=== PATIENT | female | born 1950 | race Caucasian/White ===

== ENCOUNTER 2019-04-03 11:00 | Inpatient (IN) ==
[2019-04-03] MEDS ORDERED: LEVSIN/MAALOX/LIDOC VISC PO PRN (11:30)
[2019-04-03] MEDS ORDERED: NORCO 5/325 MG TAB PO PRN (11:30)
[2019-04-03] MEDS ORDERED: MAGNESIUM SULFATE 1 GRAM/100 mL PREMIX 1 GM/100 ML BAG IV PRN (11:30)
[2019-04-03] MEDS ORDERED: COLACE CAP 100 MG PO PRN (11:30)
[2019-04-03] MEDS ORDERED: MAALOX or MYLANTA PO PRN (11:30)
[2019-04-03] MEDS ORDERED: K-RIDER 10 MEQ/NS 100 ML 10 MEQ/100 ML BAG IV PRN (11:30)
[2019-04-03] MEDS ORDERED: MILK OF MAGNESIA PO PRN (11:30)
[2019-04-03] MEDS: DUONEB 0.5 MG/3 MG (3 mL) NEB SCH ×3 (12:01→21:02)
[2019-04-03 12:11] VITALS: BMI 28.4
[2019-04-03] MEDS ORDERED: DUONEB 0.5 MG/3 MG (3 mL) NEB SCH (13:00)
[2019-04-03] MEDS: FORTAZ or TAZICEF VIAL INJ 1 G in NS 100 ML IV + SPIKE MINIBAG* 100 ML IV SCH ×2 (14:36→21:19)
[2019-04-03] MEDS: CARDIZEM TAB 30 MG PLAIN PO SCH ×2 (14:36→21:19)
--- NOTE | 2019-04-03 14:45 | PT/OTEVAL ---
PT/OT OBJECTIVES - HISTORY Prescription: PT consult Diagnosis: Swingbed-Pneumonia Renal failure Precautions: falls, SOB, O2 @ 2L PMH: Pneumonia. Hyponatremia, Renal failure, weakness, Bradycardia Prior Level of Function: Independent Other, comment: Pt lives by herself and is indep c gross functional mobility prior hosp - COGNITION Mental Status: Alert, Oriented, Name, Date, Place, Purpose, Anxious, Decreased Safety Awarenes Communication Status: Verbal, Hard of Hearing Ability to Follow Directions: 2 Step - BED MOBILITY Rolling: Moderate, x1 Scooting: Moderate, x1 Bridging: Moderate, x1 - TRANSFERS Supine to Sit: Moderate, x1 Sit to Stand: Moderate, x1 Sit or Stand Pivot: Moderate, x1 - BALANCE Static Sitting: Good Standing: Fair Dynamic Sitting: Fair Standing: Poor - NEUROMOTOR/SENSATION Naveen. Lower Ext Sensation: WFL Coordination: WFL Naveen. Upper Ext Sensation: WFL Coordination: WFL - ROM Bilateral LE ROM: WFL - STRENGTH Bilateral LE Strength Number: 3 Other comment: 3- Bilateral UE Strength Number: 3 - GAIT Pt. ambulates how many feet?: 30 Amount of assistance required: Moderate Amount of Assistance Required: Moderate Type of Assistive Device: Rolling Walker Comments: O2 @ 2L PT/OT ASSESSMENT - PT Problem List: Decreased Bed Mobility, Decreased Transfers, Decreased Gait, Decreased Balance, Decreased Safety, Decreased LE Strength - PT GOALS Short Term Goals Days: 10 Mobility: Pt to be indep c bed mobility to allow return to PLOF Transfers: Pt to be indep c transfers to allow return to PLOF Gait: Pt to ambulate 120 ft @ min supervision to increase tolerance Halfway Goals Days: 20 Gait: Pt to ambulate 250 ft @ minimal supervision to increase tolerance Balance: Pt to improve standing balance to G+ to reduce risk from falls. ROM/Strength: Pt to increase B LE mm strength 2-3 mm increments from baseline. - PATIENT GOALS Goals Discussed with Patient/Family: Yes Rehabilitation Potential: Good If yes, explain: SOB - PLAN Suggested Treatment Plan: Bed Mobility Training, Therapeutic Activity, Gait Training, Neuro Re-education, Therapeutic Ex with HEP, Patient Education - FREQUENCY AND DURATION PT: 6x Expected Continuation of Care at Discharge: Determined on Progress
--- NOTE | 2019-04-03 14:51 | PT/OTEVAL ---
PT/OT OBJECTIVES - HISTORY Prescription: OT consult Diagnosis: Pneumonia, Renal Failure Precautions: SOB, fall PMH: PMHx is significant but not limited to hyponatremia, renal failure & weakness. Prior Level of Function: Independent Other: Prior to hospitalization, Pt. is independent with ADLs,IADLs & functional mobility w/o any AD. Pt. still drives & no problems with balance prior to hospital admission. - COGNITION Mental Status: Alert, Oriented, Name, Date, Place, Decreased Safety Awarenes Communication Status: Verbal Ability to Follow Directions: 3 Step - TRANSFERS Supine to Sit: Moderate Sit to Stand: Moderate - ADL'S Feeding: Independent Grooming: Setup Upper Body ADL: Minimum Lower Body ADL: Minimum Toileting: Minimum - BALANCE Static Sitting: Good Standing: Fair Dynamic Sitting: Fair Standing: Poor - NEUROMOTOR/SENSATION Naveen. Lower Ext Sensation: WFL Coordination: WFL Naveen. Upper Ext Sensation: WFL Coordination: WFL Proprioception: WFL - HAND DOMINANCE Extremity Function: Hand Dominance: Right - ROM Bilateral UE ROM: WFL Muscle Tone: WFL - STRENGTH Bilateral LE Strength Number: 3 Other comment: 3- Bilateral UE Strength Number: 3 PT/OT ASSESSMENT - OT Problem List: Decreased Mobility ADL's, Decreased Safety Aware, Decreased Dressing, Decreased Bathing, Decreased Grooming, Decreased UE Strength, Other Other, comment: decreased functional activity tolerance - PT GOALS Short Term Goals Days: 10 Mobility: Pt to be indep c bed mobility to allow return to PLOF Transfers: Pt to be indep c transfers to allow return to PLOF Gait: Pt to ambulate 120 ft @ min supervision to increase tolerance Mcc Goals Days: 20 Gait: Pt to ambulate 250 ft @ minimal supervision to increase tolerance Balance: Pt to improve standing balance to G+ to reduce risk from falls. ROM/Strength: Pt to increase B LE mm strength 2-3 mm increments from baseline. - OT GOALS Mcc Goals Days: 20 Mobility for ADL's: Pt will improve toilet t/f independently with AE as needed Safety Awareness: Pt will demonstrate G safety awareness to decrease fall risk Dressing: Pt will perform UB/LB dressing independently with AE as needed. Bathing: Pt will improve bathing skills to independent level Grooming: Pt will improve grooming skills to independent level Upper Ext. Strength/Use: Pt will increase BUE strength to 5/5 to increase ADL,t/f and mobility Other: Pt will imporve F.A.T. to G to increase efficiency with ADL Short Term Goals Days: 10 Mobility for ADL's: Pt will improve toilet t/f w/supv A with AE as needed Safety Awareness: Pt will demonstrate F safety awareness to decrease fall risk Dressing: Pt will perform UB/LB dressing w/supv A with AE as needed. Bathing: Pt will improve bathing skills to w/supv A Grooming: Pt will improve grooming skills to w/supv A Upper Ext. Strength/Use: Pt will increase BUE strength to 4/5 to increase ADL,t/f and mobility Other: Pt will imporve F.A.T. to F+ to increase efficiency with ADL - PATIENT GOALS Patient/Family Goals: return to PLOF Goals Discussed with Patient/Family: Yes Rehabilitation Potential: good Justification for Potential: g family support, able to follow instruction - PLAN Suggested Treatment Plan: Therapeutic Activity, Gait Training, Self Care Training, Neuro Re-education, Therapeutic Ex with HEP, Home Management, Patient Education, Family Education - FREQUENCY AND DURATION OT: 5x a week x hospital stay Expected Continuation of Care at Discharge: Determined on Progress
--- NOTE | 2019-04-03 18:53 | DR.UPDATE ---
H&P Update History and Physical Update: History and Physical reviewed and patient examined. Changes noted: Yes with the following: HAS BEEN RECEIVING TREATMENT FOR PNEUMONIA. SHE WAS CHANGED TO SWINGBED STATUS TODAY FOR AN EXTENDED COURSE OF IV ANTIBIOTICS AND FOR PHYSICAL THERAPY AND REHAB DUE TO GENERALIZED WEAKNESS AND A DECLINE IN GAIT. DURING HER SWINGBED VISIT, WE WILL CONTINUE FORTAZ 1G IV TID, DIFLUCAN 200MG IV DAILY, ALBUMIN 25% IV DAILY, AND PROCAL AT 40 ML/HR. PHYSICAL THERAPY WILL WORK WITH PATIENT MULTIPLE TIMES A DAY. OTHERWISE, WE PLAN TO MONITOR LABS AND WILL MAKE FURTHER ORDERS BASED ON HER IMPROVEMENT AND CONDITION. Prescription drug monitoring program results: PDMP reviewed and no concerns identified H&P Reviewed: Yes Patient was examined?: Yes
[2019-04-03] MEDS ORDERED: PULMICORT NEB TX 0.5 MG NEB SCH (21:00)
[2019-04-03] MEDS: PULMICORT NEB TX 0.5 MG NEB SCH (21:01)
[2019-04-03] MEDS: MAGIC MOUTHWASH MT SCH (21:19)
[2019-04-03] MEDS: MUCINEX DM PO SCH (21:19)
[2019-04-04] MEDS: FORTAZ or TAZICEF VIAL INJ 1 G in NS 100 ML IV + SPIKE MINIBAG* 100 ML IV SCH ×3 (05:48→21:37)
[2019-04-04] MEDS: CARDIZEM TAB 30 MG PLAIN PO SCH ×3 (05:48→21:37)
[2019-04-04] MEDS: DUONEB 0.5 MG/3 MG (3 mL) NEB SCH ×4 (09:16→20:16)
[2019-04-04] MEDS: PULMICORT NEB TX 0.5 MG NEB SCH ×2 (09:17→20:16)
[2019-04-04] MEDS: PROCALAMINE 3 % 1,000 ML IV SCH (09:37)
[2019-04-04] MEDS: VSL#3 PO SCH (09:37)
[2019-04-04] MEDS: ALBUMIN HUMAN 25%- 100 ML 100 ML IV SCH (09:38)
[2019-04-04] MEDS: DIFLUCAN 200 MG IV PREMIX* 200 MG/100 ML BAG IV SCH (09:39)
[2019-04-04] MEDS: LOVENOX INJ 30 MG SYR SC SCH (09:39)
[2019-04-04] MEDS: MUCINEX DM PO SCH ×2 (09:39→20:42)
[2019-04-04] MEDS: MAGIC MOUTHWASH MT SCH ×4 (09:40→20:42)
[2019-04-04] MEDS: SYNTHROID 50 mcg TAB PO SCH (09:40)
[2019-04-04] MEDS: SINGULAIR TAB 10 MG PO SCH (09:40)
[2019-04-04] MEDS: PROTONIX TAB 40 MG PO SCH (09:40)
[2019-04-05] MEDS: CARDIZEM TAB 30 MG PLAIN PO SCH ×3 (05:09→21:10)
[2019-04-05] MEDS: FORTAZ or TAZICEF VIAL INJ 1 G in NS 100 ML IV + SPIKE MINIBAG* 100 ML IV SCH ×3 (05:10→21:10)
[2019-04-05] MEDS: MUCINEX DM PO SCH ×2 (08:57→20:33)
[2019-04-05] MEDS: VSL#3 PO SCH (08:57)
[2019-04-05] MEDS: LOVENOX INJ 30 MG SYR SC SCH (08:57)
[2019-04-05] MEDS: PROTONIX TAB 40 MG PO SCH (08:58)
[2019-04-05] MEDS: SYNTHROID 50 mcg TAB PO SCH (08:58)
[2019-04-05] MEDS: ALBUMIN HUMAN 25%- 100 ML 100 ML IV SCH (08:58)
[2019-04-05] MEDS: DIFLUCAN 200 MG IV PREMIX* 200 MG/100 ML BAG IV SCH (08:58)
[2019-04-05] MEDS: SINGULAIR TAB 10 MG PO SCH (08:58)
[2019-04-05] MEDS: MAGIC MOUTHWASH MT SCH ×4 (08:59→20:36)
[2019-04-05] MEDS: PULMICORT NEB TX 0.5 MG NEB SCH ×2 (09:10→20:40)
[2019-04-05] MEDS: DUONEB 0.5 MG/3 MG (3 mL) NEB SCH ×4 (09:10→20:40)
[2019-04-05] MEDS: PROCALAMINE 3 % 1,000 ML IV SCH (14:12)
[2019-04-06] MEDS ORDERED: NS 250 ML IV 250 ML IV ONE (02:37)
[2019-04-06] MEDS: FORTAZ or TAZICEF VIAL INJ 1 G in NS 100 ML IV + SPIKE MINIBAG* 100 ML IV SCH ×3 (05:15→21:00)
[2019-04-06] MEDS: CARDIZEM TAB 30 MG PLAIN PO SCH ×3 (05:15→21:00)
[2019-04-06] MEDS: NS 250 ML IV 250 ML IV PRN ×2 (05:16→20:52)
[2019-04-06 07:10] LABS: BASOPHILS % (AUTO) 0.8 % (0.2-1.0); EOSINOPHILS # (AUTO) 0.1 x10^3/uL (0.0-0.2); EOSINOPHILS % (AUTO) 1.9 % (0.9-2.9); HEMATOCRIT 25.7 % (36.0-47.0); HEMOGLOBIN 8.7 g/dL (12.0-16.0); LYMPHOCYTES # (AUTO) 0.5 X10^3/uL (1.3-2.9); LYMPHOCYTES % (AUTO) 13.4 % (21.0-51.0); MEAN CORPUSCULAR HGB CONC 33.8 g/dL (33.0-35.0); MEAN CORPUSCULAR VOLUME 82.9 fL (80.0-100.0); MEAN PLATELET VOLUME 7.7 fL (7.4-11.0); MONOCYTES # (AUTO) 0.3 x10^3/uL (0.3-0.8); NEUTROPHILS # (AUTO) 2.8 x10^3/uL (2.2-4.8); NEUTROPHILS % (AUTO) 75.9 % (42.0-75.0); PLATELET COUNT 193 X10^3/uL (150.0-450.0); RED CELL DISTRIBUTION WIDTH 14.9 % (11.6-16.5); WHITE BLOOD COUNT 3.6 X10^3/uL (3.6-10.0)
[2019-04-06 07:44] LABS: ALANINE AMINOTRANSFERASE 20 Units/L (12-78); ALBUMIN 2.8 g/dL (3.4-5.0); ALKALINE PHOSPHATASE 82 Units/L (46-116); ASPARTATE AMINO TRANSFERASE 15 Units/L (15-37); BLOOD UREA NITROGEN 14 mg/dL (7-18); CALCIUM 7.4 mg/dL (8.5-10.1); CHLORIDE 102 mmol/L (98-107); COR CA(FOR HYPOALB) 8.4 mg/dL (8.5-10.1); CREATININE 0.79 mg/dL (0.55-1.02); SODIUM 139 mmol/L (136-145); TOTAL PROTEIN 5.1 g/dL (6.4-8.2); eGFR NON BLACK RACES > 60 (>60)
[2019-04-06] MEDS: DUONEB 0.5 MG/3 MG (3 mL) NEB SCH ×4 (09:12→20:22)
[2019-04-06] MEDS: PULMICORT NEB TX 0.5 MG NEB SCH ×2 (09:13→20:22)
[2019-04-06] MEDS: LOVENOX INJ 30 MG SYR SC SCH (09:17)
[2019-04-06] MEDS: MUCINEX DM PO SCH ×2 (09:18→20:53)
[2019-04-06] MEDS: VSL#3 PO SCH (09:18)
[2019-04-06] MEDS: PROTONIX TAB 40 MG PO SCH (09:19)
[2019-04-06] MEDS: SINGULAIR TAB 10 MG PO SCH (09:19)
[2019-04-06] MEDS: SYNTHROID 50 mcg TAB PO SCH (09:19)
[2019-04-06] MEDS: DIFLUCAN 200 MG IV PREMIX* 200 MG/100 ML BAG IV SCH (09:19)
[2019-04-06] MEDS: ALBUMIN HUMAN 25%- 100 ML 100 ML IV SCH (09:30)
[2019-04-06] MEDS ORDERED: K-RIDER 10 MEQ/NS 100 ML 10 MEQ/100 ML BAG IV PRN (11:12)
[2019-04-06] MEDS ORDERED: POTASSIUM CHL 60 MEQ/NS 0.45% 500 ML IV PRN (11:12)
[2019-04-06] MEDS ORDERED: POTASSIUM CHL 40 MEQ/NS 0.45% 500 ML IV PRN (11:12)
[2019-04-06] MEDS ORDERED: KLOR-CON PO PRN (11:12)
[2019-04-06] MEDS ORDERED: POTASSIUM CHLORIDE LIQ 20 MEQ UDC PO PRN (11:12)
[2019-04-06] MEDS ORDERED: MICRO K EXTEN CAP 10 MEQ PO PRN (11:12)
[2019-04-06] MEDS: MAGIC MOUTHWASH MT SCH ×4 (11:13→20:52)
[2019-04-06] MEDS: PROCALAMINE 3 % 1,000 ML IV SCH (11:14)
[2019-04-06] MEDS: K-DUR TAB 20 MEQ PO PRN ×2 (11:40→15:42)
[2019-04-06] MEDS: MAGNESIUM SULFATE 1 GRAM/100 mL PREMIX 2 G/200 ML BAG IV SCH ×2 (13:15→15:42)
[2019-04-07] MEDS: PROCALAMINE 3 % 1,000 ML IV SCH ×2 (02:28→10:32)
[2019-04-07] MEDS: CARDIZEM TAB 30 MG PLAIN PO SCH ×3 (05:09→21:05)
[2019-04-07] MEDS: FORTAZ or TAZICEF VIAL INJ 1 G in NS 100 ML IV + SPIKE MINIBAG* 100 ML IV SCH ×3 (05:09→21:06)
[2019-04-07 06:22] LABS: MAGNESIUM 2.2 mg/dL (1.7-2.9)
[2019-04-07] MEDS: DUONEB 0.5 MG/3 MG (3 mL) NEB SCH ×4 (09:56→20:45)
[2019-04-07] MEDS: PULMICORT NEB TX 0.5 MG NEB SCH ×2 (09:56→20:45)
[2019-04-07] MEDS: MUCINEX DM PO SCH ×2 (09:58→21:05)
[2019-04-07] MEDS: DIFLUCAN 200 MG IV PREMIX* 200 MG/100 ML BAG IV SCH (09:58)
[2019-04-07] MEDS: SYNTHROID 50 mcg TAB PO SCH (09:59)
[2019-04-07] MEDS: ALBUMIN HUMAN 25%- 100 ML 100 ML IV SCH (09:59)
[2019-04-07] MEDS: SINGULAIR TAB 10 MG PO SCH (09:59)
[2019-04-07] MEDS: VSL#3 PO SCH (09:59)
[2019-04-07] MEDS: PROTONIX TAB 40 MG PO SCH (10:00)
[2019-04-07] MEDS: MAGIC MOUTHWASH MT SCH ×4 (10:01→21:06)
[2019-04-07] MEDS: LOVENOX INJ 30 MG SYR SC SCH (10:14)
[2019-04-08] MEDS: CARDIZEM TAB 30 MG PLAIN PO SCH ×3 (05:21→21:07)
[2019-04-08] MEDS: FORTAZ or TAZICEF VIAL INJ 1 G in NS 100 ML IV + SPIKE MINIBAG* 100 ML IV SCH ×3 (05:21→21:05)
[2019-04-08 06:33] LABS: ABG BASE EXCESS 5.5 mmol/L (-2.0-2.0)
[2019-04-08 06:34] LABS: ABG HCO3 33.5 mmol/L (22-26)
--- NOTE | 2019-04-08 07:52 | RAD ---
HISTORYSOBSTUDYPortable AP chestCOMPARISONFebruary 2019FINDINGSThere is increasing opacification of the right upper lobe with less volume loss. There are Kevin traits at the lung bases. The left upper lobe is clear and the heart size is normal. No significant effusion is suggested.IMPRESSIONIncreasingly severe consolidation in the right upper lobe2. Bibasilar subsegmental atelectasisElectronically signed by: EMI PEPE (Apr 08, 2019 07:50:47)
[2019-04-08] MEDS: LOVENOX INJ 30 MG SYR SC SCH (08:56)
[2019-04-08] MEDS: DIFLUCAN 200 MG IV PREMIX* 200 MG/100 ML BAG IV SCH (08:57)
[2019-04-08] MEDS: ALBUMIN HUMAN 25%- 100 ML 100 ML IV SCH (08:57)
[2019-04-08] MEDS: VSL#3 PO SCH (09:03)
[2019-04-08] MEDS: SYNTHROID 50 mcg TAB PO SCH (09:04)
[2019-04-08] MEDS: PROTONIX TAB 40 MG PO SCH (09:04)
[2019-04-08] MEDS: SINGULAIR TAB 10 MG PO SCH (09:04)
[2019-04-08] MEDS: MUCINEX DM PO SCH ×2 (09:04→21:06)
[2019-04-08] MEDS: MAGIC MOUTHWASH MT SCH ×4 (09:05→21:07)
[2019-04-08] MEDS: PROCALAMINE 3 % 1,000 ML IV SCH (09:05)
[2019-04-08] MEDS: PULMICORT NEB TX 0.5 MG NEB SCH ×2 (09:16→20:15)
[2019-04-08] MEDS: DUONEB 0.5 MG/3 MG (3 mL) NEB SCH ×4 (09:16→20:15)
[2019-04-08 11:49] LABS: BASOPHILS % (AUTO) 0.8 % (0.2-1.0); EOSINOPHILS % (AUTO) 0.4 % (0.9-2.9); HEMATOCRIT 24.7 % (36.0-47.0); HEMOGLOBIN 8.3 g/dL (12.0-16.0); LYMPHOCYTES # (AUTO) 0.4 X10^3/uL (1.3-2.9); LYMPHOCYTES % (AUTO) 8.3 % (21.0-51.0); MEAN CORPUSCULAR HEMOGLOBIN 27.8 pg (27.0-34.0); MEAN CORPUSCULAR HGB CONC 33.6 g/dL (33.0-35.0); MEAN CORPUSCULAR VOLUME 82.8 fL (80.0-100.0); MEAN PLATELET VOLUME 7.7 fL (7.4-11.0); MONOCYTES # (AUTO) 0.3 x10^3/uL (0.3-0.8); NEUTROPHILS # (AUTO) 3.7 x10^3/uL (2.2-4.8); NEUTROPHILS % (AUTO) 83.5 % (42.0-75.0); PLATELET COUNT 157 X10^3/uL (150.0-450.0); RED BLOOD COUNT 2.98 X10^6/uL (3.5-5.4); RED CELL DISTRIBUTION WIDTH 15.3 % (11.6-16.5); WHITE BLOOD COUNT 4.4 X10^3/uL (3.6-10.0)
--- NOTE | 2019-04-08 11:53 | CT ---
HISTORYCOUGH, SOB, PNEUMONIA, RESPIRATORY DISTRESSSTUDYCT chest after intravenous infusion of 100 milliliters Omnipaque 350. Sagittal and coronal reformations were provided. Axial MIPS were displayed. Dose reduction techniques were utilized.COMPARISONFebruary 2019FINDINGSThere are small bilateral pleural effusions increased in size from March 29 with bibasilar adjacent subsegmental atelectasis. There is little change in consolidation in the right upper lobe primarily involving the posterior and apical segments with multiple cavitary lesions. No pulmonary embolus is demonstrated. There is an unchanged approximately 2 cm cyst in the tail of the pancreas. Gallbladder is unremarkable. There is mild anterior wedging of T12 and L1 unchanged.IMPRESSIONIncreased size of small bilateral pleural effusions with adjacent subsegmental atelectasis2. Persistent consolidation and cystic changes or multiple cavities in the posterior and apical segments of the right upper lobe, not significantly changed.Electronically signed by: EIM PEPE (Apr 08, 2019 11:51:25)
[2019-04-08 11:56] LABS: ALANINE AMINOTRANSFERASE 33 Units/L (12-78); ALBUMIN 3.4 g/dL (3.4-5.0); ALKALINE PHOSPHATASE 138 Units/L (46-116); ASPARTATE AMINO TRANSFERASE 40 Units/L (15-37); BLOOD UREA NITROGEN 19 mg/dL (7-18); CALCIUM 7.8 mg/dL (8.5-10.1); CARBON DIOXIDE 31.6 mmol/L (21-32); CHLORIDE 98 mmol/L (98-107); CREATININE 1.02 mg/dL (0.55-1.02); SODIUM 134 mmol/L (136-145); TOTAL PROTEIN 6.1 g/dL (6.4-8.2); eGFR NON BLACK RACES 57 (>60)
[2019-04-08] MEDS: LEVAQUIN PREMIX IV 500 MG 500 MG/100 ML BAG IV SCH (12:00)
[2019-04-08] MEDS: LASIX IVP SCH ×2 (15:30→21:06)
[2019-04-09] MEDS: CARDIZEM TAB 30 MG PLAIN PO SCH ×3 (05:48→21:31)
[2019-04-09] MEDS: FORTAZ or TAZICEF VIAL INJ 1 G in NS 100 ML IV + SPIKE MINIBAG* 100 ML IV SCH ×3 (05:49→21:31)
[2019-04-09 06:41] LABS: BASOPHILS % (AUTO) 1.1 % (0.2-1.0); EOSINOPHILS # (AUTO) 0.1 x10^3/uL (0.0-0.2); EOSINOPHILS % (AUTO) 2.4 % (0.9-2.9); HEMATOCRIT 22.7 % (36.0-47.0); HEMOGLOBIN 7.5 g/dL (12.0-16.0); LYMPHOCYTES # (AUTO) 0.4 X10^3/uL (1.3-2.9); LYMPHOCYTES % (AUTO) 15.4 % (21.0-51.0); MEAN CORPUSCULAR HEMOGLOBIN 27.4 pg (27.0-34.0); MEAN CORPUSCULAR HGB CONC 33.2 g/dL (33.0-35.0); MEAN CORPUSCULAR VOLUME 82.6 fL (80.0-100.0); MEAN PLATELET VOLUME 7.9 fL (7.4-11.0); MONOCYTES # (AUTO) 0.2 x10^3/uL (0.3-0.8); MONOCYTES % (AUTO) 8.4 % (0.0-13.0); NEUTROPHILS # (AUTO) 1.8 x10^3/uL (2.2-4.8); NEUTROPHILS % (AUTO) 72.7 % (42.0-75.0); PLATELET COUNT 133 X10^3/uL (150.0-450.0); RED BLOOD COUNT 2.75 X10^6/uL (3.5-5.4); RED CELL DISTRIBUTION WIDTH 15.2 % (11.6-16.5); WHITE BLOOD COUNT 2.5 X10^3/uL (3.6-10.0)
--- NOTE | 2019-04-09 06:45 | RAD ---
HISTORYFollow-up pneumoniaSTUDYCHEST, 1 VIEWCOMPARISONFebruary 2019 plain film and chest CTFINDINGSThe heart is within normal limits in size. No congestive heart failure is noted. Persistent consolidation in the right upper lobe is unchanged. There are some cystic and possibly cavitary changes within the consolidation. The remainder of the lung arredondo are clear. The pleural effusions visible on CT are not well demonstrated on this examination.IMPRESSIONPersistent consolidation right upper lobe with some cystic or cavitary changes within the area of consolidation. The appearance is unchanged from the prior examinationElectronically signed by: ANA ROSA ANTOINE (Apr 09, 2019 06:44:31)
[2019-04-09 06:58] LABS: ALANINE AMINOTRANSFERASE 26 Units/L (12-78); ALBUMIN 2.9 g/dL (3.4-5.0); ALKALINE PHOSPHATASE 116 Units/L (46-116); ASPARTATE AMINO TRANSFERASE 21 Units/L (15-37); BLOOD UREA NITROGEN 16 mg/dL (7-18); CARBON DIOXIDE 31.9 mmol/L (21-32); CHLORIDE 99 mmol/L (98-107); COR CA(FOR HYPOALB) 8.9 mg/dL (8.5-10.1); CREATININE 0.95 mg/dL (0.55-1.02); SODIUM 135 mmol/L (136-145); TOTAL PROTEIN 5.6 g/dL (6.4-8.2); eGFR NON BLACK RACES > 60 (>60)
[2019-04-09 06:59] LABS: HYPOCHROMASIA SLIGHT; MICROCYTOSIS SLIGHT; PLATELET MORPHOLOGY COMMENT NORMAL (NORMAL)
[2019-04-09] MEDS: SYNTHROID 50 mcg TAB PO SCH (08:55)
[2019-04-09] MEDS: VSL#3 PO SCH (08:55)
[2019-04-09] MEDS: MUCINEX DM PO SCH ×2 (08:56→21:31)
[2019-04-09] MEDS: ALBUMIN HUMAN 25%- 100 ML 100 ML IV SCH (08:56)
[2019-04-09] MEDS: SINGULAIR TAB 10 MG PO SCH (08:56)
[2019-04-09] MEDS: PROTONIX TAB 40 MG PO SCH (08:57)
[2019-04-09] MEDS: LEVAQUIN PREMIX IV 500 MG 500 MG/100 ML BAG IV SCH (08:58)
[2019-04-09] MEDS: DIFLUCAN 200 MG IV PREMIX* 200 MG/100 ML BAG IV SCH (08:58)
[2019-04-09] MEDS: LOVENOX INJ 30 MG SYR SC SCH (08:59)
[2019-04-09] MEDS: LASIX IVP SCH ×2 (09:00→21:30)
[2019-04-09] MEDS: MAGIC MOUTHWASH MT SCH ×4 (09:01→21:31)
[2019-04-09] MEDS: PULMICORT NEB TX 0.5 MG NEB SCH ×2 (09:08→20:30)
[2019-04-09] MEDS: DUONEB 0.5 MG/3 MG (3 mL) NEB SCH ×4 (09:08→20:30)
[2019-04-09] MEDS ORDERED: TYLENOL 325 MG TAB PO PRN (09:38)
[2019-04-09] MEDS ORDERED: BENADRYL INJ 50 MG VIAL IVP ONE (09:38)
[2019-04-09] MEDS ORDERED: LASIX IVP ONE (09:38)
[2019-04-09] MEDS: PROCALAMINE 3 % 1,000 ML IV SCH (14:14)
[2019-04-09] MEDS ORDERED: BENADRYL INJ 50 MG VIAL ONE (17:09)
[2019-04-10 03:08] LABS: HEMATOCRIT 29.3 % (36.0-47.0)
[2019-04-10] MEDS: CARDIZEM TAB 30 MG PLAIN PO SCH ×3 (05:52→21:00)
[2019-04-10] MEDS: FORTAZ or TAZICEF VIAL INJ 1 G in NS 100 ML IV + SPIKE MINIBAG* 100 ML IV SCH ×3 (05:53→21:01)
[2019-04-10] MEDS: PULMICORT NEB TX 0.5 MG NEB SCH ×2 (08:33→19:52)
[2019-04-10] MEDS: DUONEB 0.5 MG/3 MG (3 mL) NEB SCH ×4 (08:33→19:52)
[2019-04-10] MEDS: ALBUMIN HUMAN 25%- 100 ML 100 ML IV SCH (09:18)
[2019-04-10] MEDS: LEVAQUIN PREMIX IV 500 MG 500 MG/100 ML BAG IV SCH (09:18)
[2019-04-10] MEDS: DIFLUCAN 200 MG IV PREMIX* 200 MG/100 ML BAG IV SCH (09:18)
[2019-04-10] MEDS: VSL#3 PO SCH (09:19)
[2019-04-10] MEDS: MUCINEX DM PO SCH ×2 (09:19→20:59)
[2019-04-10] MEDS: LASIX IVP SCH ×2 (09:20→20:59)
[2019-04-10] MEDS: SYNTHROID 50 mcg TAB PO SCH (09:20)
[2019-04-10] MEDS: MAGIC MOUTHWASH MT SCH ×4 (09:20→21:01)
[2019-04-10] MEDS: PROTONIX TAB 40 MG PO SCH (09:21)
[2019-04-10] MEDS: SINGULAIR TAB 10 MG PO SCH (09:21)
[2019-04-10] MEDS: MVI IV SCH ×3 (16:21)
[2019-04-10] MEDS: TPN ELECTROLYTES IV SCH ×3 (16:21)
[2019-04-10] MEDS: [UNRECOGNIZED DRUG - OTHER] IV SCH ×3 (16:21)
[2019-04-10] MEDS: CLINIMIX IV SCH ×3 (16:21)
[2019-04-10] MEDS: K-DUR TAB 20 MEQ PO PRN (21:00)
[2019-04-11] MEDS: FORTAZ or TAZICEF VIAL INJ 1 G in NS 100 ML IV + SPIKE MINIBAG* 100 ML IV SCH ×2 (05:38→14:17)
[2019-04-11] MEDS: CARDIZEM TAB 30 MG PLAIN PO SCH ×2 (05:38→14:17)
[2019-04-11 06:09] LABS: BASOPHILS % (AUTO) 1.2 % (0.2-1.0); EOSINOPHILS # (AUTO) 0.1 x10^3/uL (0.0-0.2); EOSINOPHILS % (AUTO) 3.8 % (0.9-2.9); HEMATOCRIT 28.7 % (36.0-47.0); HEMOGLOBIN 9.9 g/dL (12.0-16.0); LYMPHOCYTES # (AUTO) 0.4 X10^3/uL (1.3-2.9); LYMPHOCYTES % (AUTO) 12.9 % (21.0-51.0); MEAN CORPUSCULAR HEMOGLOBIN 28.4 pg (27.0-34.0); MEAN CORPUSCULAR HGB CONC 34.6 g/dL (33.0-35.0); MEAN CORPUSCULAR VOLUME 82.3 fL (80.0-100.0); MEAN PLATELET VOLUME 7.6 fL (7.4-11.0); MONOCYTES # (AUTO) 0.3 x10^3/uL (0.3-0.8); MONOCYTES % (AUTO) 10.3 % (0.0-13.0); NEUTROPHILS # (AUTO) 2.2 x10^3/uL (2.2-4.8); NEUTROPHILS % (AUTO) 71.8 % (42.0-75.0); PLATELET COUNT 184 X10^3/uL (150.0-450.0); RED BLOOD COUNT 3.49 X10^6/uL (3.5-5.4); RED CELL DISTRIBUTION WIDTH 14.7 % (11.6-16.5); WHITE BLOOD COUNT 3.1 X10^3/uL (3.6-10.0)
[2019-04-11 06:20] LABS: PREALBUMIN 11.9 mg/dL (18-35.7)
--- NOTE | 2019-04-11 06:21 | RAD ---
HISTORYShortness of breathSTUDYCHEST, 1 VIEWCOMPARAshtabula County Medical Centerbruary 2019FINDINGSThe heart remains within normal limits in size. No congestive heart failure is noted. There is persistent consolidation in the right upper lobe within which there is some cystic or cavitary change. There is now some right upper lobe volume loss as evidence by upward bowing of the minor fissure. The remainder of the lung arredondo are hyperinflated. There is now a new right lower lobe infiltrate present. The left lung is clear. No pleural effusions are identified. The bony thorax is unremarkable.IMPRESSIONPersistent right upper lobe consolidation now with some associated volume lossNew right basilar lung infiltrateLeft lung remains hyperinflated but clearElectronically signed by: ANA ROSA ANTOINE (Apr 11, 2019 06:20:45)
[2019-04-11 06:31] LABS: ALANINE AMINOTRANSFERASE 18 Units/L (12-78); ALBUMIN 3.1 g/dL (3.4-5.0); ALKALINE PHOSPHATASE 94 Units/L (46-116); ASPARTATE AMINO TRANSFERASE 15 Units/L (15-37); BLOOD UREA NITROGEN 16 mg/dL (7-18); CALCIUM 8.3 mg/dL (8.5-10.1); CARBON DIOXIDE 33.9 mmol/L (21-32); CHLORIDE 98 mmol/L (98-107); COR NA(FOR HYPERGLY) 139 mmol/L (136-145); CREATININE 0.97 mg/dL (0.55-1.02); MAGNESIUM 1.5 mg/dL (1.7-2.9); PHOSPHORUS 2.8 mg/dL (2.6-4.7); SODIUM 138 mmol/L (136-145); TRIGLYCERIDES 63 mg/dL (0-150); eGFR NON BLACK RACES > 60 (>60)
[2019-04-11 08:29] VITALS: BP 158/92
[2019-04-11] MEDS: MAGNESIUM SULFATE 1 GRAM/100 mL PREMIX 1 GM/100 ML BAG IV PRN ×2 (08:42→09:42)
[2019-04-11] MEDS: PULMICORT NEB TX 0.5 MG NEB SCH (08:53)
[2019-04-11] MEDS: DUONEB 0.5 MG/3 MG (3 mL) NEB SCH ×2 (08:53→13:19)
[2019-04-11] MEDS: ALBUMIN HUMAN 25%- 100 ML 100 ML IV SCH (09:37)
[2019-04-11] MEDS: LEVAQUIN PREMIX IV 500 MG 500 MG/100 ML BAG IV SCH (09:38)
[2019-04-11] MEDS: DIFLUCAN 200 MG IV PREMIX* 200 MG/100 ML BAG IV SCH (09:38)
[2019-04-11] MEDS: LASIX IVP SCH (09:38)
[2019-04-11] MEDS: MAGIC MOUTHWASH MT SCH ×2 (09:39→13:53)
[2019-04-11] MEDS: PROTONIX TAB 40 MG PO SCH (09:39)
[2019-04-11] MEDS: MUCINEX DM PO SCH (09:39)
[2019-04-11] MEDS: SINGULAIR TAB 10 MG PO SCH (09:40)
[2019-04-11] MEDS: SYNTHROID 50 mcg TAB PO SCH (09:40)
[2019-04-11] MEDS: VSL#3 PO SCH (09:40)
[2019-04-11 09:48] LABS: ABG BASE EXCESS 11.4 mmol/L (-2.0-2.0); ABG HCO3 36.5 mmol/L (22-26)
--- NOTE | 2019-04-11 10:37 | PCM.PROG ---
Progress Note - Progress Note for Day of Date of Exam: 04/06/19 - Subjective Subjective: IS CURRENTLY SWINGBED STATUS FOR PNEUMONIA. SHE IS RECEIVING IV ANTIBIOTICS, RESPIRATORY TX, AND SUPPLEMENTAL OXGYEN. HOME MEDICATIONS WERE ALSO RESUEMED. SHE IS ALSO RECEIVING PHYSICAL THERAPY AND OCCUPATIONAL THERAPY FOR GENERALIZED WEAKNESS AND A DECLINE IN GAIT AND ADLs. TODAY, SHE IS ALERT AND ORIENTED, LYING IN BED ON MORNING ROUND. SHE CONTINUES WITH COUGH AND WEAKNESS THIS MORNING, BUT REPORTS SLIGHT IMPROVEMENT IN SYMPTOMS. ON EXAMINATION, HEART IS REGULAR IN RATE AND RHYTHM. BILATERAL LUNGS CONTINUE WITH SCATTERED WHEEZING AND RHONCHI THROUGHOUT. ABDOMEN IS ROUND, SOFT, AND NON-TENDER WITH NORMAL BOWEL SOUNDS NOTED IN ALL QUADRANTS. HER VITALS HIS MORNING ARE: 98.0-83-20-94%-150/77. LABS WERE OBTAINED. ABNORMAL LAB VALUES INCLUDE THE FOLLOWING: RBC 3.10, HGB 8.7, HCT 25.7, POTASSIUM 3.3, CARBON DIOXIDE 33.0, GLUCOSE 101, CALCIUM 7.4, TOTAL PROTEIN 5.1, ALBUMIN 2.8. SPUTUM AND BLOOD CULTURES ARE NEGATIVE. SHE IS RECEIVING IV FORTAZ, SOLU-MEDROL 40MG IV Q8H, DIFLUCAN, ALBUMIN IV, RESPIRATORY TX, SUPPELMENTAL OXYGEN, MUCOMYST, AND CARDIZEM 30MG PO TID. WE WILL CONTINUE WITH CURRENT PLAN OF CARE TODAY AND ADD THE POTASSIUM AND MAGNESIUM PROTOCOLS. OTHERWISE, WE WILL CONTINUE TO MONITOR LABS AND XRAY. - Past Medical Family Social History Past Med/Fam/Surg Hx: No changes since H&P Allergies: Allergies No Known Drug Allergies Allergy (Verified 03/21/19 09:43) - Review of Systems ROS: No change since H&P - Vital Signs and I&O's Vital Signs: Temperature 97.9 F Pulse Rate [Right Radial] 80 Pulse Rate 75 Respiratory Rate 20 Blood Pressure [Left Arm] 159/92 Blood Pressure [Right Arm] 158/92 O2 Sat by Pulse Oximetry 98 Intake and Output: Intake & Output 04/08/19 04/09/19 04/10/19 04/11/19 11:59 11:59 11:59 11:59 Intake Total 1780 / 1780 1030 / 1030 2470 / 2470 2340 / 2340 Balance 1780 / 1780 1030 / 1030 2470 / 2470 2340 / 2340 - Physical Exam Oriented: Normal Eyes: Normal Ear: Normal Nose: Normal Throat: Normal Respiratory: Generalized, Diminished, Wheezes, Rhonchi Cardiovascular: Normal : Normal Auscultation: Bowel Sounds: Normal Palpation: Normal Tenderness: Normal Skin: Normal Musculoskeletal: Normal Psychiatric: Normal Mood Description: Calm Affect: Normal Speech Pattern: Clear, Appropriate - Laboratory and Diagnostics Result Diagrams: 04/11/19 05:49 04/11/19 05:49 Labs: Laboratory WBC 3.1 X10^3/uL (3.6-10.0) L 04/11/19 05:49 RBC 3.49 X10^6/uL (3.5-5.4) L 04/11/19 05:49 Hgb 9.9 g/dL (12.0-16.0) L 04/11/19 05:49 Hct 28.7 % (36.0-47.0) L 04/11/19 05:49 MCV 82.3 fL (80.0-100.0) 04/11/19 05:49 MCH 28.4 pg (27.0-34.0) 04/11/19 05:49 MCHC 34.6 g/dL (33.0-35.0) 04/11/19 05:49 RDW 14.7 % (11.6-16.5) 04/11/19 05:49 Plt Count 184 X10^3/uL (150.0-450.0) 04/11/19 05:49 Plt Count Comment Adequate (ADEQUATE) 04/09/19 06:10 MPV 7.6 fL (7.4-11.0) 04/11/19 05:49 Neut % (Auto) 71.8 % (42.0-75.0) 04/11/19 05:49 Lymph % (Auto) 12.9 % (21.0-51.0) L 04/11/19 05:49 [place] % (Auto) 10.3 % (0.0-13.0) 04/11/19 05:49 Eos % (Auto) 3.8 % (0.9-2.9) H 04/11/19 05:49 Baso % (Auto) 1.2 % (0.2-1.0) H 04/11/19 05:49 Neut # (Auto) 2.2 x10^3/uL (2.2-4.8) 04/11/19 05:49 Lymph # (Auto) 0.4 X10^3/uL (1.3-2.9) L 04/11/19 05:49 [place] # (Auto) 0.3 x10^3/uL (0.3-0.8) 04/11/19 05:49 Eos # (Auto) 0.1 x10^3/uL (0.0-0.2) 04/11/19 05:49 Baso # (Auto) 0.0 X10^3/uL (0.0-0.1) 04/11/19 05:49 Absolute Nucleated RBC 0.0 /100WBC 04/11/19 05:49 Plt Morphology Comment Normal (NORMAL) 04/09/19 06:10 RBC Morphology Abnormal (NORMAL) A 04/09/19 06:10 Hypochromasia Slight A 04/09/19 06:10 Microcytosis Slight A 04/09/19 06:10 Sample Site Left brachial 04/11/19 09:40 ABG pH 7.480 (7.35-7.45) H 04/11/19 09:40 ABG pCO2 49.0 mmHg (35.0-45.0) H 04/11/19 09:40 ABG pO2 71.0 mmHg (80.0-100.0) L 04/11/19 09:40 ABG HCO3 36.5 mmol/L (22-26) H* 04/11/19 09:40 ABG O2 Saturation 95.0 % (90-100) 04/11/19 09:40 ABG Base Excess 11.4 mmol/L (-2.0-2.0) H 04/11/19 09:40 Jose Miguel Test Na 04/11/19 09:40 A-a Gradient 124.0 mmHg 04/11/19 09:40 FiO2 36.0 04/11/19 09:40 Blood Gas Comments Ramana well aw 04/11/19 09:40 Sodium 138 mmol/L (136-145) 04/11/19 05:49 Corrected Sodium 139 mmol/L (136-145) 04/11/19 05:49 Potassium 2.9 mmol/L (3.5-5.1) L* 04/11/19 05:49 Chloride 98 mmol/L (98-107) 04/11/19 05:49 Carbon Dioxide 33.9 mmol/L (21-32) H 04/11/19 05:49 BUN 16 mg/dL (7-18) 04/11/19 05:49 Creatinine 0.97 mg/dL (0.55-1.02) 04/11/19 05:49 Est GFR (MDRD) Af Amer > 60 (>60) 04/11/19 05:49 Est GFR (MDRD) Non-Af > 60 (>60) 04/11/19 05:49 Glucose 121 mg/dL (65-99) H 04/11/19 05:49 Calcium 8.3 mg/dL (8.5-10.1) L 04/11/19 05:49 Corrected Calcium 9.0 mg/dL (8.5-10.1) 04/11/19 05:49 Phosphorus 2.8 mg/dL (2.6-4.7) 04/11/19 05:49 Magnesium 1.5 mg/dL (1.7-2.9) L 04/11/19 05:49 Total Bilirubin 0.50 mg/dL (0.2-1.0) 04/11/19 05:49 AST 15 Units/L (15-37) 04/11/19 05:49 ALT 18 Units/L (12-78) 04/11/19 05:49 Alkaline Phosphatase 94 Units/L (46-116) 04/11/19 05:49 Total Protein 6.0 g/dL (6.4-8.2) L 04/11/19 05:49 Albumin 3.1 g/dL (3.4-5.0) L 04/11/19 05:49 Globulin 2.9 g/dL (2.5-4.5) 04/11/19 05:49 Albumin/Globulin Ratio 1.1 Ratio (1.1-2.1) 04/11/19 05:49 Prealbumin 11.9 mg/dL (18-35.7) L 04/11/19 05:49 Triglycerides 63 mg/dL (0-150) 04/11/19 05:49 Blood Type B NEGATIVE 04/09/19 10:02 Antibody Screen Negative 04/09/19 10:02 Crossmatch See Detail 04/09/19 10:02 - Plan (1) Pneumonia Status: Acute Qualifiers: Pneumonia type: due to unspecified organism Laterality: right Lung location: upper lobe of lung Qualified Code(s): J18.9 - Pneumonia, unspecified organism Plan: IV FORTAZ, IV DIFLUCAN, RESPIRATORY TX, SUPPLEMENTAL OXYGEN, CONTINUE TO MONITOR (2) Yeast infection Status: Acute Plan: DIFLUCAN 200MG IV DAILY, CONTINUE TO MONITOR
--- NOTE | 2019-04-11 10:48 | PCM.PROG ---
Progress Note - Progress Note for Day of Date of Exam: 04/09/19 - Subjective Subjective: IS CURRENTLY SWINGBED STATUS FOR PNEUMONIA. SHE IS RECEIVING IV ANTIBIOTICS, RESPIRATORY TX, AND SUPPLEMENTAL OXGYEN. HOME MEDICATIONS WERE ALSO RESUEMED. SHE IS ALSO RECEIVING PHYSICAL THERAPY AND OCCUPATIONAL THERAPY FOR GENERALIZED WEAKNESS AND A DECLINE IN GAIT AND ADLs. PATIENT HAD AN ACUTE DECLINE YESTERDAY IN HER RESPIRATORY STATUS. SHE WAS PLACED ON THE BIPAP. ABG, LABS, AND CHEST XRAY WERE OBTAINED. ABG REVEALED: PH 7.320, PC02 65.0, P02 75.0, HC03 33.5, 02 SATURATION 94.0, BASE EXCESS 5.5. CHEST XRAY REVEALED: Increasingly severe consolidation in the right upper lobe. Bibasilar subsegmental atelectasis. TODAY, SHE IS ALERT AND ORIENTED, LYING IN BED ON MORNING ROUND. SHE IS CURRENTLY ON NASAL CANNULA.SHE HAS USED THE BIPAP THROUGHOUT THE NIGHT AND THIS MORNING. SHE CONTINUES WITH COUGH AND WEAKNESS THIS MORNING. ON EXAMINATION, HEART IS REGULAR IN RATE AND RHYTHM. BILATERAL LUNGS CONTINUE WITH SCATTERED WHEEZING AND RHONCHI THROUGHOUT. ABDOMEN IS ROUND, SOFT, AND NON-TENDER WITH NORMAL BOWEL SOUNDS NOTED IN ALL QUADRANTS. HER VITALS HIS MORNING ARE: 98.0-78-20-94%-147/79. LABS WERE OBTAINED. ABNORMAL LAB VALUES INCLUDE THE FOLLOWING: WBC 2.5, RBC 2.75, HGB 7.5, HCT 22.7, PLT COUNT 133, SODIUM 135, POTASSIUM 3.4, CALCIUM 8.0, TOTAL PROTEIN 5.6, ALBUMIN 2.9. SPUTUM AND BLOOD CULTURES ARE NEGATIVE. SHE IS RECEIVING IV FORTAZ, IV LEVAQUIN, DIFLUCAN, ALBUMIN IV, RESPIRATORY TX, SUPPELMENTAL OXYGEN, AND CARDIZEM 30MG PO TID. WE WILL CONTINUE WITH CURRENT PLAN OF CARE TODAY AND TRANSFUSE 2 UNITS OF PRBC. OTHERWISE, WE WILL CONTINUE TO MONITOR LABS AND CHEST XRAY AND MAKE ADJUSTMENTS NEEDED. - Past Medical Family Social History Past Med/Fam/Surg Hx: No changes since H&P Allergies: Allergies No Known Drug Allergies Allergy (Verified 03/21/19 09:43) - Review of Systems ROS: No change since H&P - Vital Signs and I&O's Vital Signs: Temperature 97.9 F Pulse Rate [Right Radial] 80 Pulse Rate 75 Respiratory Rate 20 Blood Pressure [Left Arm] 159/92 Blood Pressure [Right Arm] 158/92 O2 Sat by Pulse Oximetry 98 Intake and Output: Intake & Output 04/08/19 04/09/19 04/10/19 04/11/19 11:59 11:59 11:59 11:59 Intake Total 1780 / 1780 1030 / 1030 2470 / 2470 2340 / 2340 Balance 1780 / 1780 1030 / 1030 2470 / 2470 2340 / 2340 - Physical Exam Oriented: Normal Eyes: Normal Ear: Normal Nose: Normal Throat: Normal Respiratory: Generalized, Diminished, Wheezes, Rhonchi Cardiovascular: Normal : Normal Auscultation: Bowel Sounds: Normal Palpation: Normal Tenderness: Normal Skin: Normal Musculoskeletal: Normal Psychiatric: Normal Mood Description: Calm Affect: Normal Speech Pattern: Clear, Appropriate - Laboratory and Diagnostics Result Diagrams: 04/11/19 05:49 04/11/19 05:49 Labs: Laboratory WBC 3.1 X10^3/uL (3.6-10.0) L 04/11/19 05:49 RBC 3.49 X10^6/uL (3.5-5.4) L 04/11/19 05:49 Hgb 9.9 g/dL (12.0-16.0) L 04/11/19 05:49 Hct 28.7 % (36.0-47.0) L 04/11/19 05:49 MCV 82.3 fL (80.0-100.0) 04/11/19 05:49 MCH 28.4 pg (27.0-34.0) 04/11/19 05:49 MCHC 34.6 g/dL (33.0-35.0) 04/11/19 05:49 RDW 14.7 % (11.6-16.5) 04/11/19 05:49 Plt Count 184 X10^3/uL (150.0-450.0) 04/11/19 05:49 Plt Count Comment Adequate (ADEQUATE) 04/09/19 06:10 MPV 7.6 fL (7.4-11.0) 04/11/19 05:49 Neut % (Auto) 71.8 % (42.0-75.0) 04/11/19 05:49 Lymph % (Auto) 12.9 % (21.0-51.0) L 04/11/19 05:49 Terry % (Auto) 10.3 % (0.0-13.0) 04/11/19 05:49 Eos % (Auto) 3.8 % (0.9-2.9) H 04/11/19 05:49 Baso % (Auto) 1.2 % (0.2-1.0) H 04/11/19 05:49 Neut # (Auto) 2.2 x10^3/uL (2.2-4.8) 04/11/19 05:49 Lymph # (Auto) 0.4 X10^3/uL (1.3-2.9) L 04/11/19 05:49 Terry # (Auto) 0.3 x10^3/uL (0.3-0.8) 04/11/19 05:49 Eos # (Auto) 0.1 x10^3/uL (0.0-0.2) 04/11/19 05:49 Baso # (Auto) 0.0 X10^3/uL (0.0-0.1) 04/11/19 05:49 Absolute Nucleated RBC 0.0 /100WBC 04/11/19 05:49 Plt Morphology Comment Normal (NORMAL) 04/09/19 06:10 RBC Morphology Abnormal (NORMAL) A 04/09/19 06:10 Hypochromasia Slight A 04/09/19 06:10 Microcytosis Slight A 04/09/19 06:10 Sample Site Left brachial 04/11/19 09:40 ABG pH 7.480 (7.35-7.45) H 04/11/19 09:40 ABG pCO2 49.0 mmHg (35.0-45.0) H 04/11/19 09:40 ABG pO2 71.0 mmHg (80.0-100.0) L 04/11/19 09:40 ABG HCO3 36.5 mmol/L (22-26) H* 04/11/19 09:40 ABG O2 Saturation 95.0 % (90-100) 04/11/19 09:40 ABG Base Excess 11.4 mmol/L (-2.0-2.0) H 04/11/19 09:40 Jose Miguel Test Na 04/11/19 09:40 A-a Gradient 124.0 mmHg 04/11/19 09:40 FiO2 36.0 04/11/19 09:40 Blood Gas Comments Ramana well aw 04/11/19 09:40 Sodium 138 mmol/L (136-145) 04/11/19 05:49 Corrected Sodium 139 mmol/L (136-145) 04/11/19 05:49 Potassium 2.9 mmol/L (3.5-5.1) L* 04/11/19 05:49 Chloride 98 mmol/L (98-107) 04/11/19 05:49 Carbon Dioxide 33.9 mmol/L (21-32) H 04/11/19 05:49 BUN 16 mg/dL (7-18) 04/11/19 05:49 Creatinine 0.97 mg/dL (0.55-1.02) 04/11/19 05:49 Est GFR (MDRD) Af Amer > 60 (>60) 04/11/19 05:49 Est GFR (MDRD) Non-Af > 60 (>60) 04/11/19 05:49 Glucose 121 mg/dL (65-99) H 04/11/19 05:49 Calcium 8.3 mg/dL (8.5-10.1) L 04/11/19 05:49 Corrected Calcium 9.0 mg/dL (8.5-10.1) 04/11/19 05:49 Phosphorus 2.8 mg/dL (2.6-4.7) 04/11/19 05:49 Magnesium 1.5 mg/dL (1.7-2.9) L 04/11/19 05:49 Total Bilirubin 0.50 mg/dL (0.2-1.0) 04/11/19 05:49 AST 15 Units/L (15-37) 04/11/19 05:49 ALT 18 Units/L (12-78) 04/11/19 05:49 Alkaline Phosphatase 94 Units/L (46-116) 04/11/19 05:49 Total Protein 6.0 g/dL (6.4-8.2) L 04/11/19 05:49 Albumin 3.1 g/dL (3.4-5.0) L 04/11/19 05:49 Globulin 2.9 g/dL (2.5-4.5) 04/11/19 05:49 Albumin/Globulin Ratio 1.1 Ratio (1.1-2.1) 04/11/19 05:49 Prealbumin 11.9 mg/dL (18-35.7) L 04/11/19 05:49 Triglycerides 63 mg/dL (0-150) 04/11/19 05:49 Blood Type B NEGATIVE 04/09/19 10:02 Antibody Screen Negative 04/09/19 10:02 Crossmatch See Detail 04/09/19 10:02 - Plan (1) Pneumonia Status: Acute Qualifiers: Pneumonia type: due to unspecified organism Laterality: right Lung location: upper lobe of lung Qualified Code(s): J18.9 - Pneumonia, unspecified organism Plan: IV FORTAZ, IV DIFLUCAN, RESPIRATORY TX, SUPPLEMENTAL OXYGEN, CONTINUE TO MONITOR (2) Yeast infection Status: Acute Plan: DIFLUCAN 200MG IV DAILY, CONTINUE TO MONITOR (3) Anemia Status: Acute Qualifiers: Anemia type: unspecified type Qualified Code(s): D64.9 - Anemia, unspecified Plan: TRANSFUSE 2 UNITS PRBC, CONTINUE TO MONITOR
[2019-04-11] MEDS: CLINIMIX IV SCH ×3 (14:03)
[2019-04-11] MEDS: TPN ELECTROLYTES IV SCH ×3 (14:03)
[2019-04-11] MEDS: [UNRECOGNIZED DRUG - OTHER] IV SCH ×3 (14:03)
[2019-04-11] MEDS: MVI IV SCH ×3 (14:03)
== END 2019-04-11 15:15 | disposition home or self-care (01) | DRG 194 ==
LOC: MED/SURG 11:00
PROVIDERS: ADMIT Internal Medicine; ATTEND Internal Medicine
DX: Z51.89 Encounter for other specified aftercare; D64.9 Anemia, unspecified; R94.31 Abnormal electrocardiogram [ECG] [EKG]; I12.9 Hypertensive chronic kidney disease with stage 1 through stage 4 chronic kidney disease, or unspecified chronic kidney disease; R26.89 Other abnormalities of gait and mobility; E86.0 Dehydration; M54.89 Other dorsalgia; B37.89 Other sites of candidiasis; K21.9 Gastro-esophageal reflux disease without esophagitis; J18.9 Pneumonia, unspecified organism; R06.02 Shortness of breath; E87.1 Hypo-osmolality and hyponatremia; R53.1 Weakness; R00.1 Bradycardia, unspecified; N18.9 Chronic kidney disease, unspecified
CPT/HCPCS: 36415; 36600; 71010; 71045; 71260; 80053; 82803; 83735; 84100; 84132; 84134; 84478; 85014; 85018; 85025; 86850; 86900; 86901; 86922; 94640; 94660; 94669; 97110; 97116; 97162; 97165; 97530; 97535; A4222; A4618; A7030; B4189; B5200; J0713; J1200; J1450; J1650; J1940; J1956; J3475; J7050; J7620; J7626; P9016; P9047

== ENCOUNTER 2021-01-24 22:47 | Inpatient (IN) ==
[2021-01-24] MEDS ORDERED: SOLU-Medrol 125 MG VIAL IVP ONE (23:07)
[2021-01-24] MEDS ORDERED: DUONEB 0.5 MG/3 MG (3 mL) NEB ONE ×2 (23:07→23:16)
--- NOTE | 2021-01-24 23:08 | DR.SOBA ---
HPI Time Seen Time Seen by Provider: 01/24/21 23:07 HPI Comment HPI Comment: Cough, congestion and worsening sob over the past week for which she went to see her pcp earlier today; taking levaquin and given a shot of solu- medrol at office today; acutely worsened tonight prompting visit; no fever, chi lls, abd pain, n/v/d; lots of head congestion. 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 Family History Family Medical History: Diabetes Mellitus, Cancer and Coronary Artery Disease Social History Do you use any recreational Drugs:: No Travel Risk Coronavirus risk:travel/contact w/high risk person: No Has patient experienced Coronavirus symptoms: Yes Coronavirus symptoms experienced: Shortness of Breath ROS Review of Systems Constitutional: No Symptoms Reported Eyes: No Symptoms Reported ENTM: No Symptoms Reported Cardiovascular: No Symptoms Reported Gastrointestinal/Abdominal: No Symptoms Reported Genitourinary: No Symptoms Reported Neurological: No Symptoms Reported Musculoskeletal: No Symptoms Reported Integumentary: No Symptoms Reported Hematologic/Lymphatic: No Symptoms Reported Endocrine: No Symptoms Reported Psychiatric: No Symptoms Reported PE Vital Signs Vitals: Temperature 98.4 F Pulse Rate 83 Respiratory Rate 24 Blood Pressure [Left Arm] 159/92 Blood Pressure [Right Arm] 158/92 Blood Pressure 133/65 O2 Sat by Pulse Oximetry 100 General Limitations: No Limitations General Appearance: Alert and In No Apparent Distress Head Head Exam: Normal Inspection Eyes Eye exam: Normal Appearance ENT ENT Exam: Normal Exam Neck Neck Exam: Normal Inspection Chest Chest Inspection: Normal Inspection and Symmetric Chest Wall Rise Respiratory Respiratory Exam: Right: Decreased Breath Sounds Cardiovascular Cardiovascular Exam: Regular Rate and Normal Rhythm Abdominal Exam Abdominal Exam: Normal Inspection, Normal Bowel Sounds and Soft Extremities Extremities Exam: Normal Inspection Back Back Exam: Normal Inspection Neurologic Neurological Exam: Alert and Oriented X3 Psychiatric Psychiatric Exam: Normal Affect and Normal Mood Skin Skin Exam: Warm, Dry, Intact and Normal Color MDM Differential Diagnosis Differential Diagnosis: Asthma, Bronchitis, COPD, Mycardial Infarction, Pneumothorax, Pulmonary embolism, Respiratory Failure and Respiratory Insufficiency COURSE Consultation Call Returned: 02:20 (Dr Siddiqi accepts admission.) Education/Counseling Education/Counseling: Patient and Family Educated On: Treatment, Diagnosis and Prognosis Critical Care Notes Total Time (mins): 30 Critical Diagnosis: large rt pneumothorax sob, resp distress Critical Interventions: oxygen, chest tube discussion with Dr Chacko and Dr Siddiqi discussion with son several times re: work up, dx and treatment ROR Labs Reviewed Laboratory Results Reviewed?: Yes Result Diagrams: 01/25/21 04:32 01/25/21 04:32 Laboratory: WBC 7.8 X10^3/uL (3.6-10.0) 01/24/21 23:12 RBC 5.01 X10^6/uL (3.5-5.4) 01/24/21 23:12 Hgb 13.8 g/dL (12.0-16.0) 01/24/21 23:12 Hct 41.8 % (36.0-47.0) 01/24/21 23:12 MCV 83.5 fL (80.0-100.0) 01/24/21 23:12 MCH 27.5 pg (27.0-34.0) 01/24/21 23:12 MCHC 33.0 g/dL (33.0-35.0) 01/24/21 23:12 RDW 14.1 % (11.6-16.5) 01/24/21 23:12 Plt Count 319 X10^3/uL (150.0-450.0) 01/24/21 23:12 MPV 7.4 fL (7.4-11.0) 01/24/21 23:12 Neut % (Auto) 89.1 % (42.0-75.0) H 01/24/21 23:12 Lymph % (Auto) 9.1 % (21.0-51.0) L 01/24/21 23:12 [place] % (Auto) 1.3 % (0.0-13.0) 01/24/21 23:12 Eos % (Auto) 0.1 % (0.9-2.9) L 01/24/21 23:12 Baso % (Auto) 0.4 % (0.2-1.0) 01/24/21 23:12 Neut # (Auto) 7.0 x10^3/uL (2.2-4.8) H 01/24/21 23:12 Lymph # (Auto) 0.7 X10^3/uL (1.3-2.9) L 01/24/21 23:12 [place] # (Auto) 0.1 x10^3/uL (0.3-0.8) L 01/24/21 23:12 Eos # (Auto) 0.0 x10^3/uL (0.0-0.2) 01/24/21 23:12 Baso # (Auto) 0.0 X10^3/uL (0.0-0.1) 01/24/21 23:12 Absolute Nucleated RBC 0.0 /100WBC 01/24/21 23:12 Sample Site Rrad 01/24/21 23:10 ABG pH 7.330 (7.35-7.45) L 01/24/21 23:10 ABG pCO2 50.0 mmHg (35.0-45.0) H 01/24/21 23:10 ABG pO2 54.0 mmHg (80.0-100.0) L 01/24/21 23:10 ABG HCO3 26.4 mmol/L (22-26) H 01/24/21 23:10 ABG O2 Saturation 85.0 % (90-100) L 01/24/21 23:10 ABG Base Excess -0.1 mmol/L (-2.0-2.0) 01/24/21 23:10 Jose Miguel Test Pos 01/24/21 23:10 A-a Gradient 140.0 mmHg 01/24/21 23:10 FiO2 36.0 01/24/21 23:10 Blood Gas Comments Ramana abg well-mtf 01/24/21 23:10 Sodium 137 mmol/L (136-145) 01/24/21 23:12 Corrected Sodium 139 mmol/L (136-145) 01/24/21 23:12 Potassium 4.2 mmol/L (3.5-5.1) 01/24/21 23:12 Chloride 99 mmol/L (98-107) 01/24/21 23:12 Carbon Dioxide 27.4 mmol/L (21-32) 01/24/21 23:12 BUN 17 mg/dL (7-18) 01/24/21 23:12 Creatinine 1.38 mg/dL (0.55-1.02) H 01/24/21 23:12 Est GFR (MDRD) Af Amer 48 (>60) L 01/24/21 23:12 Est GFR (MDRD) Non-Af 40 (>60) L 01/24/21 23:12 Glucose 179 mg/dL (65-99) H 01/24/21 23:12 Calcium 8.9 mg/dL (8.5-10.1) 01/24/21 23:12 Corrected Calcium TNP 01/24/21 23:12 Total Bilirubin 0.40 mg/dL (0.2-1.0) 01/24/21 23:12 AST 28 Units/L (15-37) 01/24/21 23:12 ALT 32 Units/L (12-78) 01/24/21 23:12 Alkaline Phosphatase 105 Units/L (46-116) 01/24/21 23:12 Creatine Kinase 193 Units/L (26-192) H 01/24/21 23:12 CK-MB (CK-2) 11.6 ng/mL (0-4.0) H* 01/24/21 23:12 CK/CKMB % Calc 6.0 % (<4) 01/24/21 23:12 Troponin I 0.16 ng/mL (0-1.5) 01/24/21 23:12 Total Protein 7.1 g/dL (6.4-8.2) 01/24/21 23:12 Albumin 4.0 g/dL (3.4-5.0) 01/24/21 23:12 Globulin 3.1 g/dL (2.5-4.5) 01/24/21 23:12 Albumin/Globulin Ratio 1.3 Ratio (1.1-2.1) 01/24/21 23:12 SARS-CoV-2 (PCR) Negative (NEGATIVE) 01/25/21 00:33 Influenza Type A (PCR) Negative (NEGATIVE) 01/25/21 00:33 Influenza Type B (PCR) Negative (NEGATIVE) 01/25/21 00:33 RSV (PCR) Negative (NEGATIVE) 01/25/21 00:33 XRAY XRAY Interpreted by: Radiologist X-ray Results: chest ct: Large right pneumothorax. Marked emphysematous changes throughout the lungs. pcxr: Tiny residual right pneumothorax following right chest tube insertion. COPD.. Opioid Opioid Risk Tool Age (Geovani box if 16-45): No History of Preadolescent Sexual Abuse: No Total: 0 Total Score Risk Category: Low Risk Copyright: Eugene OBRIEN predicting aberrant behaviors Diagnosis Discharge Problem: Pneumothorax, right, COPD exacerbation, Chest tube in place Instructions Instructions: Pneumothorax Forms: [facility] Patient [facility] Social Distancing
[2021-01-24] MEDS ORDERED: SOLU-Medrol 125 MG VIAL ONE (23:11)
[2021-01-24 23:13] LABS: ABG BASE EXCESS -0.1 mmol/L (-2.0-2.0); ABG HCO3 26.4 mmol/L (22-26)
[2021-01-24 23:14] LABS: ABG ALLEN TEST POS
[2021-01-24 23:21] LABS: BASOPHILS % (AUTO) 0.4 % (0.2-1.0); EOSINOPHILS % (AUTO) 0.1 % (0.9-2.9); HEMATOCRIT 41.8 % (36.0-47.0); HEMOGLOBIN 13.8 g/dL (12.0-16.0); LYMPHOCYTES # (AUTO) 0.7 X10^3/uL (1.3-2.9); LYMPHOCYTES % (AUTO) 9.1 % (21.0-51.0); MEAN CORPUSCULAR HEMOGLOBIN 27.5 pg (27.0-34.0); MEAN CORPUSCULAR VOLUME 83.5 fL (80.0-100.0); MEAN PLATELET VOLUME 7.4 fL (7.4-11.0); MONOCYTES # (AUTO) 0.1 x10^3/uL (0.3-0.8); MONOCYTES % (AUTO) 1.3 % (0.0-13.0); NEUTROPHILS % (AUTO) 89.1 % (42.0-75.0); PLATELET COUNT 319 X10^3/uL (150.0-450.0); RED BLOOD COUNT 5.01 X10^6/uL (3.5-5.4); RED CELL DISTRIBUTION WIDTH 14.1 % (11.6-16.5); WHITE BLOOD COUNT 7.8 X10^3/uL (3.6-10.0)
[2021-01-24 23:58] LABS: ALANINE AMINOTRANSFERASE 32 Units/L (12-78); ALKALINE PHOSPHATASE 105 Units/L (46-116); ASPARTATE AMINO TRANSFERASE 28 Units/L (15-37); BLOOD UREA NITROGEN 17 mg/dL (7-18); CALCIUM 8.9 mg/dL (8.5-10.1); CARBON DIOXIDE 27.4 mmol/L (21-32); CHLORIDE 99 mmol/L (98-107); COR NA(FOR HYPERGLY) 139 mmol/L (136-145); CREATINE KINASE 193 Units/L (26-192); CREATININE 1.38 mg/dL (0.55-1.02); SODIUM 137 mmol/L (136-145); TOTAL PROTEIN 7.1 g/dL (6.4-8.2); TROPONIN I 0.16 ng/mL (0-1.5); eGFR NON BLACK RACES 40 (>60)
[2021-01-25 00:01] LABS: CREATINE KINASE MB 11.6 ng/mL (0-4.0)
--- NOTE | 2021-01-25 00:24 | CT ---
HISTORYSOBSTUDYCHEST W/O [id number] axial images of the chest were obtained from the thoracic inlet to the upper abdomen after the administration of IV contrast. Sagittal and coronal reconstructions were reviewed.. Dose reduction techniques including Automated Exposure Control (AEC) and adjustment of mA and kV were utilized.FINDINGSThe mediastinum does not demonstrate significant pathological lymphadenopathy. There is no paracardial effusion observed. Coronary artery calcifications. The thoracic aorta is normal in its contour without evidence for aneurysmal dilatation.Evaluation of the lung parenchyma demonstrates large right pneumothorax. Marked emphysematous changes are present throughout the lungs. No pleural effusion.. No pulmonary nodule or mass can be identified. The bony thorax is unremarkable in its appearance.IMPRESSIONLarge right pneumothorax.Marked emphysematous changes throughout the lungs.COMMUNICATIONS: These findings were discussed with Dr. Farmer of the emergency Department at 12:21 a.m. 01/25/2021 by Radiology call service support representative.Electronically signed by: Thor Cowan (Jan 25, 2021 00:22:40)
[2021-01-25] MEDS ORDERED: STERILE WATER IRRIGATION IR ONE ×2 (00:39→00:43)
[2021-01-25] MEDS ORDERED: XYLOCAINE 1 % (PLAIN) ONE ×2 (01:09→19:37)
[2021-01-25] MEDS ORDERED: MORPHINE SULFATE INJ 2 MG INJ ONE (01:16)
[2021-01-25] MEDS ORDERED: XYLOCAINE 1 % (PLAIN) IJ ONE (01:33)
[2021-01-25] MEDS ORDERED: MORPHINE SULFATE INJ 2 MG INJ IVP ONE (01:34)
[2021-01-25] MEDS ORDERED: ANCEF VIAL 1 GRAM IVP ONE (01:36)
[2021-01-25] MEDS ORDERED: ANCEF VIAL 1 GRAM ONE (01:37)
--- NOTE | 2021-01-25 02:22 | RAD ---
HISTORYCHEST TUBE PLACEMENT PMH: ASTHMA, COPD, HTNSTUDYCHEST, 1 VIEWCOMPARISONCT chest 01/24/2021FINDINGSThe trachea is midline. Right chest tube is present. There has been near complete re-expansion of the right lung. There is a trace residual right pneumothorax. The left lung is clear. The cardiac silhouette is unremarkable. . The bony thorax is unremarkable.IMPRESSIONTiny residual right pneumothorax following right chest tube insertion.COPD..Electronically signed by: Thor Cowan (Jan 25, 2021 02:20:37)
[2021-01-25] MEDS ORDERED: ZOFRAN TAB 4 MG PO PRN (02:45)
[2021-01-25] MEDS ORDERED: MORPHINE SULFATE INJ 4 MG IVP PRN (02:45)
[2021-01-25] MEDS ORDERED: NS 1,000 ML IV 1,000 ML ONE (02:51)
[2021-01-25] MEDS ORDERED: ROCEPHIN 1 GRAM IV PREMIX 1 G/50 ML IV.SOLN. IV ONE (02:52)
[2021-01-25] MEDS: NS 1,000 ML IV 1,000 ML IV SCH ×2 (02:59→16:18)
[2021-01-25] MEDS ORDERED: ROCEPHIN 1 GRAM IV PREMIX 1 G/50 ML IV.SOLN. IV SCH (03:00)
[2021-01-25] MEDS ORDERED: MORPHINE SULFATE INJ 4 MG ONE (03:02)
[2021-01-25 04:44] LABS: BILIRUBIN,URINE NEGATIVE (NEGATIVE); BLOOD/HEMOGLOBIN,URINE NEGATIVE (NEGATIVE); GLUCOSE, URINE NEGATIVE (NEGATIVE); KETONES,URINE NEGATIVE (NEGATIVE); LEUKOCYTE ESTERASE ,URINE NEGATIVE (NEGATIVE); NITRITES,URINE NEGATIVE (NEGATIVE); PROTEIN,URINE 2+ (NEGATIVE); UROBILINOGEN,URINE NORMAL (NORMAL)
[2021-01-25 04:55] LABS: BASOPHILS # (AUTO) 0.1 X10^3/uL (0.0-0.1); BASOPHILS % (AUTO) 1.1 % (0.2-1.0); EOSINOPHILS # (AUTO) 0.1 x10^3/uL (0.0-0.2); EOSINOPHILS % (AUTO) 0.7 % (0.9-2.9); HEMATOCRIT 38.8 % (36.0-47.0); LYMPHOCYTES # (AUTO) 0.2 X10^3/uL (1.3-2.9); LYMPHOCYTES % (AUTO) 2.5 % (21.0-51.0); MEAN CORPUSCULAR HEMOGLOBIN 27.8 pg (27.0-34.0); MEAN CORPUSCULAR HGB CONC 33.6 g/dL (33.0-35.0); MEAN CORPUSCULAR VOLUME 82.8 fL (80.0-100.0); MEAN PLATELET VOLUME 7.8 fL (7.4-11.0); MONOCYTES # (AUTO) 0 x10^3/uL (0.3-0.8); MONOCYTES % (AUTO) 0.5 % (0.0-13.0); NEUTROPHILS # (AUTO) 7.2 x10^3/uL (2.2-4.8); NEUTROPHILS % (AUTO) 95.2 % (42.0-75.0); PLATELET COUNT 262 X10^3/uL (150.0-450.0); RED BLOOD COUNT 4.68 X10^6/uL (3.5-5.4); RED CELL DISTRIBUTION WIDTH 14.1 % (11.6-16.5); WHITE BLOOD COUNT 7.6 X10^3/uL (3.6-10.0)
[2021-01-25 04:57] LABS: APPEARANCE,URINE CLEAR (CLEAR); BACTERIA,URINE TRACE /HPF (NEGATIVE); COLOR,URINE YELLOW (YELLOW); RBC,URINE NONE SEEN /HPF (0-3); SQUAMOUS EPITHELIAL CELL,UR NEGATIVE /HPF (NEGATIVE)
[2021-01-25 05:37] LABS: ALANINE AMINOTRANSFERASE 29 Units/L (12-78); ALBUMIN 3.7 g/dL (3.4-5.0); ALKALINE PHOSPHATASE 96 Units/L (46-116); ASPARTATE AMINO TRANSFERASE 31 Units/L (15-37); BLOOD UREA NITROGEN 20 mg/dL (7-18); CALCIUM 8.8 mg/dL (8.5-10.1); CARBON DIOXIDE 26.9 mmol/L (21-32); CHLORIDE 100 mmol/L (98-107); CKMB % 7.4 % (<4); COR NA(FOR HYPERGLY) 139 mmol/L (136-145); CREATINE KINASE 277 Units/L (26-192); CREATININE 1.32 mg/dL (0.55-1.02); SODIUM 138 mmol/L (136-145); TOTAL PROTEIN 6.6 g/dL (6.4-8.2); eGFR NON BLACK RACES 42 (>60)
[2021-01-25 05:43] LABS: CREATINE KINASE MB 20.4 ng/mL (0-4.0); TROPONIN I 1.57 ng/mL (0-1.5)
[2021-01-25 05:44] LABS: PLATELET MORPHOLOGY COMMENT NORMAL (NORMAL)
[2021-01-25] MEDS: DUONEB 0.5 MG/3 MG (3 mL) NEB SCH ×5 (05:51→21:00)
[2021-01-25 08:40] LABS: CKMB % 6.8 % (<4)
[2021-01-25 08:43] LABS: CREATINE KINASE MB 21.6 ng/mL (0-4.0)
[2021-01-25 08:44] LABS: TROPONIN I 2.33 ng/mL (0-1.5)
[2021-01-25] MEDS: PULMICORT NEB TX 0.5 MG NEB SCH ×2 (08:44→21:00)
[2021-01-25] MEDS: SINGULAIR TAB 10 MG PO SCH (09:20)
[2021-01-25] MEDS: NORVASC TAB 10 MG PO SCH (09:20)
[2021-01-25] MEDS: SOLU-Medrol 125 MG VIAL IVP SCH ×2 (09:20→16:18)
[2021-01-25] MEDS: LOVENOX INJ 40 MG SYR SC SCH (09:20)
[2021-01-25] MEDS: SYNTHROID 50 mcg TAB PO SCH (09:21)
[2021-01-25] MEDS: PEPCID 20 MG IV PREMIX* 50 ML IV SCH (12:40)
[2021-01-25] MEDS: NEURONTIN CAP 300 MG PO SCH ×2 (14:44→21:40)
[2021-01-25 15:56] LABS: CKMB % 5.9 % (<4)
[2021-01-25 16:00] LABS: CREATINE KINASE MB 20.2 ng/mL (0-4.0); TROPONIN I 2.36 ng/mL (0-1.5)
--- NOTE | 2021-01-25 16:14 | DR.H&P ---
H&P History & Physical for Day of: H&P Date: 01/25/21 Chief Complaint Chief Complaint: worsening SOB Allergies Allergies Allergy/AdvReac Type Severity Reaction Status Date / Time No Known Drug Allergies Allergy Verified 03/21/19 09:43 History of Present Illness History of Present Illness: Ms Chatterjee is a 70y/o female with a PMH of severe COPD/emphysema and HTN presented with worsening dyspnea. She reports being sick with cough and congestion since past week. She was treated with antibiotics and steroids. Patient has very decreased hearing and is a poor historian. No family present at bedside during rounds. She states she was referred to Pulmonary due to emphysema and had CXR done. She states she was having chest pain and could not breathe so came to the ER. On admission, CT showed large right pneumothorax with severe emphysema. Patient was placed on 2L supplemental O2. Dr Cui was consulted and chest tube was placed. Patient is currently feeling a lot better, remains on 2L with chest tube intact. Repeat CXR did show significant improvement in the pneumothorax. She denies any chest pain or tightness. She does report pain around the chest tube insertion site. She denies hx of CAD or PCI, has stress test rao last mar with no abnormal findings. Labs: slight elevation of troponin on admission, 0.16 - 1.57 - 2.33, no acute ST changes on EKG. Patient denies chest pain or pressure. Imaging reviewed Plan: continue chest tube as per surgery recommendations. Trend cardiac enzymes and EKG. Repeat CXR in the AM. Resume home medications. Continue IV Rocephin and change solumedrol to 60 mg q8H. Continue nebs and pulmicort. Wean O2 as tolerated. Continue hydration. Monitor AM labs and imaging. Time spent for clinical assessment, reviewing labs/imaging, physical exam, decision making and documentation greater than 45 mins. 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 Family History Family Medical History: Coronary Artery Disease and Hypertension Social History Does patient currently use any type of tobacco product: No Have you used tobacco products in the last 12 months: No Type of Tobacco Use: None How many years tobacco product used: 15 Does any household member use tobacco: Yes Alcohol Use: None Drug Use: None Prescription drug monitoring program results: PDMP reviewed and no concerns identified Medications Home Medications: No Known Drug Allergies Allergy (Verified 03/21/19 09:43) CONTINUE taking the following medications amlodipine 10 mg PO DAILY 01/24/21 [History] Labs Result Diagrams: 01/25/21 04:32 01/25/21 04:32 Labs: Laboratory WBC 7.6 X10^3/uL (3.6-10.0) 01/25/21 04:32 RBC 4.68 X10^6/uL (3.5-5.4) 01/25/21 04:32 Hgb 13.0 g/dL (12.0-16.0) 01/25/21 04:32 Hct 38.8 % (36.0-47.0) 01/25/21 04:32 MCV 82.8 fL (80.0-100.0) 01/25/21 04:32 MCH 27.8 pg (27.0-34.0) 01/25/21 04:32 MCHC 33.6 g/dL (33.0-35.0) 01/25/21 04:32 RDW 14.1 % (11.6-16.5) 01/25/21 04:32 Plt Count 262 X10^3/uL (150.0-450.0) 01/25/21 04:32 Plt Count Comment Adequate (ADEQUATE) 01/25/21 04:32 MPV 7.8 fL (7.4-11.0) 01/25/21 04:32 Neut % (Auto) 95.2 % (42.0-75.0) H 01/25/21 04:32 Lymph % (Auto) 2.5 % (21.0-51.0) L 01/25/21 04:32 [place] % (Auto) 0.5 % (0.0-13.0) 01/25/21 04:32 Eos % (Auto) 0.7 % (0.9-2.9) L 01/25/21 04:32 Baso % (Auto) 1.1 % (0.2-1.0) H 01/25/21 04:32 Neut # (Auto) 7.2 x10^3/uL (2.2-4.8) H 01/25/21 04:32 Lymph # (Auto) 0.2 X10^3/uL (1.3-2.9) L 01/25/21 04:32 [place] # (Auto) 0 x10^3/uL (0.3-0.8) L 01/25/21 04:32 Eos # (Auto) 0.1 x10^3/uL (0.0-0.2) 01/25/21 04:32 Baso # (Auto) 0.1 X10^3/uL (0.0-0.1) 01/25/21 04:32 Absolute Nucleated RBC 0.0 /100WBC 01/25/21 04:32 Total Counted 100 01/25/21 04:32 Neutrophils % (Manual) 93 % (39-76) H 01/25/21 04:32 Lymphocytes % (Manual) 6 % (13-43) L 01/25/21 04:32 Monocytes % (Manual) 1 % (4-9) L 01/25/21 04:32 Plt Morphology Comment Normal (NORMAL) 01/25/21 04:32 RBC Morphology Normal (NORMAL) 01/25/21 04:32 Sample Site Rrad 01/24/21 23:10 ABG pH 7.330 (7.35-7.45) L 01/24/21 23:10 ABG pCO2 50.0 mmHg (35.0-45.0) H 01/24/21 23:10 ABG pO2 54.0 mmHg (80.0-100.0) L 01/24/21 23:10 ABG HCO3 26.4 mmol/L (22-26) H 01/24/21 23:10 ABG O2 Saturation 85.0 % (90-100) L 01/24/21 23:10 ABG Base Excess -0.1 mmol/L (-2.0-2.0) 01/24/21 23:10 Jose Miguel Test Pos 01/24/21 23:10 A-a Gradient 140.0 mmHg 01/24/21 23:10 FiO2 36.0 01/24/21 23:10 Blood Gas Comments Ramana abg well-mtf 01/24/21 23:10 Sodium 138 mmol/L (136-145) 01/25/21 04:32 Corrected Sodium 139 mmol/L (136-145) 01/25/21 04:32 Potassium 4.0 mmol/L (3.5-5.1) 01/25/21 04:32 Chloride 100 mmol/L (98-107) 01/25/21 04:32 Carbon Dioxide 26.9 mmol/L (21-32) 01/25/21 04:32 BUN 20 mg/dL (7-18) H 01/25/21 04:32 Creatinine 1.32 mg/dL (0.55-1.02) H 01/25/21 04:32 Est GFR (MDRD) Af Amer 51 (>60) L 01/25/21 04:32 Est GFR (MDRD) Non-Af 42 (>60) L 01/25/21 04:32 Glucose 143 mg/dL (65-99) H 01/25/21 04:32 Calcium 8.8 mg/dL (8.5-10.1) 01/25/21 04:32 Corrected Calcium TNP 01/25/21 04:32 Total Bilirubin 0.30 mg/dL (0.2-1.0) 01/25/21 04:32 AST 31 Units/L (15-37) 01/25/21 04:32 ALT 29 Units/L (12-78) 01/25/21 04:32 Alkaline Phosphatase 96 Units/L (46-116) 01/25/21 04:32 Creatine Kinase 345 Units/L (26-192) H 01/25/21 14:15 CK-MB (CK-2) 20.2 ng/mL (0-4.0) H* 01/25/21 14:15 CK/CKMB % Calc 5.9 % (<4) 01/25/21 14:15 Troponin I 2.36 ng/mL (0-1.5) H* 01/25/21 14:15 Total Protein 6.6 g/dL (6.4-8.2) 01/25/21 04:32 Albumin 3.7 g/dL (3.4-5.0) 01/25/21 04:32 Globulin 2.9 g/dL (2.5-4.5) 01/25/21 04:32 Albumin/Globulin Ratio 1.3 Ratio (1.1-2.1) 01/25/21 04:32 Specimen Type Catherized urine 01/25/21 03:35 Urine Color Yellow (YELLOW) 01/25/21 03:35 Urine Appearance Clear (CLEAR) 01/25/21 03:35 Urine pH 6.0 (5.0 - 8.0) 01/25/21 03:35 Ur Specific [place] 1.015 (1.000-1.030) 01/25/21 03:35 Urine Protein 2+ (NEGATIVE) 01/25/21 03:35 Urine Glucose (UA) Negative (NEGATIVE) 01/25/21 03:35 Urine Ketones Negative (NEGATIVE) 01/25/21 03:35 Urine Occult Blood Negative (NEGATIVE) 01/25/21 03:35 Urine Nitrite Negative (NEGATIVE) 01/25/21 03:35 Urine Bilirubin Negative (NEGATIVE) 01/25/21 03:35 Urine Urobilinogen Normal (NORMAL) 01/25/21 03:35 Ur Leukocyte Esterase Negative (NEGATIVE) 01/25/21 03:35 Urine RBC None seen /HPF (0-3) 01/25/21 03:35 Urine WBC None seen /HPF (0-5) 01/25/21 03:35 Ur Squamous Epith Cells Negative /HPF (NEGATIVE) 01/25/21 03:35 Urine Bacteria Trace /HPF (NEGATIVE) 01/25/21 03:35 Ur Culture Indicated? No/not indicated 01/25/21 03:35 SARS-CoV-2 (PCR) Negative (NEGATIVE) 01/25/21 00:33 Influenza Type A (PCR) Negative (NEGATIVE) 01/25/21 00:33 Influenza Type B (PCR) Negative (NEGATIVE) 01/25/21 00:33 RSV (PCR) Negative (NEGATIVE) 01/25/21 00:33 Review of Systems Constitutional: Weakness and Malaise ENT: No Symptoms Reported Respiratory: Shortness of Breath, SOB with Excertion and Wheezing Cardiovascular: Chest Pain Gastrointestinal: No Symptoms Reported Genitourinary: No Symptoms Reported Musculoskeletal: No Symptoms Reported Skin: No Symptoms Reported Neurological: No Symptoms Reported Physical Exam Vital Signs: Temperature 98.1 F Pulse Rate [Radial] 76 Pulse Rate 83 Respiratory Rate 23 Blood Pressure [Left Arm] 114/59 Blood Pressure [Right Arm] 158/92 Blood Pressure 112/60 O2 Sat by Pulse Oximetry 93 Oriented: Normal Eyes: Normal Throat: Normal Respiratory: Wheezes Throughout Cardiovascular: Normal Auscultation: Bowel Sounds: Normal Palpation: Normal Tenderness: Normal Musculoskeletal: Normal Psychiatric: Normal Mood Description: Calm Affect: Normal Speech Pattern: Clear and Appropriate Assessment/Plan (1) Chest tube in place: Status: Acute (2) Pneumothorax, right: Status: Acute (3) COPD exacerbation: Status: Acute (4) Weakness: Status: Acute (5) Acute renal injury: Status: Acute Review H&P Reviewed: Yes Patient was examined?: Yes
[2021-01-25] MEDS ORDERED: BENADRYL INJ 50 MG VIAL IVP ONE ×2 (16:30→16:34)
[2021-01-25] MEDS ORDERED: BENADRYL INJ 50 MG VIAL ONE (16:35)
--- NOTE | 2021-01-25 17:33 | RAD ---
EXAM: CHEST X-RAYHISTORY: Chest tube placement verification.TECHNIQUE: AP CXR dated January 25, 2021 at 5:51 PM.COMPARISON: CXR dated January 25, 2021 at 1:36 AM.FINDINGS:A right-sided chest tube is again noted in situ with the distal tip superimposed on the right hilum (stable appearance). No residual pneumothorax is seen. There is interval appearance of extensive right sided chest wall and bilateral soft tissue neck emphysema in keeping with air leak, presumably around chest tube.The heart size and mediastinum are within normal limits. There is interval appearance of right lower lobe lung parenchymal infiltrate. There is no gross pleural effusion seen. The visualized bony structures are within normal limits.IMPRESSION:1. A right-sided chest tube is again noted in situ with the distal tip superimposed on the right hilum (stable appearance).2. No discernible residual pneumothorax is seen.3. Interval appearance of extensive right sided chest wall and bilateral soft tissue neck emphysema in keeping with air leak, presumably around chest tube.4. Interval appearance of right lower lobe lung parenchymal infiltrate.5. Recommend clinical correlation and appropriate follow-up evaluation to assess interval change.Electronically signed by: Arlette Neves (Jan 25, 2021 17:32:14)
[2021-01-25] MEDS ORDERED: SOLU-Medrol 125 MG VIAL IVP SCH (18:00)
--- NOTE | 2021-01-25 20:52 | RAD ---
EXAM: CHEST X-RAYHISTORY: Status post adjustment of chest tube.TECHNIQUE: AP CXR dated January 25, 2021 at 7:34 PM.COMPARISON: CXR dated January 25, 2021 at 5:51 PM.FINDINGS:A partially retracted chest tube is now seen with the distal tip in the right inferior hemithorax (superimposed on the right infrahilar region).There is significant interval progression of diffuse bilateral chest wall lung parenchymal emphysema and soft tissue neck emphysema. There is interval development of extensive pneumomediastinum; nonspecific finding which may represent sequela of a perforated viscus (such as the esophagus or trachea), but cannot rule out infectious process with gas producing organism in the appropriate clinical setting. Clinical correlation is advised. The heart size and mediastinum are otherwise within normal limits. The visualized bony structures are within normal limits.There is interval development of mild diffuse bilateral bronchopulmonary infiltrates, most prominent in the lower lung [place], right greater than left; DDX includes mild noncardiogenic pulmonary congestion, bronchitis, and mild acute pneumonia in the appropriate clinical setting. Clinical correlation is advised.No focal lung consolidation/mass, pleural effusion, or pneumothorax is seen.IMPRESSION:1. A partially retracted chest tube is now seen with the distal tip in the right inferior hemithorax (superimposed on the right infrahilar region).2. Significant interval progression of diffuse bilateral chest wall lung parenchymal emphysema and soft tissue neck emphysema.3. Interval development of extensive pneumomediastinum; nonspecific finding which may represent sequela of a perforated viscus (such as the esophagus or trachea), but cannot rule out infectious process with gas producing organism in the appropriate clinical setting. Clinical correlation is advised.4. Interval development of mild diffuse bilateral bronchopulmonary infiltrates, most prominent in the lower lung [place], right greater than left; DDX includes mild noncardiogenic pulmonary congestion, bronchitis, and mild acute pneumonia in the appropriate clinical setting. Clinical correlation is advised.5. Recommend clinical correlation and appropriate follow-up x-ray evaluation to ensure interval clearance as clinically warranted.6. Consider follow evaluation with noncontrast chest CT for further characterization as clinically warranted.Electronically signed by: Arlette Neves (Jan 25, 2021 20:50:20)
[2021-01-25 21:32] LABS: CKMB % 5.8 % (<4)
[2021-01-25 21:42] LABS: CREATINE KINASE MB 17.6 ng/mL (0-4.0); TROPONIN I 1.88 ng/mL (0-1.5)
[2021-01-26] MEDS: DUONEB 0.5 MG/3 MG (3 mL) NEB SCH ×6 (00:30→20:05)
[2021-01-26] MEDS: SOLU-Medrol 125 MG VIAL IVP SCH ×3 (02:48→17:16)
[2021-01-26 05:01] LABS: BASOPHILS % (AUTO) 0.2 % (0.2-1.0); HEMATOCRIT 36.3 % (36.0-47.0); HEMOGLOBIN 12.2 g/dL (12.0-16.0); LYMPHOCYTES # (AUTO) 0.5 X10^3/uL (1.3-2.9); LYMPHOCYTES % (AUTO) 5.5 % (21.0-51.0); MEAN CORPUSCULAR HEMOGLOBIN 27.9 pg (27.0-34.0); MEAN CORPUSCULAR HGB CONC 33.7 g/dL (33.0-35.0); MEAN CORPUSCULAR VOLUME 82.8 fL (80.0-100.0); MEAN PLATELET VOLUME 7.8 fL (7.4-11.0); MONOCYTES # (AUTO) 0.3 x10^3/uL (0.3-0.8); MONOCYTES % (AUTO) 3.2 % (0.0-13.0); NEUTROPHILS # (AUTO) 7.7 x10^3/uL (2.2-4.8); NEUTROPHILS % (AUTO) 91.1 % (42.0-75.0); PLATELET COUNT 258 X10^3/uL (150.0-450.0); RED BLOOD COUNT 4.38 X10^6/uL (3.5-5.4); RED CELL DISTRIBUTION WIDTH 14.4 % (11.6-16.5); WHITE BLOOD COUNT 8.5 X10^3/uL (3.6-10.0)
[2021-01-26 05:14] LABS: ALANINE AMINOTRANSFERASE 26 Units/L (12-78); ALKALINE PHOSPHATASE 76 Units/L (46-116); ASPARTATE AMINO TRANSFERASE 31 Units/L (15-37); BLOOD UREA NITROGEN 18 mg/dL (7-18); CALCIUM 8.2 mg/dL (8.5-10.1); CARBON DIOXIDE 27.7 mmol/L (21-32); CHLORIDE 108 mmol/L (98-107); COR NA(FOR HYPERGLY) 143 mmol/L (136-145); CREATININE 0.94 mg/dL (0.55-1.02); SODIUM 142 mmol/L (136-145); TOTAL PROTEIN 5.5 g/dL (6.4-8.2); eGFR NON BLACK RACES > 60 (>60)
[2021-01-26 05:30] LABS: PLATELET MORPHOLOGY COMMENT NORMAL (NORMAL)
--- NOTE | 2021-01-26 06:10 | RAD ---
HISTORYF/U RT PNEUMOTHORAX PMH: ASTHMA, COPD, HTNSTUDYCHEST, 1 [id number]/2021FINDINGSThe trachea is midline. The cardiac silhouette is unremarkable. Right chest tube unchanged. Mild diffuse bilateral infiltrates primarily in the lower lung arred[place], unchanged. Extensive subcutaneous emphysema throughout the chest wall and neck. The bony thorax is unremarkable.IMPRESSIONStable portable chest.Electronically signed by: Thor Cowan (Jan 26, 2021 06:08:46)
[2021-01-26] MEDS: NS 1,000 ML IV 1,000 ML IV SCH (06:46)
[2021-01-26] MEDS: NEURONTIN CAP 300 MG PO SCH ×3 (06:47→21:33)
--- NOTE | 2021-01-26 07:47 | DR.PROGNOT ---
Hospital Progress Notes - Progress Note for Day of: Progress Note Date: 01/26/21 - Chief Complaint Chief Complaint: feeling better after adjusting chest tube . still having large SE .. no SOB . no chest pain . chest X ray showed expanded lung . PO2 , RR BP are stable . - Past Medical Family Social History Past Med/Fam/Surg Hx: No changes since H&P Allergies: Allergies No Known Drug Allergies Allergy (Verified 03/21/19 09:43) - Review Of Systems ROS: No change since H&P - Vital Signs Vital Signs: Temperature 98.1 F Pulse Rate [Radial] 76 Pulse Rate 74 Respiratory Rate 20 Blood Pressure [Left Arm] 114/59 Blood Pressure [Right Arm] 158/92 Blood Pressure 101/54 O2 Sat by Pulse Oximetry 97 - Physical Exam Oriented: Normal Eyes: Normal Throat: Normal Respiratory: Normal Cardiovascular: Normal GI:Auscultation: Normal GI:Palpation: Normal GI: Tenderness: Normal Skin: Other (large sub cutaneous emphysema extending to the neck and face . ) Musculoskeletal: Normal Psychiatric: Normal Mood Description: Calm Affect: Normal Speech Pattern: Clear - Laboratory and Diagnostics Result Diagrams: 01/26/21 04:24 01/26/21 04:24 Labs: Laboratory WBC 8.5 X10^3/uL (3.6-10.0) 01/26/21 04:24 RBC 4.38 X10^6/uL (3.5-5.4) 01/26/21 04:24 Hgb 12.2 g/dL (12.0-16.0) 01/26/21 04:24 Hct 36.3 % (36.0-47.0) 01/26/21 04:24 MCV 82.8 fL (80.0-100.0) 01/26/21 04:24 MCH 27.9 pg (27.0-34.0) 01/26/21 04:24 MCHC 33.7 g/dL (33.0-35.0) 01/26/21 04:24 RDW 14.4 % (11.6-16.5) 01/26/21 04:24 Plt Count 258 X10^3/uL (150.0-450.0) 01/26/21 04:24 Plt Count Comment Adequate (ADEQUATE) 01/26/21 04:24 MPV 7.8 fL (7.4-11.0) 01/26/21 04:24 Neut % (Auto) 91.1 % (42.0-75.0) H 01/26/21 04:24 Lymph % (Auto) 5.5 % (21.0-51.0) L 01/26/21 04:24 [place] % (Auto) 3.2 % (0.0-13.0) 01/26/21 04:24 Eos % (Auto) 0.0 % (0.9-2.9) L 01/26/21 04:24 Baso % (Auto) 0.2 % (0.2-1.0) 01/26/21 04:24 Neut # (Auto) 7.7 x10^3/uL (2.2-4.8) H 01/26/21 04:24 Lymph # (Auto) 0.5 X10^3/uL (1.3-2.9) L 01/26/21 04:24 [place] # (Auto) 0.3 x10^3/uL (0.3-0.8) 01/26/21 04:24 Eos # (Auto) 0.0 x10^3/uL (0.0-0.2) 01/26/21 04:24 Baso # (Auto) 0.0 X10^3/uL (0.0-0.1) 01/26/21 04:24 Absolute Nucleated RBC 0.0 /100WBC 01/26/21 04:24 Total Counted 100 01/26/21 04:24 Neutrophils % (Manual) 93 % (39-76) H 01/26/21 04:24 Lymphocytes % (Manual) 4 % (13-43) L 01/26/21 04:24 Monocytes % (Manual) 3 % (4-9) L 01/26/21 04:24 Plt Morphology Comment Normal (NORMAL) 01/26/21 04:24 RBC Morphology Normal (NORMAL) 01/26/21 04:24 Sample Site Rrad 01/24/21 23:10 ABG pH 7.330 (7.35-7.45) L 01/24/21 23:10 ABG pCO2 50.0 mmHg (35.0-45.0) H 01/24/21 23:10 ABG pO2 54.0 mmHg (80.0-100.0) L 01/24/21 23:10 ABG HCO3 26.4 mmol/L (22-26) H 01/24/21 23:10 ABG O2 Saturation 85.0 % (90-100) L 01/24/21 23:10 ABG Base Excess -0.1 mmol/L (-2.0-2.0) 01/24/21 23:10 Jose Miguel Test Pos 01/24/21 23:10 A-a Gradient 140.0 mmHg 01/24/21 23:10 FiO2 36.0 01/24/21 23:10 Blood Gas Comments Ramana abg well-mtf 01/24/21 23:10 Sodium 142 mmol/L (136-145) 01/26/21 04:24 Corrected Sodium 143 mmol/L (136-145) 01/26/21 04:24 Potassium 4.2 mmol/L (3.5-5.1) 01/26/21 04:24 Chloride 108 mmol/L (98-107) H 01/26/21 04:24 Carbon Dioxide 27.7 mmol/L (21-32) 01/26/21 04:24 BUN 18 mg/dL (7-18) 01/26/21 04:24 Creatinine 0.94 mg/dL (0.55-1.02) 01/26/21 04:24 Est GFR (MDRD) Af Amer > 60 (>60) 01/26/21 04:24 Est GFR (MDRD) Non-Af > 60 (>60) 01/26/21 04:24 Glucose 125 mg/dL (65-99) H 01/26/21 04:24 Calcium 8.2 mg/dL (8.5-10.1) L 01/26/21 04:24 Corrected Calcium 9.0 mg/dL (8.5-10.1) 01/26/21 04:24 Total Bilirubin 0.20 mg/dL (0.2-1.0) 01/26/21 04:24 AST 31 Units/L (15-37) 01/26/21 04:24 ALT 26 Units/L (12-78) 01/26/21 04:24 Alkaline Phosphatase 76 Units/L (46-116) 01/26/21 04:24 Creatine Kinase 305 Units/L (26-192) H 01/25/21 20:45 CK-MB (CK-2) 17.6 ng/mL (0-4.0) H* 01/25/21 20:45 CK/CKMB % Calc 5.8 % (<4) 01/25/21 20:45 Troponin I 1.88 ng/mL (0-1.5) H* 01/25/21 20:45 Total Protein 5.5 g/dL (6.4-8.2) L 01/26/21 04:24 Albumin 3.0 g/dL (3.4-5.0) L 01/26/21 04:24 Globulin 2.5 g/dL (2.5-4.5) 01/26/21 04:24 Albumin/Globulin Ratio 1.2 Ratio (1.1-2.1) 01/26/21 04:24 Specimen Type Catherized urine 01/25/21 03:35 Urine Color Yellow (YELLOW) 01/25/21 03:35 Urine Appearance Clear (CLEAR) 01/25/21 03:35 Urine pH 6.0 (5.0 - 8.0) 01/25/21 03:35 Ur Specific [place] 1.015 (1.000-1.030) 01/25/21 03:35 Urine Protein 2+ (NEGATIVE) 01/25/21 03:35 Urine Glucose (UA) Negative (NEGATIVE) 01/25/21 03:35 Urine Ketones Negative (NEGATIVE) 01/25/21 03:35 Urine Occult Blood Negative (NEGATIVE) 01/25/21 03:35 Urine Nitrite Negative (NEGATIVE) 01/25/21 03:35 Urine Bilirubin Negative (NEGATIVE) 01/25/21 03:35 Urine Urobilinogen Normal (NORMAL) 01/25/21 03:35 Ur Leukocyte Esterase Negative (NEGATIVE) 01/25/21 03:35 Urine RBC None seen /HPF (0-3) 01/25/21 03:35 Urine WBC None seen /HPF (0-5) 01/25/21 03:35 Ur Squamous Epith Cells Negative /HPF (NEGATIVE) 01/25/21 03:35 Urine Bacteria Trace /HPF (NEGATIVE) 01/25/21 03:35 Ur Culture Indicated? No/not indicated 01/25/21 03:35 SARS-CoV-2 (PCR) Negative (NEGATIVE) 01/25/21 00:33 Influenza Type A (PCR) Negative (NEGATIVE) 01/25/21 00:33 Influenza Type B (PCR) Negative (NEGATIVE) 01/25/21 00:33 RSV (PCR) Negative (NEGATIVE) 01/25/21 00:33 - Assessment and Plan 1: large RT pneumothorax . corrected with chest tube . slowly resolving SE . COPD with multiple blebs and emphysematous changes . same chest tube care . advance diet . - Problem Patient Problems: Patient Problems Pneumothorax, right (Acute) J93.9 COPD exacerbation (Acute) J44.[address] (Acute) Z96.89
[2021-01-26] MEDS: PULMICORT NEB TX 0.5 MG NEB SCH ×2 (08:25→20:05)
[2021-01-26] MEDS ORDERED: PHARMACY CONSULT - VANCOMYCIN XX SCH (09:00)
[2021-01-26] MEDS: ZOSYN VIAL 3.375 GRAMS 3.375 G in NS 100 ML IV + SPIKE MINIBAG* 100 ML IV SCH ×4 (09:26→21:33)
[2021-01-26] MEDS: LOVENOX INJ 40 MG SYR SC SCH (09:26)
[2021-01-26] MEDS: NORVASC TAB 10 MG PO SCH (09:27)
[2021-01-26] MEDS: SINGULAIR TAB 10 MG PO SCH (09:27)
[2021-01-26] MEDS: SYNTHROID 50 mcg TAB PO SCH (09:28)
[2021-01-26] MEDS: VANCOMYCIN IV *PREMIX 1 G/200 ML BAG 1 G/200 ML PIGGYBACK IV SCH ×2 (09:28→20:30)
[2021-01-26] MEDS: PEPCID 20 MG IV PREMIX* 50 ML IV SCH (09:34)
[2021-01-26] MEDS: LACRI-LUBE S.O.P. AFFEYE SCH ×2 (12:26→20:30)
--- NOTE | 2021-01-26 16:53 | PCM.PROG ---
Progress Note Progress Note for Day of Date of Exam: 01/26/21 Subjective Subjective: Patient seen at bedside. Yesterday evening, patient started having neck swelling and felt like her tongue was swelling. Patient denies any allergies. Her vitals were stable and she was not in any distress. Initially, she was given her scheduled solumedrol dose and benadryl due to a possible allergic reaction. Patient's swelling continued to worsen with increase on the right side of her neck and chest area also her eyes. Dr Cui was contacted and ordered stat CXR. He came to see the patient and chest tube placement was adjusted. She is stable this morning with no distress. She remains on 2L NC. She states the swelling and tightness is better today. She was able to eat breakfast. She still cannot open her right eye properly but left eye is better. CXR did show worsening pneumonia. Labs reviewed Plan: chest tube management as per Dr Cui, CXR for AM. Continue current diet. Will DC Rocephin and start Vanc/Zosyn to broaden coverage. Continue current meds. Wean O2 as tolerated. Continue solumedrol and nebs. Monitor AM labs/imaging. Time spent for clinical assessment, reviewing labs/imaging, physical exam, decision making and documentation greater than 45 mins. Past Medical Family Social History Past Med/Fam/Surg Hx: No changes since H&P Allergies: Allergies No Known Drug Allergies Allergy (Verified 03/21/19 09:43) Review of Systems ROS: No change since H&P Vital Signs and I&O's Vital Signs: Temperature 98.1 F Pulse Rate [Radial] 76 Pulse Rate 91 Respiratory Rate 53 Blood Pressure [Left Arm] 114/59 Blood Pressure [Right Arm] 158/92 Blood Pressure 126/84 O2 Sat by Pulse Oximetry 94 Intake and Output: Intake & Output 01/23/21 01/24/21 01/25/21 01/26/21 23:59 23:59 23:59 23:59 Intake Total 1838 / 1838 2281 / 2281 Output Total 1800 / 1800 1909 / 191 Balance 38 / 38 371 / 371 Physical Exam Oriented: Normal Eyes: Other (swollen, R>L) Throat: Normal Respiratory: Generalized, Diminished and OTHER (subcutanous emphysema on the right chest area ) Cardiovascular: Normal Auscultation: Bowel Sounds: Normal Tenderness: Normal Skin: Other (large sub cutaneous emphysema extending to the neck and face . ) Musculoskeletal: Normal Psychiatric: Normal Mood Description: Calm Affect: Normal Speech Pattern: Clear Laboratory and Diagnostics Result Diagrams: 01/26/21 04:24 01/26/21 04:24 Labs: Laboratory WBC 8.5 X10^3/uL (3.6-10.0) 01/26/21 04:24 RBC 4.38 X10^6/uL (3.5-5.4) 01/26/21 04:24 Hgb 12.2 g/dL (12.0-16.0) 01/26/21 04:24 Hct 36.3 % (36.0-47.0) 01/26/21 04:24 MCV 82.8 fL (80.0-100.0) 01/26/21 04:24 MCH 27.9 pg (27.0-34.0) 01/26/21 04:24 MCHC 33.7 g/dL (33.0-35.0) 01/26/21 04:24 RDW 14.4 % (11.6-16.5) 01/26/21 04:24 Plt Count 258 X10^3/uL (150.0-450.0) 01/26/21 04:24 Plt Count Comment Adequate (ADEQUATE) 01/26/21 04:24 MPV 7.8 fL (7.4-11.0) 01/26/21 04:24 Neut % (Auto) 91.1 % (42.0-75.0) H 01/26/21 04:24 Lymph % (Auto) 5.5 % (21.0-51.0) L 01/26/21 04:24 [place] % (Auto) 3.2 % (0.0-13.0) 01/26/21 04:24 Eos % (Auto) 0.0 % (0.9-2.9) L 01/26/21 04:24 Baso % (Auto) 0.2 % (0.2-1.0) 01/26/21 04:24 Neut # (Auto) 7.7 x10^3/uL (2.2-4.8) H 01/26/21 04:24 Lymph # (Auto) 0.5 X10^3/uL (1.3-2.9) L 01/26/21 04:24 [place] # (Auto) 0.3 x10^3/uL (0.3-0.8) 01/26/21 04:24 Eos # (Auto) 0.0 x10^3/uL (0.0-0.2) 01/26/21 04:24 Baso # (Auto) 0.0 X10^3/uL (0.0-0.1) 01/26/21 04:24 Absolute Nucleated RBC 0.0 /100WBC 01/26/21 04:24 Total Counted 100 01/26/21 04:24 Neutrophils % (Manual) 93 % (39-76) H 01/26/21 04:24 Lymphocytes % (Manual) 4 % (13-43) L 01/26/21 04:24 Monocytes % (Manual) 3 % (4-9) L 01/26/21 04:24 Plt Morphology Comment Normal (NORMAL) 01/26/21 04:24 RBC Morphology Normal (NORMAL) 01/26/21 04:24 Sample Site Rrad 01/24/21 23:10 ABG pH 7.330 (7.35-7.45) L 01/24/21 23:10 ABG pCO2 50.0 mmHg (35.0-45.0) H 01/24/21 23:10 ABG pO2 54.0 mmHg (80.0-100.0) L 01/24/21 23:10 ABG HCO3 26.4 mmol/L (22-26) H 01/24/21 23:10 ABG O2 Saturation 85.0 % (90-100) L 01/24/21 23:10 ABG Base Excess -0.1 mmol/L (-2.0-2.0) 01/24/21 23:10 Jose Miguel Test Pos 01/24/21 23:10 A-a Gradient 140.0 mmHg 01/24/21 23:10 FiO2 36.0 01/24/21 23:10 Blood Gas Comments Ramana abg well-mtf 01/24/21 23:10 Sodium 142 mmol/L (136-145) 01/26/21 04:24 Corrected Sodium 143 mmol/L (136-145) 01/26/21 04:24 Potassium 4.2 mmol/L (3.5-5.1) 01/26/21 04:24 Chloride 108 mmol/L (98-107) H 01/26/21 04:24 Carbon Dioxide 27.7 mmol/L (21-32) 01/26/21 04:24 BUN 18 mg/dL (7-18) 01/26/21 04:24 Creatinine 0.94 mg/dL (0.55-1.02) 01/26/21 04:24 Est GFR (MDRD) Af Amer > 60 (>60) 01/26/21 04:24 Est GFR (MDRD) Non-Af > 60 (>60) 01/26/21 04:24 Glucose 125 mg/dL (65-99) H 01/26/21 04:24 Calcium 8.2 mg/dL (8.5-10.1) L 01/26/21 04:24 Corrected Calcium 9.0 mg/dL (8.5-10.1) 01/26/21 04:24 Total Bilirubin 0.20 mg/dL (0.2-1.0) 01/26/21 04:24 AST 31 Units/L (15-37) 01/26/21 04:24 ALT 26 Units/L (12-78) 01/26/21 04:24 Alkaline Phosphatase 76 Units/L (46-116) 01/26/21 04:24 Creatine Kinase 305 Units/L (26-192) H 01/25/21 20:45 CK-MB (CK-2) 17.6 ng/mL (0-4.0) H* 01/25/21 20:45 CK/CKMB % Calc 5.8 % (<4) 01/25/21 20:45 Troponin I 1.88 ng/mL (0-1.5) H* 01/25/21 20:45 Total Protein 5.5 g/dL (6.4-8.2) L 01/26/21 04:24 Albumin 3.0 g/dL (3.4-5.0) L 01/26/21 04:24 Globulin 2.5 g/dL (2.5-4.5) 01/26/21 04:24 Albumin/Globulin Ratio 1.2 Ratio (1.1-2.1) 01/26/21 04:24 Specimen Type Catherized urine 01/25/21 03:35 Urine Color Yellow (YELLOW) 01/25/21 03:35 Urine Appearance Clear (CLEAR) 01/25/21 03:35 Urine pH 6.0 (5.0 - 8.0) 01/25/21 03:35 Ur Specific [place] 1.015 (1.000-1.030) 01/25/21 03:35 Urine Protein 2+ (NEGATIVE) 01/25/21 03:35 Urine Glucose (UA) Negative (NEGATIVE) 01/25/21 03:35 Urine Ketones Negative (NEGATIVE) 01/25/21 03:35 Urine Occult Blood Negative (NEGATIVE) 01/25/21 03:35 Urine Nitrite Negative (NEGATIVE) 01/25/21 03:35 Urine Bilirubin Negative (NEGATIVE) 01/25/21 03:35 Urine Urobilinogen Normal (NORMAL) 01/25/21 03:35 Ur Leukocyte Esterase Negative (NEGATIVE) 01/25/21 03:35 Urine RBC None seen /HPF (0-3) 01/25/21 03:35 Urine WBC None seen /HPF (0-5) 01/25/21 03:35 Ur Squamous Epith Cells Negative /HPF (NEGATIVE) 01/25/21 03:35 Urine Bacteria Trace /HPF (NEGATIVE) 01/25/21 03:35 Ur Culture Indicated? No/not indicated 01/25/21 03:35 SARS-CoV-2 (PCR) Negative (NEGATIVE) 01/25/21 00:33 Influenza Type A (PCR) Negative (NEGATIVE) 01/25/21 00:33 Influenza Type B (PCR) Negative (NEGATIVE) 01/25/21 00:33 RSV (PCR) Negative (NEGATIVE) 01/25/21 00:33 Plan (1) Subcutaneous emphysema: Status: Acute Qualifiers: Encounter type: initial encounter Qualified Code(s): T79.7XXA - Traumatic subcutaneous emphysema, initial encounter (2) Chest tube in place: Status: Acute (3) Pneumothorax, right: Status: Acute (4) COPD exacerbation: Status: Acute (5) Weakness: Status: Acute (6) Acute renal injury: Status: Acute
[2021-01-27] MEDS: DUONEB 0.5 MG/3 MG (3 mL) NEB SCH ×6 (00:06→20:43)
[2021-01-27] MEDS: SOLU-Medrol 125 MG VIAL IVP SCH ×3 (00:54→18:25)
[2021-01-27 05:35] LABS: BASOPHILS % (AUTO) 0.2 % (0.2-1.0); HEMATOCRIT 36.3 % (36.0-47.0); HEMOGLOBIN 12.2 g/dL (12.0-16.0); LYMPHOCYTES # (AUTO) 0.3 X10^3/uL (1.3-2.9); LYMPHOCYTES % (AUTO) 3.4 % (21.0-51.0); MEAN CORPUSCULAR HGB CONC 33.5 g/dL (33.0-35.0); MEAN CORPUSCULAR VOLUME 83.4 fL (80.0-100.0); MEAN PLATELET VOLUME 7.7 fL (7.4-11.0); MONOCYTES # (AUTO) 0.2 x10^3/uL (0.3-0.8); MONOCYTES % (AUTO) 2.2 % (0.0-13.0); NEUTROPHILS # (AUTO) 8.4 x10^3/uL (2.2-4.8); NEUTROPHILS % (AUTO) 94.2 % (42.0-75.0); PLATELET COUNT 273 X10^3/uL (150.0-450.0); RED BLOOD COUNT 4.36 X10^6/uL (3.5-5.4); RED CELL DISTRIBUTION WIDTH 14.5 % (11.6-16.5); WHITE BLOOD COUNT 8.9 X10^3/uL (3.6-10.0)
[2021-01-27] MEDS: NEURONTIN CAP 300 MG PO SCH ×3 (05:40→21:06)
[2021-01-27 05:43] LABS: ALANINE AMINOTRANSFERASE 24 Units/L (12-78); ALBUMIN 2.9 g/dL (3.4-5.0); ALKALINE PHOSPHATASE 70 Units/L (46-116); ASPARTATE AMINO TRANSFERASE 25 Units/L (15-37); BLOOD UREA NITROGEN 23 mg/dL (7-18); CALCIUM 8.2 mg/dL (8.5-10.1); CARBON DIOXIDE 26.3 mmol/L (21-32); CHLORIDE 110 mmol/L (98-107); COR CA(FOR HYPOALB) 9.1 mg/dL (8.5-10.1); COR NA(FOR HYPERGLY) 145 mmol/L (136-145); SODIUM 144 mmol/L (136-145); TOTAL PROTEIN 5.5 g/dL (6.4-8.2); eGFR NON BLACK RACES 52 (>60)
[2021-01-27] MEDS: ZOSYN VIAL 3.375 GRAMS 3.375 G in NS 100 ML IV + SPIKE MINIBAG* 100 ML IV SCH ×3 (05:45→21:58)
[2021-01-27 06:00] LABS: PLATELET MORPHOLOGY COMMENT NORMAL (NORMAL)
--- NOTE | 2021-01-27 06:22 | RAD ---
HISTORYF/U RT PNEUMOTHORAXSTUDYCHEST, 1 [id number]/01/2021.TECHNIQUEAP view of the chestFINDINGSCardiac and mediastinal contours are within normal limits. No significant change in bilateral airspace opacities which have a peripheral distribution. No discernible pleural effusion or pneumothorax. Right thoracostomy tube in stable position. Stable subcutaneous emphysema in the neck and chest with pneumomediastinum.IMPRESSIONNo significant change. No pneumothorax identified.Electronically signed by: Jose L Soto (Jan 27, 2021 06:20:33)
[2021-01-27] MEDS: NS 1,000 ML IV 1,000 ML IV SCH ×3 (06:24→19:00)
[2021-01-27] MEDS: LACRI-LUBE S.O.P. AFFEYE SCH ×2 (08:45→21:05)
[2021-01-27] MEDS: NORVASC TAB 10 MG PO SCH (08:45)
[2021-01-27] MEDS: LOVENOX INJ 40 MG SYR SC SCH (08:46)
[2021-01-27] MEDS: SINGULAIR TAB 10 MG PO SCH (08:46)
[2021-01-27] MEDS: SYNTHROID 50 mcg TAB PO SCH (08:46)
[2021-01-27] MEDS: VANCOMYCIN IV *PREMIX 1 G/200 ML BAG 1 G/200 ML PIGGYBACK IV SCH ×2 (08:47→23:17)
[2021-01-27] MEDS: PEPCID 20 MG IV PREMIX* 50 ML IV SCH (08:47)
--- NOTE | 2021-01-27 08:53 | DR.PROGNOT ---
Hospital Progress Notes - Progress Note for Day of: Progress Note Date: 01/27/21 - Chief Complaint Chief Complaint: no changes , no CP or SOB . chest Xray showed expanded RT lung. still having large SE .. PO2 , RR BP are stable . - Past Medical Family Social History Past Med/Fam/Surg Hx: No changes since H&P Allergies: Allergies No Known Drug Allergies Allergy (Verified 03/21/19 09:43) - Review Of Systems ROS: No change since H&P - Vital Signs Vital Signs: Temperature 98.0 F Pulse Rate [Radial] 76 Pulse Rate 101 Respiratory Rate 37 Blood Pressure [Left Arm] 114/59 Blood Pressure [Right Arm] 158/92 Blood Pressure 182/81 O2 Sat by Pulse Oximetry 93 - Physical Exam Oriented: Normal Eyes: Other (swollen, R>L) Throat: Normal Respiratory: Generalized, Diminished, OTHER (subcutanous emphysema on the right chest area) Cardiovascular: Normal GI:Auscultation: Normal GI:Palpation: Normal GI: Tenderness: Normal Skin: Other (large sub cutaneous emphysema extending to the neck and face .) Musculoskeletal: Normal Psychiatric: Normal Mood Description: Calm Affect: Normal Speech Pattern: Clear - Laboratory and Diagnostics Result Diagrams: 01/27/21 05:10 01/27/21 05:10 Labs: Laboratory WBC 8.9 X10^3/uL (3.6-10.0) 01/27/21 05:10 RBC 4.36 X10^6/uL (3.5-5.4) 01/27/21 05:10 Hgb 12.2 g/dL (12.0-16.0) 01/27/21 05:10 Hct 36.3 % (36.0-47.0) 01/27/21 05:10 MCV 83.4 fL (80.0-100.0) 01/27/21 05:10 MCH 28.0 pg (27.0-34.0) 01/27/21 05:10 MCHC 33.5 g/dL (33.0-35.0) 01/27/21 05:10 RDW 14.5 % (11.6-16.5) 01/27/21 05:10 Plt Count 273 X10^3/uL (150.0-450.0) 01/27/21 05:10 Plt Count Comment Adequate (ADEQUATE) 01/27/21 05:10 MPV 7.7 fL (7.4-11.0) 01/27/21 05:10 Neut % (Auto) 94.2 % (42.0-75.0) H 01/27/21 05:10 Lymph % (Auto) 3.4 % (21.0-51.0) L 01/27/21 05:10 [place] % (Auto) 2.2 % (0.0-13.0) 01/27/21 05:10 Eos % (Auto) 0.0 % (0.9-2.9) L 01/27/21 05:10 Baso % (Auto) 0.2 % (0.2-1.0) 01/27/21 05:10 Neut # (Auto) 8.4 x10^3/uL (2.2-4.8) H 01/27/21 05:10 Lymph # (Auto) 0.3 X10^3/uL (1.3-2.9) L 01/27/21 05:10 [place] # (Auto) 0.2 x10^3/uL (0.3-0.8) L 01/27/21 05:10 Eos # (Auto) 0.0 x10^3/uL (0.0-0.2) 01/27/21 05:10 Baso # (Auto) 0.0 X10^3/uL (0.0-0.1) 01/27/21 05:10 Absolute Nucleated RBC 0.0 /100WBC 01/27/21 05:10 Total Counted 100 01/27/21 05:10 Neutrophils % (Manual) 95 % (39-76) H 01/27/21 05:10 Lymphocytes % (Manual) 3 % (13-43) L 01/27/21 05:10 Monocytes % (Manual) 2 % (4-9) L 01/27/21 05:10 Plt Morphology Comment Normal (NORMAL) 01/27/21 05:10 RBC Morphology Normal (NORMAL) 01/27/21 05:10 Sample Site Rrad 01/24/21 23:10 ABG pH 7.330 (7.35-7.45) L 01/24/21 23:10 ABG pCO2 50.0 mmHg (35.0-45.0) H 01/24/21 23:10 ABG pO2 54.0 mmHg (80.0-100.0) L 01/24/21 23:10 ABG HCO3 26.4 mmol/L (22-26) H 01/24/21 23:10 ABG O2 Saturation 85.0 % (90-100) L 01/24/21 23:10 ABG Base Excess -0.1 mmol/L (-2.0-2.0) 01/24/21 23:10 Jose Miguel Test Pos 01/24/21 23:10 A-a Gradient 140.0 mmHg 01/24/21 23:10 FiO2 36.0 01/24/21 23:10 Blood Gas Comments Ramana abg well-mtf 01/24/21 23:10 Sodium 144 mmol/L (136-145) 01/27/21 05:10 Corrected Sodium 145 mmol/L (136-145) 01/27/21 05:10 Potassium 4.1 mmol/L (3.5-5.1) 01/27/21 05:10 Chloride 110 mmol/L (98-107) H 01/27/21 05:10 Carbon Dioxide 26.3 mmol/L (21-32) 01/27/21 05:10 BUN 23 mg/dL (7-18) H 01/27/21 05:10 Creatinine 1.10 mg/dL (0.55-1.02) H 01/27/21 05:10 Est GFR (MDRD) Af Amer > 60 (>60) 01/27/21 05:10 Est GFR (MDRD) Non-Af 52 (>60) L 01/27/21 05:10 Glucose 128 mg/dL (65-99) H 01/27/21 05:10 Calcium 8.2 mg/dL (8.5-10.1) L 01/27/21 05:10 Corrected Calcium 9.1 mg/dL (8.5-10.1) 01/27/21 05:10 Total Bilirubin 0.20 mg/dL (0.2-1.0) 01/27/21 05:10 AST 25 Units/L (15-37) 01/27/21 05:10 ALT 24 Units/L (12-78) 01/27/21 05:10 Alkaline Phosphatase 70 Units/L (46-116) 01/27/21 05:10 Creatine Kinase 305 Units/L (26-192) H 01/25/21 20:45 CK-MB (CK-2) 17.6 ng/mL (0-4.0) H* 01/25/21 20:45 CK/CKMB % Calc 5.8 % (<4) 01/25/21 20:45 Troponin I 1.88 ng/mL (0-1.5) H* 01/25/21 20:45 Total Protein 5.5 g/dL (6.4-8.2) L 01/27/21 05:10 Albumin 2.9 g/dL (3.4-5.0) L 01/27/21 05:10 Globulin 2.6 g/dL (2.5-4.5) 01/27/21 05:10 Albumin/Globulin Ratio 1.1 Ratio (1.1-2.1) 01/27/21 05:10 Specimen Type Catherized urine 01/25/21 03:35 Urine Color Yellow (YELLOW) 01/25/21 03:35 Urine Appearance Clear (CLEAR) 01/25/21 03:35 Urine pH 6.0 (5.0 - 8.0) 01/25/21 03:35 Ur Specific [place] 1.015 (1.000-1.030) 01/25/21 03:35 Urine Protein 2+ (NEGATIVE) 01/25/21 03:35 Urine Glucose (UA) Negative (NEGATIVE) 01/25/21 03:35 Urine Ketones Negative (NEGATIVE) 01/25/21 03:35 Urine Occult Blood Negative (NEGATIVE) 01/25/21 03:35 Urine Nitrite Negative (NEGATIVE) 01/25/21 03:35 Urine Bilirubin Negative (NEGATIVE) 01/25/21 03:35 Urine Urobilinogen Normal (NORMAL) 01/25/21 03:35 Ur Leukocyte Esterase Negative (NEGATIVE) 01/25/21 03:35 Urine RBC None seen /HPF (0-3) 01/25/21 03:35 Urine WBC None seen /HPF (0-5) 01/25/21 03:35 Ur Squamous Epith Cells Negative /HPF (NEGATIVE) 01/25/21 03:35 Urine Bacteria Trace /HPF (NEGATIVE) 01/25/21 03:35 Ur Culture Indicated? No/not indicated 01/25/21 03:35 SARS-CoV-2 (PCR) Negative (NEGATIVE) 01/25/21 00:33 Influenza Type A (PCR) Negative (NEGATIVE) 01/25/21 00:33 Influenza Type B (PCR) Negative (NEGATIVE) 01/25/21 00:33 RSV (PCR) Negative (NEGATIVE) 01/25/21 00:33 - Assessment and Plan 1: large RT pneumothorax . corrected with chest tube . slowly resolving SE . COPD with multiple blebs and emphysematous changes . same chest tube care . - Problem Patient Problems: Patient Problems Pneumothorax, right (Acute) J93.9 COPD exacerbation (Acute) J44.[address] (Acute) Z96.89
[2021-01-27] MEDS: PULMICORT NEB TX 0.5 MG NEB SCH ×2 (09:30→20:43)
--- NOTE | 2021-01-27 15:16 | PCM.PROG ---
Progress Note Progress Note for Day of Date of Exam: 01/27/21 Subjective Subjective: Patient seen at bedside, no events overnight. She states she feels better. Her neck and face swelling has improved slightly. She is in no distress. She has been stable on 2L NC. She reports eating well. Denies fever or chills, no N/V/D. Labs reviewed Imaging reviewed Plan: chest tube management as per Dr Cui, CXR for AM. CXR remains stable as compared to yesterday. Continue current diet. Continue Vanc/Zosyn. Continue current meds. Wean O2 as tolerated. Continue solumedrol and nebs. Monitor AM labs/imaging. Time spent for clinical assessment, reviewing labs/imaging, physical exam, decision making and documentation greater than 45 mins. Past Medical Family Social History Past Med/Fam/Surg Hx: No changes since H&P Allergies: Allergies No Known Drug Allergies Allergy (Verified 03/21/19 09:43) Review of Systems ROS: No change since H&P Vital Signs and I&O's Vital Signs: Temperature 98.0 F Pulse Rate [Radial] 76 Pulse Rate 76 Respiratory Rate 20 Blood Pressure [Left Arm] 114/59 Blood Pressure [Right Arm] 158/92 Blood Pressure 144/63 O2 Sat by Pulse Oximetry 99 Intake and Output: Intake & Output 01/24/21 01/25/21 01/26/21 01/27/21 23:59 23:59 23:59 23:59 Intake Total 1838 / 1838 2856 / 2856 1050 / 1050 Output Total 1800 / 1800 2510 / 2510 300 / 300 Balance 38 / 38 346 / 346 750 / 750 Physical Exam Oriented: Normal Eyes: Other (swollen, R>L) Throat: Normal Respiratory: Generalized, Diminished and OTHER (subcutanous emphysema on the right chest area ) Cardiovascular: Normal Auscultation: Bowel Sounds: Normal Tenderness: Normal Skin: Other (large sub cutaneous emphysema extending to the neck and face . ) Musculoskeletal: Normal Psychiatric: Normal Mood Description: Calm Affect: Normal Speech Pattern: Clear Laboratory and Diagnostics Result Diagrams: 01/27/21 05:10 01/27/21 05:10 Labs: Laboratory WBC 8.9 X10^3/uL (3.6-10.0) 01/27/21 05:10 RBC 4.36 X10^6/uL (3.5-5.4) 01/27/21 05:10 Hgb 12.2 g/dL (12.0-16.0) 01/27/21 05:10 Hct 36.3 % (36.0-47.0) 01/27/21 05:10 MCV 83.4 fL (80.0-100.0) 01/27/21 05:10 MCH 28.0 pg (27.0-34.0) 01/27/21 05:10 MCHC 33.5 g/dL (33.0-35.0) 01/27/21 05:10 RDW 14.5 % (11.6-16.5) 01/27/21 05:10 Plt Count 273 X10^3/uL (150.0-450.0) 01/27/21 05:10 Plt Count Comment Adequate (ADEQUATE) 01/27/21 05:10 MPV 7.7 fL (7.4-11.0) 01/27/21 05:10 Neut % (Auto) 94.2 % (42.0-75.0) H 01/27/21 05:10 Lymph % (Auto) 3.4 % (21.0-51.0) L 01/27/21 05:10 [place] % (Auto) 2.2 % (0.0-13.0) 01/27/21 05:10 Eos % (Auto) 0.0 % (0.9-2.9) L 01/27/21 05:10 Baso % (Auto) 0.2 % (0.2-1.0) 01/27/21 05:10 Neut # (Auto) 8.4 x10^3/uL (2.2-4.8) H 01/27/21 05:10 Lymph # (Auto) 0.3 X10^3/uL (1.3-2.9) L 01/27/21 05:10 [place] # (Auto) 0.2 x10^3/uL (0.3-0.8) L 01/27/21 05:10 Eos # (Auto) 0.0 x10^3/uL (0.0-0.2) 01/27/21 05:10 Baso # (Auto) 0.0 X10^3/uL (0.0-0.1) 01/27/21 05:10 Absolute Nucleated RBC 0.0 /100WBC 01/27/21 05:10 Total Counted 100 01/27/21 05:10 Neutrophils % (Manual) 95 % (39-76) H 01/27/21 05:10 Lymphocytes % (Manual) 3 % (13-43) L 01/27/21 05:10 Monocytes % (Manual) 2 % (4-9) L 01/27/21 05:10 Plt Morphology Comment Normal (NORMAL) 01/27/21 05:10 RBC Morphology Normal (NORMAL) 01/27/21 05:10 Sample Site Rrad 01/24/21 23:10 ABG pH 7.330 (7.35-7.45) L 01/24/21 23:10 ABG pCO2 50.0 mmHg (35.0-45.0) H 01/24/21 23:10 ABG pO2 54.0 mmHg (80.0-100.0) L 01/24/21 23:10 ABG HCO3 26.4 mmol/L (22-26) H 01/24/21 23:10 ABG O2 Saturation 85.0 % (90-100) L 01/24/21 23:10 ABG Base Excess -0.1 mmol/L (-2.0-2.0) 01/24/21 23:10 Jose Miguel Test Pos 01/24/21 23:10 A-a Gradient 140.0 mmHg 01/24/21 23:10 FiO2 36.0 01/24/21 23:10 Blood Gas Comments Ramana abg well-mtf 01/24/21 23:10 Sodium 144 mmol/L (136-145) 01/27/21 05:10 Corrected Sodium 145 mmol/L (136-145) 01/27/21 05:10 Potassium 4.1 mmol/L (3.5-5.1) 01/27/21 05:10 Chloride 110 mmol/L (98-107) H 01/27/21 05:10 Carbon Dioxide 26.3 mmol/L (21-32) 01/27/21 05:10 BUN 23 mg/dL (7-18) H 01/27/21 05:10 Creatinine 1.10 mg/dL (0.55-1.02) H 01/27/21 05:10 Est GFR (MDRD) Af Amer > 60 (>60) 01/27/21 05:10 Est GFR (MDRD) Non-Af 52 (>60) L 01/27/21 05:10 Glucose 128 mg/dL (65-99) H 01/27/21 05:10 Calcium 8.2 mg/dL (8.5-10.1) L 01/27/21 05:10 Corrected Calcium 9.1 mg/dL (8.5-10.1) 01/27/21 05:10 Total Bilirubin 0.20 mg/dL (0.2-1.0) 01/27/21 05:10 AST 25 Units/L (15-37) 01/27/21 05:10 ALT 24 Units/L (12-78) 01/27/21 05:10 Alkaline Phosphatase 70 Units/L (46-116) 01/27/21 05:10 Creatine Kinase 305 Units/L (26-192) H 01/25/21 20:45 CK-MB (CK-2) 17.6 ng/mL (0-4.0) H* 01/25/21 20:45 CK/CKMB % Calc 5.8 % (<4) 01/25/21 20:45 Troponin I 1.88 ng/mL (0-1.5) H* 01/25/21 20:45 Total Protein 5.5 g/dL (6.4-8.2) L 01/27/21 05:10 Albumin 2.9 g/dL (3.4-5.0) L 01/27/21 05:10 Globulin 2.6 g/dL (2.5-4.5) 01/27/21 05:10 Albumin/Globulin Ratio 1.1 Ratio (1.1-2.1) 01/27/21 05:10 Specimen Type Catherized urine 01/25/21 03:35 Urine Color Yellow (YELLOW) 01/25/21 03:35 Urine Appearance Clear (CLEAR) 01/25/21 03:35 Urine pH 6.0 (5.0 - 8.0) 01/25/21 03:35 Ur Specific [place] 1.015 (1.000-1.030) 01/25/21 03:35 Urine Protein 2+ (NEGATIVE) 01/25/21 03:35 Urine Glucose (UA) Negative (NEGATIVE) 01/25/21 03:35 Urine Ketones Negative (NEGATIVE) 01/25/21 03:35 Urine Occult Blood Negative (NEGATIVE) 01/25/21 03:35 Urine Nitrite Negative (NEGATIVE) 01/25/21 03:35 Urine Bilirubin Negative (NEGATIVE) 01/25/21 03:35 Urine Urobilinogen Normal (NORMAL) 01/25/21 03:35 Ur Leukocyte Esterase Negative (NEGATIVE) 01/25/21 03:35 Urine RBC None seen /HPF (0-3) 01/25/21 03:35 Urine WBC None seen /HPF (0-5) 01/25/21 03:35 Ur Squamous Epith Cells Negative /HPF (NEGATIVE) 01/25/21 03:35 Urine Bacteria Trace /HPF (NEGATIVE) 01/25/21 03:35 Ur Culture Indicated? No/not indicated 01/25/21 03:35 SARS-CoV-2 (PCR) Negative (NEGATIVE) 01/25/21 00:33 Influenza Type A (PCR) Negative (NEGATIVE) 01/25/21 00:33 Influenza Type B (PCR) Negative (NEGATIVE) 01/25/21 00:33 RSV (PCR) Negative (NEGATIVE) 01/25/21 00:33 Plan (1) Subcutaneous emphysema: Status: Acute Qualifiers: Encounter type: initial encounter Qualified Code(s): T79.7XXA - Traumatic subcutaneous emphysema, initial encounter (2) Chest tube in place: Status: Acute (3) Pneumothorax, right: Status: Acute (4) COPD exacerbation: Status: Acute (5) Weakness: Status: Acute (6) Acute renal injury: Status: Acute
[2021-01-27] MEDS ORDERED: PHARMACY COMMENT IV ONE (20:30)
[2021-01-27] MEDS: COLACE CAP 100 MG PO SCH (21:05)
[2021-01-27] MEDS: MILK OF MAGNESIA PO SCH (21:05)
[2021-01-27 22:56] LABS: CREATININE 1.15 mg/dL (0.55-1.02); VANCOMYCIN,TROUGH 14.5 ug/mL (15-20)
[2021-01-28] MEDS: SOLU-Medrol 125 MG VIAL IVP SCH ×3 (01:05→17:21)
[2021-01-28] MEDS: DUONEB 0.5 MG/3 MG (3 mL) NEB SCH ×6 (01:40→21:12)
[2021-01-28 05:24] LABS: BASOPHILS % (AUTO) 0 % (0.2-1.0); EOSINOPHILS % (AUTO) 0.1 % (0.9-2.9); HEMATOCRIT 36.5 % (36.0-47.0); HEMOGLOBIN 12.2 g/dL (12.0-16.0); LYMPHOCYTES # (AUTO) 0.4 X10^3/uL (1.3-2.9); LYMPHOCYTES % (AUTO) 4.5 % (21.0-51.0); MEAN CORPUSCULAR HEMOGLOBIN 28.1 pg (27.0-34.0); MEAN CORPUSCULAR HGB CONC 33.5 g/dL (33.0-35.0); MEAN CORPUSCULAR VOLUME 84.1 fL (80.0-100.0); MEAN PLATELET VOLUME 7.7 fL (7.4-11.0); MONOCYTES # (AUTO) 0.2 x10^3/uL (0.3-0.8); MONOCYTES % (AUTO) 2.9 % (0.0-13.0); NEUTROPHILS # (AUTO) 7.5 x10^3/uL (2.2-4.8); NEUTROPHILS % (AUTO) 92.5 % (42.0-75.0); PLATELET COUNT 273 X10^3/uL (150.0-450.0); RED BLOOD COUNT 4.34 X10^6/uL (3.5-5.4); RED CELL DISTRIBUTION WIDTH 14.3 % (11.6-16.5); WHITE BLOOD COUNT 8.1 X10^3/uL (3.6-10.0)
[2021-01-28 05:32] LABS: ALANINE AMINOTRANSFERASE 37 Units/L (12-78); ALBUMIN 2.9 g/dL (3.4-5.0); ALKALINE PHOSPHATASE 65 Units/L (46-116); ASPARTATE AMINO TRANSFERASE 26 Units/L (15-37); BLOOD UREA NITROGEN 23 mg/dL (7-18); CARBON DIOXIDE 28.3 mmol/L (21-32); CHLORIDE 110 mmol/L (98-107); COR CA(FOR HYPOALB) 8.9 mg/dL (8.5-10.1); COR NA(FOR HYPERGLY) 146 mmol/L (136-145); CREATININE 0.96 mg/dL (0.55-1.02); SODIUM 145 mmol/L (136-145); TOTAL PROTEIN 5.4 g/dL (6.4-8.2); eGFR NON BLACK RACES > 60 (>60)
[2021-01-28] MEDS: NEURONTIN CAP 300 MG PO SCH ×3 (05:45→21:45)
[2021-01-28] MEDS: ZOSYN VIAL 3.375 GRAMS 3.375 G in NS 100 ML IV + SPIKE MINIBAG* 100 ML IV SCH ×3 (05:45→21:45)
[2021-01-28 05:52] LABS: BAND NEUTROPHILS % 2 % (0-10); PLATELET MORPHOLOGY COMMENT NORMAL (NORMAL)
[2021-01-28] MEDS: LOVENOX INJ 40 MG SYR SC SCH (09:17)
[2021-01-28] MEDS: LACRI-LUBE S.O.P. AFFEYE SCH ×2 (09:17→21:45)
[2021-01-28] MEDS: NORVASC TAB 10 MG PO SCH (09:18)
[2021-01-28] MEDS: SINGULAIR TAB 10 MG PO SCH (09:18)
[2021-01-28] MEDS: VANCOMYCIN IV *PREMIX 1 G/200 ML BAG 1 G/200 ML PIGGYBACK IV SCH ×2 (09:19→20:51)
[2021-01-28] MEDS: SYNTHROID 50 mcg TAB PO SCH (09:19)
[2021-01-28] MEDS: NS 1,000 ML IV 1,000 ML IV SCH (09:21)
[2021-01-28] MEDS: PULMICORT NEB TX 0.5 MG NEB SCH ×2 (09:40→21:12)
[2021-01-28] MEDS: PEPCID TAB 20 MG PO SCH (11:35)
--- NOTE | 2021-01-28 12:36 | RAD ---
HISTORYFOLLOW UP PNEUMOTHORAXSTUDYCHEST x-ray, 1 VIEWCOMPARISONX-ray 01/27/2021FINDINGSProminent diffuse free air is seen in the chest wall and lower neck. This is similar to prior study. There is likely mild pneumomediastinum, slightly improved. There is a right-sided chest tube that appears slightly more centrally located than on prior study. No right-sided pneumothorax is seen.Heart is normal in size. Diffuse lung infiltrates are suspected and may be due to pneumonia or noncardiogenic pulmonary edema.IMPRESSIONSlight improvement of pneumomediastinum but persistent free air is seen in the chest wall.Likely improved position of the right sided chest tube and no right-sided pneumothorax is seen.Persistent diffuse lung infiltrates are present.Electronically signed by: Conner Das (Jan 28, 2021 12:34:38)
[2021-01-28] MEDS ORDERED: NS 100 ML IV + SPIKE MINIBAG* 100 ML IV ONE (13:27)
[2021-01-28] MEDS: COLACE CAP 100 MG PO SCH (21:30)
[2021-01-28] MEDS: MILK OF MAGNESIA PO SCH (21:45)
[2021-01-29] MEDS: SOLU-Medrol 125 MG VIAL IVP SCH ×3 (01:20→17:09)
[2021-01-29] MEDS: DUONEB 0.5 MG/3 MG (3 mL) NEB SCH ×6 (01:30→20:11)
[2021-01-29 05:13] LABS: BASOPHILS % (AUTO) 0 % (0.2-1.0); HEMATOCRIT 36.3 % (36.0-47.0); HEMOGLOBIN 12.2 g/dL (12.0-16.0); LYMPHOCYTES # (AUTO) 0.3 X10^3/uL (1.3-2.9); LYMPHOCYTES % (AUTO) 4.3 % (21.0-51.0); MEAN CORPUSCULAR HEMOGLOBIN 27.8 pg (27.0-34.0); MEAN CORPUSCULAR HGB CONC 33.5 g/dL (33.0-35.0); MEAN PLATELET VOLUME 7.6 fL (7.4-11.0); MONOCYTES # (AUTO) 0.3 x10^3/uL (0.3-0.8); MONOCYTES % (AUTO) 3.7 % (0.0-13.0); NEUTROPHILS # (AUTO) 6.9 x10^3/uL (2.2-4.8); PLATELET COUNT 286 X10^3/uL (150.0-450.0); RED BLOOD COUNT 4.37 X10^6/uL (3.5-5.4); RED CELL DISTRIBUTION WIDTH 14.6 % (11.6-16.5); WHITE BLOOD COUNT 7.5 X10^3/uL (3.6-10.0)
[2021-01-29 05:25] LABS: ALANINE AMINOTRANSFERASE 53 Units/L (12-78); ALBUMIN 2.7 g/dL (3.4-5.0); ALKALINE PHOSPHATASE 59 Units/L (46-116); ASPARTATE AMINO TRANSFERASE 32 Units/L (15-37); BLOOD UREA NITROGEN 23 mg/dL (7-18); CALCIUM 7.7 mg/dL (8.5-10.1); CARBON DIOXIDE 26.6 mmol/L (21-32); CHLORIDE 109 mmol/L (98-107); COR CA(FOR HYPOALB) 8.7 mg/dL (8.5-10.1); COR NA(FOR HYPERGLY) 145 mmol/L (136-145); CREATININE 0.85 mg/dL (0.55-1.02); SODIUM 144 mmol/L (136-145); TOTAL PROTEIN 5.1 g/dL (6.4-8.2); eGFR NON BLACK RACES > 60 (>60)
[2021-01-29 05:35] LABS: PLATELET MORPHOLOGY COMMENT NORMAL (NORMAL)
[2021-01-29] MEDS: NEURONTIN CAP 300 MG PO SCH ×3 (05:44→21:16)
[2021-01-29] MEDS: ZOSYN VIAL 3.375 GRAMS 3.375 G in NS 100 ML IV + SPIKE MINIBAG* 100 ML IV SCH ×3 (05:44→21:40)
--- NOTE | 2021-01-29 07:07 | RAD ---
CHEST, 1 VIEWHISTORY: PNEUMONTHORAXStudy: Single view of the chest.Comparison:NoneFindings:The cardiomediastinal silhouette is normal. No change in the appearance of diffuse subcutaneous emphysema. No visible pneumothorax. Right-sided chest tube again overlies the right lower hemithorax. Osseous structures demonstrate no acute abnormality.IMPRESSION:1. No change from prior.Electronically signed by: DONNA RITCHIE (Jan 29, 2021 07:06:01)
[2021-01-29] MEDS: LACRI-LUBE S.O.P. AFFEYE SCH ×2 (08:29→20:50)
[2021-01-29] MEDS: SINGULAIR TAB 10 MG PO SCH (08:30)
[2021-01-29] MEDS: LOVENOX INJ 40 MG SYR SC SCH (08:30)
[2021-01-29] MEDS: PEPCID TAB 20 MG PO SCH (08:30)
[2021-01-29] MEDS: SYNTHROID 50 mcg TAB PO SCH (08:30)
[2021-01-29] MEDS: NORVASC TAB 10 MG PO SCH (08:31)
[2021-01-29] MEDS: VANCOMYCIN IV *PREMIX 1 G/200 ML BAG 1 G/200 ML PIGGYBACK IV SCH ×2 (08:31→20:51)
[2021-01-29] MEDS: PULMICORT NEB TX 0.5 MG NEB SCH ×2 (09:11→20:11)
--- NOTE | 2021-01-29 11:44 | PCM.PROG ---
Progress Note Progress Note for Day of Date of Exam: 01/29/21 Subjective Subjective: Patient seen at bedside, no events overnight. She states she feels better. Her neck and face swelling is stable. She is in no distress. She has been stable on 2L NC. She reports eating well. Denies fever or chills, no N/V/D. Labs reviewed Imaging reviewed Sputum Cx pending Plan: chest tube management as per Dr Cui, CXR for AM. CXR remains stable. Continue current diet. Continue Vanc/Zosyn. Continue current meds. Wean O2 as tolerated. Continue solumedrol and nebs. Monitor AM labs/imaging. Past Medical Family Social History Past Med/Fam/Surg Hx: No changes since H&P Allergies: Allergies No Known Drug Allergies Allergy (Verified 03/21/19 09:43) Review of Systems ROS: No change since H&P Vital Signs and I&O's Vital Signs: Temperature 97.8 F Pulse Rate [Radial] 76 Pulse Rate 79 Respiratory Rate 35 Blood Pressure [Left Arm] 114/59 Blood Pressure [Right Arm] 158/92 Blood Pressure 145/74 O2 Sat by Pulse Oximetry 96 Intake and Output: Intake & Output 01/26/21 01/27/21 01/28/21 01/29/21 23:59 23:59 23:59 23:59 Intake Total 2856 / 2856 3215 / 3215 3610 / 3610 750 / 750 Output Total 2510 / 2510 1200 / 1200 1265 / 1265 1011 / 1011 Balance 346 / 346 2014 / 2014 2345 / 2345 -261 / -261 Physical Exam Oriented: Normal Eyes: Other (swollen, slightly better) Throat: Normal Respiratory: Generalized, Diminished, Wheezes and OTHER (subcutanous emphysema on the right chest area improving ) Cardiovascular: Normal Auscultation: Bowel Sounds: Normal Tenderness: Normal Skin: Other (large sub cutaneous emphysema extending to the neck and face - improved) Musculoskeletal: Normal Psychiatric: Normal Mood Description: Calm Affect: Normal Speech Pattern: Clear Laboratory and Diagnostics Result Diagrams: 01/29/21 04:31 01/29/21 04:31 Labs: 01/28/21 15:40 Sputum - Expectorated Sputum - Final Laboratory WBC 7.5 X10^3/uL (3.6-10.0) 01/29/21 04:31 RBC 4.37 X10^6/uL (3.5-5.4) 01/29/21 04:31 Hgb 12.2 g/dL (12.0-16.0) 01/29/21 04:31 Hct 36.3 % (36.0-47.0) 01/29/21 04:31 MCV 83.0 fL (80.0-100.0) 01/29/21 04:31 MCH 27.8 pg (27.0-34.0) 01/29/21 04:31 MCHC 33.5 g/dL (33.0-35.0) 01/29/21 04:31 RDW 14.6 % (11.6-16.5) 01/29/21 04:31 Plt Count 286 X10^3/uL (150.0-450.0) 01/29/21 04:31 Plt Count Comment Adequate (ADEQUATE) 01/29/21 04:31 MPV 7.6 fL (7.4-11.0) 01/29/21 04:31 Neut % (Auto) 92.0 % (42.0-75.0) H 01/29/21 04:31 Lymph % (Auto) 4.3 % (21.0-51.0) L 01/29/21 04:31 [place] % (Auto) 3.7 % (0.0-13.0) 01/29/21 04:31 Eos % (Auto) 0.0 % (0.9-2.9) L 01/29/21 04:31 Baso % (Auto) 0 % (0.2-1.0) L 01/29/21 04:31 Neut # (Auto) 6.9 x10^3/uL (2.2-4.8) H 01/29/21 04:31 Lymph # (Auto) 0.3 X10^3/uL (1.3-2.9) L 01/29/21 04:31 [place] # (Auto) 0.3 x10^3/uL (0.3-0.8) 01/29/21 04:31 Eos # (Auto) 0.0 x10^3/uL (0.0-0.2) 01/29/21 04:31 Baso # (Auto) 0.0 X10^3/uL (0.0-0.1) 01/29/21 04:31 Absolute Nucleated RBC 0.0 /100WBC 01/29/21 04:31 Total Counted 100 01/29/21 04:31 Neutrophils % (Manual) 90 % (39-76) H 01/29/21 04:31 Band Neutrophils % 2 % (0-10) 01/28/21 04:45 Lymphocytes % (Manual) 7 % (13-43) L 01/29/21 04:31 Monocytes % (Manual) 3 % (4-9) L 01/29/21 04:31 Plt Morphology Comment Normal (NORMAL) 01/29/21 04:31 RBC Morphology Normal (NORMAL) 01/29/21 04:31 Sample Site Rrad 01/24/21 23:10 ABG pH 7.330 (7.35-7.45) L 01/24/21 23:10 ABG pCO2 50.0 mmHg (35.0-45.0) H 01/24/21 23:10 ABG pO2 54.0 mmHg (80.0-100.0) L 01/24/21 23:10 ABG HCO3 26.4 mmol/L (22-26) H 01/24/21 23:10 ABG O2 Saturation 85.0 % (90-100) L 01/24/21 23:10 ABG Base Excess -0.1 mmol/L (-2.0-2.0) 01/24/21 23:10 Jose Miguel Test Pos 01/24/21 23:10 A-a Gradient 140.0 mmHg 01/24/21 23:10 FiO2 36.0 01/24/21 23:10 Blood Gas Comments Ramana abg well-mtf 01/24/21 23:10 Sodium 144 mmol/L (136-145) 01/29/21 04:31 Corrected Sodium 145 mmol/L (136-145) 01/29/21 04:31 Potassium 3.9 mmol/L (3.5-5.1) 01/29/21 04:31 Chloride 109 mmol/L (98-107) H 01/29/21 04:31 Carbon Dioxide 26.6 mmol/L (21-32) 01/29/21 04:31 BUN 23 mg/dL (7-18) H 01/29/21 04:31 Creatinine 0.85 mg/dL (0.55-1.02) 01/29/21 04:31 Est GFR (MDRD) Af Amer > 60 (>60) 01/29/21 04:31 Est GFR (MDRD) Non-Af > 60 (>60) 01/29/21 04:31 Glucose 132 mg/dL (65-99) H 01/29/21 04:31 Calcium 7.7 mg/dL (8.5-10.1) L 01/29/21 04:31 Corrected Calcium 8.7 mg/dL (8.5-10.1) 01/29/21 04:31 Total Bilirubin 0.20 mg/dL (0.2-1.0) 01/29/21 04:31 AST 32 Units/L (15-37) 01/29/21 04:31 ALT 53 Units/L (12-78) 01/29/21 04:31 Alkaline Phosphatase 59 Units/L (46-116) 01/29/21 04:31 Creatine Kinase 305 Units/L (26-192) H 01/25/21 20:45 CK-MB (CK-2) 17.6 ng/mL (0-4.0) H* 01/25/21 20:45 CK/CKMB % Calc 5.8 % (<4) 01/25/21 20:45 Troponin I 1.88 ng/mL (0-1.5) H* 01/25/21 20:45 Total Protein 5.1 g/dL (6.4-8.2) L 01/29/21 04:31 Albumin 2.7 g/dL (3.4-5.0) L 01/29/21 04:31 Globulin 2.4 g/dL (2.5-4.5) L 01/29/21 04:31 Albumin/Globulin Ratio 1.1 Ratio (1.1-2.1) 01/29/21 04:31 Specimen Type Catherized urine 01/25/21 03:35 Urine Color Yellow (YELLOW) 01/25/21 03:35 Urine Appearance Clear (CLEAR) 01/25/21 03:35 Urine pH 6.0 (5.0 - 8.0) 01/25/21 03:35 Ur Specific [place] 1.015 (1.000-1.030) 01/25/21 03:35 Urine Protein 2+ (NEGATIVE) 01/25/21 03:35 Urine Glucose (UA) Negative (NEGATIVE) 01/25/21 03:35 Urine Ketones Negative (NEGATIVE) 01/25/21 03:35 Urine Occult Blood Negative (NEGATIVE) 01/25/21 03:35 Urine Nitrite Negative (NEGATIVE) 01/25/21 03:35 Urine Bilirubin Negative (NEGATIVE) 01/25/21 03:35 Urine Urobilinogen Normal (NORMAL) 01/25/21 03:35 Ur Leukocyte Esterase Negative (NEGATIVE) 01/25/21 03:35 Urine RBC None seen /HPF (0-3) 01/25/21 03:35 Urine WBC None seen /HPF (0-5) 01/25/21 03:35 Ur Squamous Epith Cells Negative /HPF (NEGATIVE) 01/25/21 03:35 Urine Bacteria Trace /HPF (NEGATIVE) 01/25/21 03:35 Ur Culture Indicated? No/not indicated 01/25/21 03:35 Vancomycin Trough 14.5 ug/mL (15-20) L 01/27/21 22:30 SARS-CoV-2 (PCR) Negative (NEGATIVE) 01/25/21 00:33 Influenza Type A (PCR) Negative (NEGATIVE) 01/25/21 00:33 Influenza Type B (PCR) Negative (NEGATIVE) 01/25/21 00:33 RSV (PCR) Negative (NEGATIVE) 01/25/21 00:33 Plan (1) Subcutaneous emphysema: Status: Acute Qualifiers: Encounter type: initial encounter Qualified Code(s): T79.7XXA - Traumatic subcutaneous emphysema, initial encounter (2) Chest tube in place: Status: Acute (3) Pneumothorax, right: Status: Acute (4) COPD exacerbation: Status: Acute (5) Weakness: Status: Acute (6) Acute renal injury: Status: Acute
[2021-01-29] MEDS ORDERED: VENTOLIN or PROAIR HFA IN PRN (11:45)
[2021-01-29 20:27] LABS: CREATININE 1.17 mg/dL (0.55-1.02); VANCOMYCIN,TROUGH 18.9 ug/mL (15-20)
[2021-01-29] MEDS: MILK OF MAGNESIA PO SCH (20:50)
[2021-01-29] MEDS: COLACE CAP 100 MG PO SCH (20:50)
[2021-01-30] MEDS: SOLU-Medrol 125 MG VIAL IVP SCH ×3 (00:07→17:38)
[2021-01-30] MEDS: DUONEB 0.5 MG/3 MG (3 mL) NEB SCH ×6 (01:50→21:29)
[2021-01-30 05:21] LABS: BASOPHILS % (AUTO) 0 % (0.2-1.0); HEMATOCRIT 34.7 % (36.0-47.0); HEMOGLOBIN 11.5 g/dL (12.0-16.0); LYMPHOCYTES # (AUTO) 0.5 X10^3/uL (1.3-2.9); MEAN CORPUSCULAR HEMOGLOBIN 27.7 pg (27.0-34.0); MEAN CORPUSCULAR HGB CONC 33.2 g/dL (33.0-35.0); MEAN CORPUSCULAR VOLUME 83.6 fL (80.0-100.0); MEAN PLATELET VOLUME 7.6 fL (7.4-11.0); MONOCYTES # (AUTO) 0.4 x10^3/uL (0.3-0.8); MONOCYTES % (AUTO) 6.4 % (0.0-13.0); NEUTROPHILS # (AUTO) 4.8 x10^3/uL (2.2-4.8); NEUTROPHILS % (AUTO) 85.6 % (42.0-75.0); PLATELET COUNT 258 X10^3/uL (150.0-450.0); RED BLOOD COUNT 4.15 X10^6/uL (3.5-5.4); RED CELL DISTRIBUTION WIDTH 14.6 % (11.6-16.5); WHITE BLOOD COUNT 5.6 X10^3/uL (3.6-10.0)
[2021-01-30 05:35] LABS: ALANINE AMINOTRANSFERASE 46 Units/L (12-78); ALBUMIN 2.5 g/dL (3.4-5.0); ALKALINE PHOSPHATASE 51 Units/L (46-116); ASPARTATE AMINO TRANSFERASE 21 Units/L (15-37); BLOOD UREA NITROGEN 24 mg/dL (7-18); CALCIUM 7.6 mg/dL (8.5-10.1); CARBON DIOXIDE 32.6 mmol/L (21-32); CHLORIDE 108 mmol/L (98-107); COR CA(FOR HYPOALB) 8.8 mg/dL (8.5-10.1); COR NA(FOR HYPERGLY) 144 mmol/L (136-145); CREATININE 1.03 mg/dL (0.55-1.02); SODIUM 143 mmol/L (136-145); TOTAL PROTEIN 4.6 g/dL (6.4-8.2); eGFR NON BLACK RACES 56 (>60)
[2021-01-30 06:03] LABS: PLATELET MORPHOLOGY COMMENT NORMAL (NORMAL)
[2021-01-30] MEDS: ZOSYN VIAL 3.375 GRAMS 3.375 G in NS 100 ML IV + SPIKE MINIBAG* 100 ML IV SCH ×3 (06:17→22:50)
[2021-01-30] MEDS: NEURONTIN CAP 300 MG PO SCH ×3 (06:17→22:50)
--- NOTE | 2021-01-30 07:09 | RAD ---
CHEST, 1 VIEWHISTORY: COPD, PNEUMOTHORAXStudy: Single view of the chest.Comparison:NoneFindings:The cardiomediastinal silhouette is normal. No change in the appearance of diffuse subcutaneous emphysema without definite pneumothorax. Osseous structures demonstrate no acute abnormality.IMPRESSION:1. No change from prior.Electronically signed by: DONNA RITCHIE (Jan 30, 2021 07:08:43)
[2021-01-30] MEDS: LOVENOX INJ 40 MG SYR SC SCH (09:01)
[2021-01-30] MEDS: LACRI-LUBE S.O.P. AFFEYE SCH ×2 (09:01→20:35)
[2021-01-30] MEDS: NORVASC TAB 10 MG PO SCH (09:01)
[2021-01-30] MEDS: PEPCID TAB 20 MG PO SCH (09:01)
[2021-01-30] MEDS: VANCOMYCIN IV *PREMIX 1 G/200 ML BAG 1 G/200 ML PIGGYBACK IV SCH (09:02)
[2021-01-30] MEDS: SYNTHROID 50 mcg TAB PO SCH (09:02)
[2021-01-30] MEDS: SINGULAIR TAB 10 MG PO SCH (09:02)
[2021-01-30] MEDS ORDERED: NS 250 ML IV 250 ML IV ONE (09:15)
[2021-01-30] MEDS: PULMICORT NEB TX 0.5 MG NEB SCH ×2 (09:20→21:29)
--- NOTE | 2021-01-30 11:24 | PCM.PROG ---
Progress Note Progress Note for Day of Date of Exam: 03/02/21 Subjective Subjective: Patient seen at bedside, no events overnight. She states she feels better. Her neck and face swelling has improved. Her eyes are not as puffy as before. She reports eating well. Denies fever or chills, no N/V/D. Labs reviewed Imaging reviewed Sputum Cx: yeast, Gm (-) rods Plan: chest tube management as per Dr Cui, CXR for AM. CXR remains stable. Continue current diet. Continue Zosyn, DC Vanc. Add Diflucan Continue current meds. Wean O2 as tolerated. Continue solumedrol and nebs. Monitor AM labs/imaging. Past Medical Family Social History Past Med/Fam/Surg Hx: No changes since H&P Allergies: Allergies No Known Drug Allergies Allergy (Verified 03/21/19 09:43) Review of Systems ROS: No change since H&P Vital Signs and I&O's Vital Signs: Temperature 97.7 F Pulse Rate [Radial] 76 Pulse Rate 80 Respiratory Rate 16 Blood Pressure [Left Arm] 114/59 Blood Pressure [Right Arm] 158/92 Blood Pressure 148/70 O2 Sat by Pulse Oximetry 93 Intake and Output: Intake & Output 01/27/21 01/28/21 01/29/21 01/30/21 23:59 23:59 23:59 23:59 Intake Total 3215 / 3215 3610 / 3610 1365 / 1365 343 / 343 Output Total 1200 / 1200 1265 / 1265 2831 / 2831 810 / 810 Balance 2014 2345 / 2345 -1466 / -1466 -467 / -467 Physical Exam Oriented: Normal Eyes: Other (swollen, better) Throat: Normal Respiratory: Generalized, Diminished, Wheezes and OTHER (subcutanous emphysema on the right chest area improving ) Cardiovascular: Normal Auscultation: Bowel Sounds: Normal Tenderness: Normal Skin: Other (large sub cutaneous emphysema extending to the neck and face - improved) Musculoskeletal: Normal Psychiatric: Normal Mood Description: Calm Affect: Normal Speech Pattern: Clear Laboratory and Diagnostics Result Diagrams: 01/30/21 04:42 01/30/21 04:42 Labs: 01/28/21 15:40 Sputum - Expectorated Sputum Sputum Culture - Preliminary Klebsiella Pneumoniae 01/28/21 15:40 Sputum - Expectorated Sputum - Final Laboratory WBC 5.6 X10^3/uL (3.6-10.0) 01/30/21 04:42 RBC 4.15 X10^6/uL (3.5-5.4) 01/30/21 04:42 Hgb 11.5 g/dL (12.0-16.0) L 01/30/21 04:42 Hct 34.7 % (36.0-47.0) L 01/30/21 04:42 MCV 83.6 fL (80.0-100.0) 01/30/21 04:42 MCH 27.7 pg (27.0-34.0) 01/30/21 04:42 MCHC 33.2 g/dL (33.0-35.0) 01/30/21 04:42 RDW 14.6 % (11.6-16.5) 01/30/21 04:42 Plt Count 258 X10^3/uL (150.0-450.0) 01/30/21 04:42 Plt Count Comment Adequate (ADEQUATE) 01/30/21 04:42 MPV 7.6 fL (7.4-11.0) 01/30/21 04:42 Neut % (Auto) 85.6 % (42.0-75.0) H 01/30/21 04:42 Lymph % (Auto) 8.0 % (21.0-51.0) L 01/30/21 04:42 [place] % (Auto) 6.4 % (0.0-13.0) 01/30/21 04:42 Eos % (Auto) 0.0 % (0.9-2.9) L 01/30/21 04:42 Baso % (Auto) 0 % (0.2-1.0) L 01/30/21 04:42 Neut # (Auto) 4.8 x10^3/uL (2.2-4.8) 01/30/21 04:42 Lymph # (Auto) 0.5 X10^3/uL (1.3-2.9) L 01/30/21 04:42 [place] # (Auto) 0.4 x10^3/uL (0.3-0.8) 01/30/21 04:42 Eos # (Auto) 0.0 x10^3/uL (0.0-0.2) 01/30/21 04:42 Baso # (Auto) 0.0 X10^3/uL (0.0-0.1) 01/30/21 04:42 Absolute Nucleated RBC 0.0 /100WBC 01/30/21 04:42 Total Counted 100 01/30/21 04:42 Neutrophils % (Manual) 87 % (39-76) H 01/30/21 04:42 Band Neutrophils % 2 % (0-10) 01/28/21 04:45 Lymphocytes % (Manual) 10 % (13-43) L 01/30/21 04:42 Monocytes % (Manual) 3 % (4-9) L 01/30/21 04:42 Plt Morphology Comment Normal (NORMAL) 01/30/21 04:42 RBC Morphology Normal (NORMAL) 01/30/21 04:42 Sample Site Rrad 01/24/21 23:10 ABG pH 7.330 (7.35-7.45) L 01/24/21 23:10 ABG pCO2 50.0 mmHg (35.0-45.0) H 01/24/21 23:10 ABG pO2 54.0 mmHg (80.0-100.0) L 01/24/21 23:10 ABG HCO3 26.4 mmol/L (22-26) H 01/24/21 23:10 ABG O2 Saturation 85.0 % (90-100) L 01/24/21 23:10 ABG Base Excess -0.1 mmol/L (-2.0-2.0) 01/24/21 23:10 Jose Miguel Test Pos 01/24/21 23:10 A-a Gradient 140.0 mmHg 01/24/21 23:10 FiO2 36.0 01/24/21 23:10 Blood Gas Comments Ramana abg well-mtf 01/24/21 23:10 Sodium 143 mmol/L (136-145) 01/30/21 04:42 Corrected Sodium 144 mmol/L (136-145) 01/30/21 04:42 Potassium 4.2 mmol/L (3.5-5.1) 01/30/21 04:42 Chloride 108 mmol/L (98-107) H 01/30/21 04:42 Carbon Dioxide 32.6 mmol/L (21-32) H 01/30/21 04:42 BUN 24 mg/dL (7-18) H 01/30/21 04:42 Creatinine 1.03 mg/dL (0.55-1.02) H 01/30/21 04:42 Est GFR (MDRD) Af Amer > 60 (>60) 01/30/21 04:42 Est GFR (MDRD) Non-Af 56 (>60) L 01/30/21 04:42 Glucose 124 mg/dL (65-99) H 01/30/21 04:42 Calcium 7.6 mg/dL (8.5-10.1) L 01/30/21 04:42 Corrected Calcium 8.8 mg/dL (8.5-10.1) 01/30/21 04:42 Total Bilirubin 0.30 mg/dL (0.2-1.0) 01/30/21 04:42 AST 21 Units/L (15-37) 01/30/21 04:42 ALT 46 Units/L (12-78) 01/30/21 04:42 Alkaline Phosphatase 51 Units/L (46-116) 01/30/21 04:42 Creatine Kinase 305 Units/L (26-192) H 01/25/21 20:45 CK-MB (CK-2) 17.6 ng/mL (0-4.0) H* 01/25/21 20:45 CK/CKMB % Calc 5.8 % (<4) 01/25/21 20:45 Troponin I 1.88 ng/mL (0-1.5) H* 01/25/21 20:45 Total Protein 4.6 g/dL (6.4-8.2) L 01/30/21 04:42 Albumin 2.5 g/dL (3.4-5.0) L 01/30/21 04:42 Globulin 2.1 g/dL (2.5-4.5) L 01/30/21 04:42 Albumin/Globulin Ratio 1.2 Ratio (1.1-2.1) 01/30/21 04:42 Specimen Type Catherized urine 01/25/21 03:35 Urine Color Yellow (YELLOW) 01/25/21 03:35 Urine Appearance Clear (CLEAR) 01/25/21 03:35 Urine pH 6.0 (5.0 - 8.0) 01/25/21 03:35 Ur Specific [place] 1.015 (1.000-1.030) 01/25/21 03:35 Urine Protein 2+ (NEGATIVE) 01/25/21 03:35 Urine Glucose (UA) Negative (NEGATIVE) 01/25/21 03:35 Urine Ketones Negative (NEGATIVE) 01/25/21 03:35 Urine Occult Blood Negative (NEGATIVE) 01/25/21 03:35 Urine Nitrite Negative (NEGATIVE) 01/25/21 03:35 Urine Bilirubin Negative (NEGATIVE) 01/25/21 03:35 Urine Urobilinogen Normal (NORMAL) 01/25/21 03:35 Ur Leukocyte Esterase Negative (NEGATIVE) 01/25/21 03:35 Urine RBC None seen /HPF (0-3) 01/25/21 03:35 Urine WBC None seen /HPF (0-5) 01/25/21 03:35 Ur Squamous Epith Cells Negative /HPF (NEGATIVE) 01/25/21 03:35 Urine Bacteria Trace /HPF (NEGATIVE) 01/25/21 03:35 Ur Culture Indicated? No/not indicated 01/25/21 03:35 Vancomycin Trough 18.9 ug/mL (15-20) 01/29/21 19:56 SARS-CoV-2 (PCR) Negative (NEGATIVE) 01/25/21 00:33 Influenza Type A (PCR) Negative (NEGATIVE) 01/25/21 00:33 Influenza Type B (PCR) Negative (NEGATIVE) 01/25/21 00:33 RSV (PCR) Negative (NEGATIVE) 01/25/21 00:33 Plan (1) Subcutaneous emphysema: Status: Acute Qualifiers: Encounter type: initial encounter Qualified Code(s): T79.7XXA - Traumatic subcutaneous emphysema, initial encounter (2) Chest tube in place: Status: Acute (3) Pneumothorax, right: Status: Acute (4) COPD exacerbation: Status: Acute (5) Weakness: Status: Acute (6) Acute renal injury: Status: Acute
[2021-01-30] MEDS: DIFLUCAN 200 MG IV PREMIX* 200 MG/100 ML BAG IV SCH (12:39)
[2021-01-30] MEDS: COLACE CAP 100 MG PO SCH (20:35)
[2021-01-30] MEDS: MILK OF MAGNESIA PO SCH (20:35)
[2021-01-31] MEDS: SOLU-Medrol 125 MG VIAL IVP SCH ×3 (00:47→16:55)
[2021-01-31] MEDS: DUONEB 0.5 MG/3 MG (3 mL) NEB SCH ×6 (00:58→20:40)
[2021-01-31 05:10] LABS: BASOPHILS % (AUTO) 0.1 % (0.2-1.0); HEMATOCRIT 35.5 % (36.0-47.0); LYMPHOCYTES # (AUTO) 0.3 X10^3/uL (1.3-2.9); LYMPHOCYTES % (AUTO) 5.7 % (21.0-51.0); MEAN CORPUSCULAR HEMOGLOBIN 28.1 pg (27.0-34.0); MEAN CORPUSCULAR HGB CONC 33.8 g/dL (33.0-35.0); MEAN PLATELET VOLUME 7.5 fL (7.4-11.0); MONOCYTES # (AUTO) 0.2 x10^3/uL (0.3-0.8); MONOCYTES % (AUTO) 3.4 % (0.0-13.0); NEUTROPHILS # (AUTO) 5.3 x10^3/uL (2.2-4.8); NEUTROPHILS % (AUTO) 90.8 % (42.0-75.0); PLATELET COUNT 252 X10^3/uL (150.0-450.0); RED BLOOD COUNT 4.28 X10^6/uL (3.5-5.4); RED CELL DISTRIBUTION WIDTH 14.4 % (11.6-16.5); WHITE BLOOD COUNT 5.8 X10^3/uL (3.6-10.0)
[2021-01-31 05:20] LABS: ALANINE AMINOTRANSFERASE 44 Units/L (12-78); ALBUMIN 2.5 g/dL (3.4-5.0); ALKALINE PHOSPHATASE 53 Units/L (46-116); ASPARTATE AMINO TRANSFERASE 22 Units/L (15-37); BLOOD UREA NITROGEN 23 mg/dL (7-18); CALCIUM 7.6 mg/dL (8.5-10.1); CARBON DIOXIDE 32.7 mmol/L (21-32); CHLORIDE 107 mmol/L (98-107); COR CA(FOR HYPOALB) 8.8 mg/dL (8.5-10.1); COR NA(FOR HYPERGLY) 145 mmol/L (136-145); CREATININE 0.86 mg/dL (0.55-1.02); SODIUM 144 mmol/L (136-145); TOTAL PROTEIN 4.7 g/dL (6.4-8.2); eGFR NON BLACK RACES > 60 (>60)
[2021-01-31] MEDS: NEURONTIN CAP 300 MG PO SCH ×3 (05:38→21:06)
[2021-01-31 05:39] LABS: PLATELET MORPHOLOGY COMMENT NORMAL (NORMAL)
[2021-01-31] MEDS: ZOSYN VIAL 3.375 GRAMS 3.375 G in NS 100 ML IV + SPIKE MINIBAG* 100 ML IV SCH ×3 (05:39→21:06)
[2021-01-31] MEDS: LACRI-LUBE S.O.P. AFFEYE SCH ×2 (08:21→21:06)
[2021-01-31] MEDS: DIFLUCAN 200 MG IV PREMIX* 200 MG/100 ML BAG IV SCH (08:21)
[2021-01-31] MEDS: LOVENOX INJ 40 MG SYR SC SCH (08:21)
[2021-01-31] MEDS: PEPCID TAB 20 MG PO SCH (08:22)
[2021-01-31] MEDS: NORVASC TAB 10 MG PO SCH (08:22)
[2021-01-31] MEDS: SINGULAIR TAB 10 MG PO SCH (08:22)
[2021-01-31] MEDS: SYNTHROID 50 mcg TAB PO SCH (08:23)
[2021-01-31] MEDS: PULMICORT NEB TX 0.5 MG NEB SCH ×2 (08:25→20:40)
[2021-01-31] MEDS ORDERED: NS 100 ML IV + SPIKE MINIBAG* 100 ML IV ONE (13:50)
[2021-01-31 15:12] VITALS: BMI 27.7
--- NOTE | 2021-01-31 15:18 | PCM.PROG ---
Progress Note Progress Note for Day of Date of Exam: 01/31/21 Subjective Subjective: Patient seen at bedside, no events overnight. She states she feels better. Her neck and face swelling has improved significantly. Her eyes look less puffy today. She reports eating well. Denies fever or chills, no N/V/D. Labs reviewed Imaging reviewed Sputum Cx: yeast, Klebsiella Plan: chest tube management as per Dr Cui, CXR pending. Continue Zosyn and Diflucan. Continue current meds. Wean O2 as tolerated. Continue solumedrol and nebs. Monitor AM labs/imaging. Past Medical Family Social History Past Med/Fam/Surg Hx: No changes since H&P Allergies: Allergies No Known Drug Allergies Allergy (Verified 03/21/19 09:43) Review of Systems ROS: No change since H&P Vital Signs and I&O's Vital Signs: Temperature 97.6 F Pulse Rate [Radial] 76 Pulse Rate 79 Respiratory Rate 16 Blood Pressure [Left Arm] 114/59 Blood Pressure [Right Arm] 158/92 Blood Pressure 147/69 O2 Sat by Pulse Oximetry 95 Intake and Output: Intake & Output 01/28/21 01/29/21 01/30/21 01/31/21 23:59 23:59 23:59 23:59 Intake Total 3610 / 3610 1365 / 1365 3001 / 3001 410 / 410 Output Total 1265 / 1265 2831 / 2831 3120 / 3120 900 / 900 Balance 2345 / 2345 -1466 / -1466 -119 / -119 -490 / -490 Physical Exam Oriented: Normal Eyes: Other (swollen, better) Throat: Normal Respiratory: Generalized, Diminished, Wheezes and OTHER (subcutanous emphysema on the right chest area improving ) Cardiovascular: Normal Auscultation: Bowel Sounds: Normal Tenderness: Normal Skin: Other (large sub cutaneous emphysema extending to the neck and face - improved) Musculoskeletal: Normal Psychiatric: Normal Mood Description: Calm Affect: Normal Speech Pattern: Clear Laboratory and Diagnostics Result Diagrams: 01/31/21 04:18 01/31/21 04:18 Labs: 01/28/21 15:40 Sputum - Expectorated Sputum Sputum Culture - Preliminary Klebsiella Pneumoniae 01/28/21 15:40 Sputum - Expectorated Sputum - Final Laboratory WBC 5.8 X10^3/uL (3.6-10.0) 01/31/21 04:18 RBC 4.28 X10^6/uL (3.5-5.4) 01/31/21 04:18 Hgb 12.0 g/dL (12.0-16.0) 01/31/21 04:18 Hct 35.5 % (36.0-47.0) L 01/31/21 04:18 MCV 83.0 fL (80.0-100.0) 01/31/21 04:18 MCH 28.1 pg (27.0-34.0) 01/31/21 04:18 MCHC 33.8 g/dL (33.0-35.0) 01/31/21 04:18 RDW 14.4 % (11.6-16.5) 01/31/21 04:18 Plt Count 252 X10^3/uL (150.0-450.0) 01/31/21 04:18 Plt Count Comment Adequate (ADEQUATE) 01/31/21 04:18 MPV 7.5 fL (7.4-11.0) 01/31/21 04:18 Neut % (Auto) 90.8 % (42.0-75.0) H 01/31/21 04:18 Lymph % (Auto) 5.7 % (21.0-51.0) L 01/31/21 04:18 [place] % (Auto) 3.4 % (0.0-13.0) 01/31/21 04:18 Eos % (Auto) 0.0 % (0.9-2.9) L 01/31/21 04:18 Baso % (Auto) 0.1 % (0.2-1.0) L 01/31/21 04:18 Neut # (Auto) 5.3 x10^3/uL (2.2-4.8) H 01/31/21 04:18 Lymph # (Auto) 0.3 X10^3/uL (1.3-2.9) L 01/31/21 04:18 [place] # (Auto) 0.2 x10^3/uL (0.3-0.8) L 01/31/21 04:18 Eos # (Auto) 0.0 x10^3/uL (0.0-0.2) 01/31/21 04:18 Baso # (Auto) 0.0 X10^3/uL (0.0-0.1) 01/31/21 04:18 Absolute Nucleated RBC 0.0 /100WBC 01/31/21 04:18 Total Counted 100 01/31/21 04:18 Neutrophils % (Manual) 94 % (39-76) H 01/31/21 04:18 Band Neutrophils % 2 % (0-10) 01/28/21 04:45 Lymphocytes % (Manual) 3 % (13-43) L 01/31/21 04:18 Monocytes % (Manual) 3 % (4-9) L 01/31/21 04:18 Plt Morphology Comment Normal (NORMAL) 01/31/21 04:18 RBC Morphology Normal (NORMAL) 01/31/21 04:18 Sample Site Rrad 01/24/21 23:10 ABG pH 7.330 (7.35-7.45) L 01/24/21 23:10 ABG pCO2 50.0 mmHg (35.0-45.0) H 01/24/21 23:10 ABG pO2 54.0 mmHg (80.0-100.0) L 01/24/21 23:10 ABG HCO3 26.4 mmol/L (22-26) H 01/24/21 23:10 ABG O2 Saturation 85.0 % (90-100) L 01/24/21 23:10 ABG Base Excess -0.1 mmol/L (-2.0-2.0) 01/24/21 23:10 Jose Miguel Test Pos 01/24/21 23:10 A-a Gradient 140.0 mmHg 01/24/21 23:10 FiO2 36.0 01/24/21 23:10 Blood Gas Comments Ramana abg well-mtf 01/24/21 23:10 Sodium 144 mmol/L (136-145) 01/31/21 04:18 Corrected Sodium 145 mmol/L (136-145) 01/31/21 04:18 Potassium 4.0 mmol/L (3.5-5.1) 01/31/21 04:18 Chloride 107 mmol/L (98-107) 01/31/21 04:18 Carbon Dioxide 32.7 mmol/L (21-32) H 01/31/21 04:18 BUN 23 mg/dL (7-18) H 01/31/21 04:18 Creatinine 0.86 mg/dL (0.55-1.02) 01/31/21 04:18 Est GFR (MDRD) Af Amer > 60 (>60) 01/31/21 04:18 Est GFR (MDRD) Non-Af > 60 (>60) 01/31/21 04:18 Glucose 129 mg/dL (65-99) H 01/31/21 04:18 Calcium 7.6 mg/dL (8.5-10.1) L 01/31/21 04:18 Corrected Calcium 8.8 mg/dL (8.5-10.1) 01/31/21 04:18 Total Bilirubin 0.30 mg/dL (0.2-1.0) 01/31/21 04:18 AST 22 Units/L (15-37) 01/31/21 04:18 ALT 44 Units/L (12-78) 01/31/21 04:18 Alkaline Phosphatase 53 Units/L (46-116) 01/31/21 04:18 Creatine Kinase 305 Units/L (26-192) H 01/25/21 20:45 CK-MB (CK-2) 17.6 ng/mL (0-4.0) H* 01/25/21 20:45 CK/CKMB % Calc 5.8 % (<4) 01/25/21 20:45 Troponin I 1.88 ng/mL (0-1.5) H* 01/25/21 20:45 Total Protein 4.7 g/dL (6.4-8.2) L 01/31/21 04:18 Albumin 2.5 g/dL (3.4-5.0) L 01/31/21 04:18 Globulin 2.2 g/dL (2.5-4.5) L 01/31/21 04:18 Albumin/Globulin Ratio 1.1 Ratio (1.1-2.1) 01/31/21 04:18 Specimen Type Catherized urine 01/25/21 03:35 Urine Color Yellow (YELLOW) 01/25/21 03:35 Urine Appearance Clear (CLEAR) 01/25/21 03:35 Urine pH 6.0 (5.0 - 8.0) 01/25/21 03:35 Ur Specific [place] 1.015 (1.000-1.030) 01/25/21 03:35 Urine Protein 2+ (NEGATIVE) 01/25/21 03:35 Urine Glucose (UA) Negative (NEGATIVE) 01/25/21 03:35 Urine Ketones Negative (NEGATIVE) 01/25/21 03:35 Urine Occult Blood Negative (NEGATIVE) 01/25/21 03:35 Urine Nitrite Negative (NEGATIVE) 01/25/21 03:35 Urine Bilirubin Negative (NEGATIVE) 01/25/21 03:35 Urine Urobilinogen Normal (NORMAL) 01/25/21 03:35 Ur Leukocyte Esterase Negative (NEGATIVE) 01/25/21 03:35 Urine RBC None seen /HPF (0-3) 01/25/21 03:35 Urine WBC None seen /HPF (0-5) 01/25/21 03:35 Ur Squamous Epith Cells Negative /HPF (NEGATIVE) 01/25/21 03:35 Urine Bacteria Trace /HPF (NEGATIVE) 01/25/21 03:35 Ur Culture Indicated? No/not indicated 01/25/21 03:35 Vancomycin Trough 18.9 ug/mL (15-20) 01/29/21 19:56 SARS-CoV-2 (PCR) Negative (NEGATIVE) 01/25/21 00:33 Influenza Type A (PCR) Negative (NEGATIVE) 01/25/21 00:33 Influenza Type B (PCR) Negative (NEGATIVE) 01/25/21 00:33 RSV (PCR) Negative (NEGATIVE) 01/25/21 00:33 Plan (1) Subcutaneous emphysema: Status: Acute Qualifiers: Encounter type: initial encounter Qualified Code(s): T79.7XXA - Traumatic subcutaneous emphysema, initial encounter (2) Chest tube in place: Status: Acute (3) Pneumothorax, right: Status: Acute (4) COPD exacerbation: Status: Acute (5) Weakness: Status: Acute (6) Acute renal injury: Status: Acute
--- NOTE | 2021-01-31 15:35 | RAD ---
HISTORYCHEST TUBE FOLLOW UP Relevant Clinical InformationSTUDYCHEST, 1 [id number]/06/2021 at 4:17 a.m.FINDINGSThe degree of subcutaneous emphysema appears grossly unchanged. The right-sided chest tube appears to have been advanced in the interval, with the tip overlying the right hilar structures. No significant pneumothorax or large effusion. The cardiac silhouette is stable.IMPRESSIONUnchanged subcutaneous emphysema without significant pneumothorax.Right-sided chest tube appears to have been advanced slightly.Electronically signed by: JEFRY MENDOZA (Jan 31, 2021 15:33:55)
--- NOTE | 2021-01-31 15:53 | RAD ---
HISTORYRIGHT PNEUMOTHORAX, COPD EXACERBATIONSTUDYCHEST, 1 [id number]/05/2021FINDINGSAbnormal opacity in the left and right lung is present. Some of the finding is probably due to the overlying soft tissues.No pneumothorax. No significant effusion.Heart size is normal. Vascular calcifications are present compatible with atherosclerosis.Extensive subcutaneous emphysema is present.A right chest tube is present with the tip at the right lateral hilum. EKG leads are noted.IMPRESSION1. No pneumothorax2. No short interval changeElectronically signed by: Nick Farmer (Jan 31, 2021 15:51:41)
[2021-01-31] MEDS: COLACE CAP 100 MG PO SCH (21:06)
[2021-01-31] MEDS: MILK OF MAGNESIA PO SCH (21:06)
[2021-02-01] MEDS: DUONEB 0.5 MG/3 MG (3 mL) NEB SCH ×6 (00:05→21:05)
[2021-02-01] MEDS: SOLU-Medrol 125 MG VIAL IVP SCH ×3 (01:28→16:32)
[2021-02-01] MEDS: ZOSYN VIAL 3.375 GRAMS 3.375 G in NS 100 ML IV + SPIKE MINIBAG* 100 ML IV SCH ×3 (05:06→21:12)
[2021-02-01] MEDS: NEURONTIN CAP 300 MG PO SCH ×3 (05:06→21:12)
[2021-02-01 08:17] LABS: HEMOGLOBIN 12.2 g/dL (12.0-16.0); MEAN PLATELET VOLUME 7.2 fL (7.4-11.0)
[2021-02-01 08:21] LABS: BASOPHILS % (AUTO) 0.3 % (0.2-1.0); EOSINOPHILS % (AUTO) 0.5 % (0.9-2.9); HEMATOCRIT 36.5 % (36.0-47.0); LYMPHOCYTES # (AUTO) 0.3 X10^3/uL (1.3-2.9); LYMPHOCYTES % (AUTO) 4.6 % (21.0-51.0); MEAN CORPUSCULAR HEMOGLOBIN 27.9 pg (27.0-34.0); MEAN CORPUSCULAR HGB CONC 33.5 g/dL (33.0-35.0); MEAN CORPUSCULAR VOLUME 83.3 fL (80.0-100.0); MONOCYTES # (AUTO) 0.2 x10^3/uL (0.3-0.8); NEUTROPHILS # (AUTO) 6.4 x10^3/uL (2.2-4.8); NEUTROPHILS % (AUTO) 91.6 % (42.0-75.0); PLATELET COUNT 263 X10^3/uL (150.0-450.0); RED BLOOD COUNT 4.38 X10^6/uL (3.5-5.4); RED CELL DISTRIBUTION WIDTH 14.4 % (11.6-16.5)
--- NOTE | 2021-02-01 08:23 | RAD ---
HISTORYFollow-up, cough, congestionSTUDYChest AP [id number]/06/2021FINDINGSPati ent is rotated to the left. Right basilar chest tube remains in place. Heart size is normal. Anu are normal. Lungs remain hyperinflated. No acute infiltrates or pleural effusions are identified. No definite recurrent right pneumothorax is identified. Diffuse subcutaneous emphysema is unchanged.IMPRESSIONNo significant change from the prior examinationElectronically signed by: ANA ROSA ANTOINE (Feb 01, 2021 08:22:44)
[2021-02-01 08:26] LABS: PLATELET MORPHOLOGY COMMENT NORMAL (NORMAL)
[2021-02-01 08:34] LABS: ALANINE AMINOTRANSFERASE 45 Units/L (12-78); ALBUMIN 2.6 g/dL (3.4-5.0); ALKALINE PHOSPHATASE 54 Units/L (46-116); ASPARTATE AMINO TRANSFERASE 22 Units/L (15-37); BLOOD UREA NITROGEN 20 mg/dL (7-18); CALCIUM 7.6 mg/dL (8.5-10.1); CARBON DIOXIDE 34.2 mmol/L (21-32); CHLORIDE 104 mmol/L (98-107); COR CA(FOR HYPOALB) 8.7 mg/dL (8.5-10.1); COR NA(FOR HYPERGLY) 144 mmol/L (136-145); CREATININE 0.94 mg/dL (0.55-1.02); SODIUM 142 mmol/L (136-145); TOTAL PROTEIN 4.9 g/dL (6.4-8.2); eGFR NON BLACK RACES > 60 (>60)
[2021-02-01] MEDS: LOVENOX INJ 40 MG SYR SC SCH (08:44)
[2021-02-01] MEDS: NORVASC TAB 10 MG PO SCH (08:44)
[2021-02-01] MEDS: LACRI-LUBE S.O.P. AFFEYE SCH ×2 (08:44→20:20)
[2021-02-01] MEDS: SYNTHROID 50 mcg TAB PO SCH (08:45)
[2021-02-01] MEDS: SINGULAIR TAB 10 MG PO SCH (08:45)
[2021-02-01] MEDS: PEPCID TAB 20 MG PO SCH (08:45)
--- NOTE | 2021-02-01 08:56 | DR.PROGNOT ---
Hospital Progress Notes - Progress Note for Day of: Progress Note Date: 02/01/21 - Chief Complaint Chief Complaint: no changes , no CP or SOB . chest Xray showed expanded RT lung. still having SE .. PO2 , RR BP are stable . pleural space is not sealed yet . - Past Medical Family Social History Past Med/Fam/Surg Hx: No changes since H&P Allergies: Allergies No Known Drug Allergies Allergy (Verified 03/21/19 09:43) - Review Of Systems ROS: No change since H&P - Vital Signs Vital Signs: Temperature 98.1 F Pulse Rate [Radial] 76 Pulse Rate 80 Respiratory Rate 20 Blood Pressure [Left Arm] 114/59 Blood Pressure [Right Arm] 158/92 Blood Pressure 145/67 O2 Sat by Pulse Oximetry 96 - Physical Exam Oriented: Normal Eyes: Other (swollen, better) Throat: Normal Respiratory: Generalized, Diminished, Wheezes, OTHER (subcutanous emphysema on the right chest area improving) Cardiovascular: Normal GI:Auscultation: Normal GI:Palpation: Normal GI: Tenderness: Normal Skin: Other (large sub cutaneous emphysema extending to the neck and face - improved) Musculoskeletal: Normal Psychiatric: Normal Mood Description: Calm Affect: Normal Speech Pattern: Clear - Laboratory and Diagnostics Result Diagrams: 02/01/21 08:06 02/01/21 08:06 Labs: 01/28/21 15:40 Sputum - Expectorated Sputum Sputum Culture - Preliminary Klebsiella Pneumoniae 01/28/21 15:40 Sputum - Expectorated Sputum - Final Laboratory WBC 7.0 X10^3/uL (3.6-10.0) 02/01/21 08:06 RBC 4.38 X10^6/uL (3.5-5.4) 02/01/21 08:06 Hgb 12.2 g/dL (12.0-16.0) 02/01/21 08:06 Hct 36.5 % (36.0-47.0) 02/01/21 08:06 MCV 83.3 fL (80.0-100.0) 02/01/21 08:06 MCH 27.9 pg (27.0-34.0) 02/01/21 08:06 MCHC 33.5 g/dL (33.0-35.0) 02/01/21 08:06 RDW 14.4 % (11.6-16.5) 02/01/21 08:06 Plt Count 263 X10^3/uL (150.0-450.0) 02/01/21 08:06 Plt Count Comment Adequate (ADEQUATE) 02/01/21 08:06 MPV 7.2 fL (7.4-11.0) L 02/01/21 08:06 Neut % (Auto) 91.6 % (42.0-75.0) H 02/01/21 08:06 Lymph % (Auto) 4.6 % (21.0-51.0) L 02/01/21 08:06 [place] % (Auto) 3.0 % (0.0-13.0) 02/01/21 08:06 Eos % (Auto) 0.5 % (0.9-2.9) L 02/01/21 08:06 Baso % (Auto) 0.3 % (0.2-1.0) 02/01/21 08:06 Neut # (Auto) 6.4 x10^3/uL (2.2-4.8) H 02/01/21 08:06 Lymph # (Auto) 0.3 X10^3/uL (1.3-2.9) L 02/01/21 08:06 [place] # (Auto) 0.2 x10^3/uL (0.3-0.8) L 02/01/21 08:06 Eos # (Auto) 0.0 x10^3/uL (0.0-0.2) 02/01/21 08:06 Baso # (Auto) 0.0 X10^3/uL (0.0-0.1) 02/01/21 08:06 Absolute Nucleated RBC 0.1 /100WBC 02/01/21 08:06 Total Counted 100 02/01/21 08:06 Neutrophils % (Manual) 92 % (39-76) H 02/01/21 08:06 Band Neutrophils % 2 % (0-10) 01/28/21 04:45 Lymphocytes % (Manual) 4 % (13-43) L 02/01/21 08:06 Monocytes % (Manual) 3 % (4-9) L 02/01/21 08:06 Eosinophils % (Manual) 1 % (0-6) 02/01/21 08:06 Plt Morphology Comment Normal (NORMAL) 02/01/21 08:06 RBC Morphology Normal (NORMAL) 02/01/21 08:06 Sample Site Rrad 01/24/21 23:10 ABG pH 7.330 (7.35-7.45) L 01/24/21 23:10 ABG pCO2 50.0 mmHg (35.0-45.0) H 01/24/21 23:10 ABG pO2 54.0 mmHg (80.0-100.0) L 01/24/21 23:10 ABG HCO3 26.4 mmol/L (22-26) H 01/24/21 23:10 ABG O2 Saturation 85.0 % (90-100) L 01/24/21 23:10 ABG Base Excess -0.1 mmol/L (-2.0-2.0) 01/24/21 23:10 Jose Miguel Test Pos 01/24/21 23:10 A-a Gradient 140.0 mmHg 01/24/21 23:10 FiO2 36.0 01/24/21 23:10 Blood Gas Comments Ramana abg well-mtf 01/24/21 23:10 Sodium 142 mmol/L (136-145) 02/01/21 08:06 Corrected Sodium 144 mmol/L (136-145) 02/01/21 08:06 Potassium 3.9 mmol/L (3.5-5.1) 02/01/21 08:06 Chloride 104 mmol/L (98-107) 02/01/21 08:06 Carbon Dioxide 34.2 mmol/L (21-32) H 02/01/21 08:06 BUN 20 mg/dL (7-18) H 02/01/21 08:06 Creatinine 0.94 mg/dL (0.55-1.02) 02/01/21 08:06 Est GFR (MDRD) Af Amer > 60 (>60) 02/01/21 08:06 Est GFR (MDRD) Non-Af > 60 (>60) 02/01/21 08:06 Glucose 164 mg/dL (65-99) H 02/01/21 08:06 Calcium 7.6 mg/dL (8.5-10.1) L 02/01/21 08:06 Corrected Calcium 8.7 mg/dL (8.5-10.1) 02/01/21 08:06 Total Bilirubin 0.30 mg/dL (0.2-1.0) 02/01/21 08:06 AST 22 Units/L (15-37) 02/01/21 08:06 ALT 45 Units/L (12-78) 02/01/21 08:06 Alkaline Phosphatase 54 Units/L (46-116) 02/01/21 08:06 Creatine Kinase 305 Units/L (26-192) H 01/25/21 20:45 CK-MB (CK-2) 17.6 ng/mL (0-4.0) H* 01/25/21 20:45 CK/CKMB % Calc 5.8 % (<4) 01/25/21 20:45 Troponin I 1.88 ng/mL (0-1.5) H* 01/25/21 20:45 Total Protein 4.9 g/dL (6.4-8.2) L 02/01/21 08:06 Albumin 2.6 g/dL (3.4-5.0) L 02/01/21 08:06 Globulin 2.3 g/dL (2.5-4.5) L 02/01/21 08:06 Albumin/Globulin Ratio 1.1 Ratio (1.1-2.1) 02/01/21 08:06 Specimen Type Catherized urine 01/25/21 03:35 Urine Color Yellow (YELLOW) 01/25/21 03:35 Urine Appearance Clear (CLEAR) 01/25/21 03:35 Urine pH 6.0 (5.0 - 8.0) 01/25/21 03:35 Ur Specific [place] 1.015 (1.000-1.030) 01/25/21 03:35 Urine Protein 2+ (NEGATIVE) 01/25/21 03:35 Urine Glucose (UA) Negative (NEGATIVE) 01/25/21 03:35 Urine Ketones Negative (NEGATIVE) 01/25/21 03:35 Urine Occult Blood Negative (NEGATIVE) 01/25/21 03:35 Urine Nitrite Negative (NEGATIVE) 01/25/21 03:35 Urine Bilirubin Negative (NEGATIVE) 01/25/21 03:35 Urine Urobilinogen Normal (NORMAL) 01/25/21 03:35 Ur Leukocyte Esterase Negative (NEGATIVE) 01/25/21 03:35 Urine RBC None seen /HPF (0-3) 01/25/21 03:35 Urine WBC None seen /HPF (0-5) 01/25/21 03:35 Ur Squamous Epith Cells Negative /HPF (NEGATIVE) 01/25/21 03:35 Urine Bacteria Trace /HPF (NEGATIVE) 01/25/21 03:35 Ur Culture Indicated? No/not indicated 01/25/21 03:35 Vancomycin Trough 18.9 ug/mL (15-20) 01/29/21 19:56 SARS-CoV-2 (PCR) Negative (NEGATIVE) 01/25/21 00:33 Influenza Type A (PCR) Negative (NEGATIVE) 01/25/21 00:33 Influenza Type B (PCR) Negative (NEGATIVE) 01/25/21 00:33 RSV (PCR) Negative (NEGATIVE) 01/25/21 00:33 - Assessment and Plan 1: large RT pneumothorax . corrected with chest tube . resolving SE . COPD with multiple blebs and emphysematous changes . chest tube is off suction now , just underseal . - Problem Patient Problems: Patient Problems Pneumothorax, right (Acute) J93.9 COPD exacerbation (Acute) J44.[address] (Acute) Z96.89
[2021-02-01] MEDS: DIFLUCAN 200 MG IV PREMIX* 200 MG/100 ML BAG IV SCH (09:29)
[2021-02-01] MEDS: PULMICORT NEB TX 0.5 MG NEB SCH ×2 (10:25→21:05)
--- NOTE | 2021-02-01 12:57 | PCM.PROG ---
Progress Note Progress Note for Day of Date of Exam: 02/01/21 Subjective Subjective: Patient seen at bedside, no events overnight. She states she feels better. Her neck and face swelling has improved significantly. Patient seen by Dr Cui this morning. She reports eating well. Denies fever or chills, no N/V/D. She did work with PT and sat in the chair. Labs reviewed Imaging reviewed Sputum Cx: yeast, Klebsiella Plan: chest tube management as per Dr Cui, CXR pending for this morning. Continue Zosyn and Diflucan. Continue current meds. Wean O2 as tolerated. Continue solumedrol and nebs. PT/OT as tolerated. Remove montalvo. Monitor AM labs/imaging. Past Medical Family Social History Past Med/Fam/Surg Hx: No changes since H&P Allergies: Allergies No Known Drug Allergies Allergy (Verified 03/21/19 09:43) Review of Systems ROS: No change since H&P Vital Signs and I&O's Vital Signs: Temperature 98.1 F Pulse Rate [Radial] 76 Pulse Rate 85 Respiratory Rate 28 Blood Pressure [Left Arm] 114/59 Blood Pressure [Right Arm] 158/92 Blood Pressure 163/94 O2 Sat by Pulse Oximetry 95 Intake and Output: Intake & Output 01/29/21 01/30/21 01/31/21 02/01/21 23:59 23:59 23:59 23:59 Intake Total 1365 / 1365 3001 / 3001 2898 / 2898 300 / 300 Output Total 2831 / 2831 3120 / 3120 2625 / 2625 650 / 650 Balance -1466 / -1466 -119 / -119 273 / 273 -350 / -350 Physical Exam Oriented: Normal Eyes: Other (swollen, better) Throat: Normal Respiratory: Generalized, Diminished, Wheezes and OTHER (subcutanous emphysema on the right chest area improving ) Cardiovascular: Normal Auscultation: Bowel Sounds: Normal Tenderness: Normal Skin: Other (large sub cutaneous emphysema extending to the neck and face - improved) Musculoskeletal: Normal Psychiatric: Normal Mood Description: Calm Affect: Normal Speech Pattern: Clear Laboratory and Diagnostics Result Diagrams: 02/01/21 08:06 02/01/21 08:06 Labs: 01/28/21 15:40 Sputum - Expectorated Sputum Sputum Culture - Preliminary Klebsiella Pneumoniae 01/28/21 15:40 Sputum - Expectorated Sputum - Final Laboratory WBC 7.0 X10^3/uL (3.6-10.0) 02/01/21 08:06 RBC 4.38 X10^6/uL (3.5-5.4) 02/01/21 08:06 Hgb 12.2 g/dL (12.0-16.0) 02/01/21 08:06 Hct 36.5 % (36.0-47.0) 02/01/21 08:06 MCV 83.3 fL (80.0-100.0) 02/01/21 08:06 MCH 27.9 pg (27.0-34.0) 02/01/21 08:06 MCHC 33.5 g/dL (33.0-35.0) 02/01/21 08:06 RDW 14.4 % (11.6-16.5) 02/01/21 08:06 Plt Count 263 X10^3/uL (150.0-450.0) 02/01/21 08:06 Plt Count Comment Adequate (ADEQUATE) 02/01/21 08:06 MPV 7.2 fL (7.4-11.0) L 02/01/21 08:06 Neut % (Auto) 91.6 % (42.0-75.0) H 02/01/21 08:06 Lymph % (Auto) 4.6 % (21.0-51.0) L 02/01/21 08:06 [place] % (Auto) 3.0 % (0.0-13.0) 02/01/21 08:06 Eos % (Auto) 0.5 % (0.9-2.9) L 02/01/21 08:06 Baso % (Auto) 0.3 % (0.2-1.0) 02/01/21 08:06 Neut # (Auto) 6.4 x10^3/uL (2.2-4.8) H 02/01/21 08:06 Lymph # (Auto) 0.3 X10^3/uL (1.3-2.9) L 02/01/21 08:06 [place] # (Auto) 0.2 x10^3/uL (0.3-0.8) L 02/01/21 08:06 Eos # (Auto) 0.0 x10^3/uL (0.0-0.2) 02/01/21 08:06 Baso # (Auto) 0.0 X10^3/uL (0.0-0.1) 02/01/21 08:06 Absolute Nucleated RBC 0.1 /100WBC 02/01/21 08:06 Total Counted 100 02/01/21 08:06 Neutrophils % (Manual) 92 % (39-76) H 02/01/21 08:06 Band Neutrophils % 2 % (0-10) 01/28/21 04:45 Lymphocytes % (Manual) 4 % (13-43) L 02/01/21 08:06 Monocytes % (Manual) 3 % (4-9) L 02/01/21 08:06 Eosinophils % (Manual) 1 % (0-6) 02/01/21 08:06 Plt Morphology Comment Normal (NORMAL) 02/01/21 08:06 RBC Morphology Normal (NORMAL) 02/01/21 08:06 Sample Site Rrad 01/24/21 23:10 ABG pH 7.330 (7.35-7.45) L 01/24/21 23:10 ABG pCO2 50.0 mmHg (35.0-45.0) H 01/24/21 23:10 ABG pO2 54.0 mmHg (80.0-100.0) L 01/24/21 23:10 ABG HCO3 26.4 mmol/L (22-26) H 01/24/21 23:10 ABG O2 Saturation 85.0 % (90-100) L 01/24/21 23:10 ABG Base Excess -0.1 mmol/L (-2.0-2.0) 01/24/21 23:10 Jose Miguel Test Pos 01/24/21 23:10 A-a Gradient 140.0 mmHg 01/24/21 23:10 FiO2 36.0 01/24/21 23:10 Blood Gas Comments Ramana abg well-mtf 01/24/21 23:10 Sodium 142 mmol/L (136-145) 02/01/21 08:06 Corrected Sodium 144 mmol/L (136-145) 02/01/21 08:06 Potassium 3.9 mmol/L (3.5-5.1) 02/01/21 08:06 Chloride 104 mmol/L (98-107) 02/01/21 08:06 Carbon Dioxide 34.2 mmol/L (21-32) H 02/01/21 08:06 BUN 20 mg/dL (7-18) H 02/01/21 08:06 Creatinine 0.94 mg/dL (0.55-1.02) 02/01/21 08:06 Est GFR (MDRD) Af Amer > 60 (>60) 02/01/21 08:06 Est GFR (MDRD) Non-Af > 60 (>60) 02/01/21 08:06 Glucose 164 mg/dL (65-99) H 02/01/21 08:06 Calcium 7.6 mg/dL (8.5-10.1) L 02/01/21 08:06 Corrected Calcium 8.7 mg/dL (8.5-10.1) 02/01/21 08:06 Total Bilirubin 0.30 mg/dL (0.2-1.0) 02/01/21 08:06 AST 22 Units/L (15-37) 02/01/21 08:06 ALT 45 Units/L (12-78) 02/01/21 08:06 Alkaline Phosphatase 54 Units/L (46-116) 02/01/21 08:06 Creatine Kinase 305 Units/L (26-192) H 01/25/21 20:45 CK-MB (CK-2) 17.6 ng/mL (0-4.0) H* 01/25/21 20:45 CK/CKMB % Calc 5.8 % (<4) 01/25/21 20:45 Troponin I 1.88 ng/mL (0-1.5) H* 01/25/21 20:45 Total Protein 4.9 g/dL (6.4-8.2) L 02/01/21 08:06 Albumin 2.6 g/dL (3.4-5.0) L 02/01/21 08:06 Globulin 2.3 g/dL (2.5-4.5) L 02/01/21 08:06 Albumin/Globulin Ratio 1.1 Ratio (1.1-2.1) 02/01/21 08:06 Specimen Type Catherized urine 01/25/21 03:35 Urine Color Yellow (YELLOW) 01/25/21 03:35 Urine Appearance Clear (CLEAR) 01/25/21 03:35 Urine pH 6.0 (5.0 - 8.0) 01/25/21 03:35 Ur Specific [place] 1.015 (1.000-1.030) 01/25/21 03:35 Urine Protein 2+ (NEGATIVE) 01/25/21 03:35 Urine Glucose (UA) Negative (NEGATIVE) 01/25/21 03:35 Urine Ketones Negative (NEGATIVE) 01/25/21 03:35 Urine Occult Blood Negative (NEGATIVE) 01/25/21 03:35 Urine Nitrite Negative (NEGATIVE) 01/25/21 03:35 Urine Bilirubin Negative (NEGATIVE) 01/25/21 03:35 Urine Urobilinogen Normal (NORMAL) 01/25/21 03:35 Ur Leukocyte Esterase Negative (NEGATIVE) 01/25/21 03:35 Urine RBC None seen /HPF (0-3) 01/25/21 03:35 Urine WBC None seen /HPF (0-5) 01/25/21 03:35 Ur Squamous Epith Cells Negative /HPF (NEGATIVE) 01/25/21 03:35 Urine Bacteria Trace /HPF (NEGATIVE) 01/25/21 03:35 Ur Culture Indicated? No/not indicated 01/25/21 03:35 Vancomycin Trough 18.9 ug/mL (15-20) 01/29/21 19:56 SARS-CoV-2 (PCR) Negative (NEGATIVE) 01/25/21 00:33 Influenza Type A (PCR) Negative (NEGATIVE) 01/25/21 00:33 Influenza Type B (PCR) Negative (NEGATIVE) 01/25/21 00:33 RSV (PCR) Negative (NEGATIVE) 01/25/21 00:33 Plan (1) Subcutaneous emphysema: Status: Acute Qualifiers: Encounter type: initial encounter Qualified Code(s): T79.7XXA - Traumatic subcutaneous emphysema, initial encounter (2) Chest tube in place: Status: Acute (3) Pneumothorax, right: Status: Acute (4) COPD exacerbation: Status: Acute (5) Weakness: Status: Acute (6) Acute renal injury: Status: Acute
--- NOTE | 2021-02-01 13:47 | DR.ADDEND ---
ADDENDUM Addendum Addendum: Progress Note 01/30/21: Date of exam 01/30/21
--- NOTE | 2021-02-01 14:06 | PCM.PROG ---
Progress Note Progress Note for Day of Date of Exam: 01/28/21 Subjective Subjective: Patient seen at bedside, no events overnight. She states she feels better. Her neck and face swelling is still present and extensive. Patient seen by Dr Cui this morning. She reports eating well. Denies fever or chills, no N/V/D. She reports some cough. Labs reviewed Imaging reviewed Plan: chest tube management as per Dr Cui, CXR pending for this morning. Continue Zosyn and Diflucan. Continue current meds. Wean O2 as tolerated. Continue solumedrol and nebs. Monitor AM labs/imaging. Past Medical Family Social History Past Med/Fam/Surg Hx: No changes since H&P Allergies: Allergies No Known Drug Allergies Allergy (Verified 03/21/19 09:43) Review of Systems ROS: No change since H&P Vital Signs and I&O's Vital Signs: Temperature 98.1 F Pulse Rate [Radial] 76 Pulse Rate 85 Respiratory Rate 28 Blood Pressure [Left Arm] 114/59 Blood Pressure [Right Arm] 158/92 Blood Pressure 163/94 O2 Sat by Pulse Oximetry 95 Intake and Output: Intake & Output 01/29/21 01/30/21 01/31/21 02/01/21 23:59 23:59 23:59 23:59 Intake Total 1365 / 1365 3001 / 3001 2898 / 2898 300 / 300 Output Total 2831 / 2831 3120 / 3120 2625 / 2625 650 / 650 Balance -1466 / -1466 -119 / -119 273 / 273 -350 / -350 Physical Exam Oriented: Normal Eyes: Other (swollen) Throat: Normal Respiratory: Generalized, Diminished, Wheezes and OTHER (subcutanous emphysema on the right chest area improving ) Cardiovascular: Normal Auscultation: Bowel Sounds: Normal Tenderness: Normal Skin: Other (large sub cutaneous emphysema extending to the neck and face ) Musculoskeletal: Normal Psychiatric: Normal Mood Description: Calm Affect: Normal Speech Pattern: Clear Laboratory and Diagnostics Result Diagrams: 02/01/21 08:06 02/01/21 08:06 Labs: 01/28/21 15:40 Sputum - Expectorated Sputum Sputum Culture - Preliminary Klebsiella Pneumoniae 01/28/21 15:40 Sputum - Expectorated Sputum - Final Laboratory WBC 7.0 X10^3/uL (3.6-10.0) 02/01/21 08:06 RBC 4.38 X10^6/uL (3.5-5.4) 02/01/21 08:06 Hgb 12.2 g/dL (12.0-16.0) 02/01/21 08:06 Hct 36.5 % (36.0-47.0) 02/01/21 08:06 MCV 83.3 fL (80.0-100.0) 02/01/21 08:06 MCH 27.9 pg (27.0-34.0) 02/01/21 08:06 MCHC 33.5 g/dL (33.0-35.0) 02/01/21 08:06 RDW 14.4 % (11.6-16.5) 02/01/21 08:06 Plt Count 263 X10^3/uL (150.0-450.0) 02/01/21 08:06 Plt Count Comment Adequate (ADEQUATE) 02/01/21 08:06 MPV 7.2 fL (7.4-11.0) L 02/01/21 08:06 Neut % (Auto) 91.6 % (42.0-75.0) H 02/01/21 08:06 Lymph % (Auto) 4.6 % (21.0-51.0) L 02/01/21 08:06 [place] % (Auto) 3.0 % (0.0-13.0) 02/01/21 08:06 Eos % (Auto) 0.5 % (0.9-2.9) L 02/01/21 08:06 Baso % (Auto) 0.3 % (0.2-1.0) 02/01/21 08:06 Neut # (Auto) 6.4 x10^3/uL (2.2-4.8) H 02/01/21 08:06 Lymph # (Auto) 0.3 X10^3/uL (1.3-2.9) L 02/01/21 08:06 [place] # (Auto) 0.2 x10^3/uL (0.3-0.8) L 02/01/21 08:06 Eos # (Auto) 0.0 x10^3/uL (0.0-0.2) 02/01/21 08:06 Baso # (Auto) 0.0 X10^3/uL (0.0-0.1) 02/01/21 08:06 Absolute Nucleated RBC 0.1 /100WBC 02/01/21 08:06 Total Counted 100 02/01/21 08:06 Neutrophils % (Manual) 92 % (39-76) H 02/01/21 08:06 Band Neutrophils % 2 % (0-10) 01/28/21 04:45 Lymphocytes % (Manual) 4 % (13-43) L 02/01/21 08:06 Monocytes % (Manual) 3 % (4-9) L 02/01/21 08:06 Eosinophils % (Manual) 1 % (0-6) 02/01/21 08:06 Plt Morphology Comment Normal (NORMAL) 02/01/21 08:06 RBC Morphology Normal (NORMAL) 02/01/21 08:06 Sample Site Rrad 01/24/21 23:10 ABG pH 7.330 (7.35-7.45) L 01/24/21 23:10 ABG pCO2 50.0 mmHg (35.0-45.0) H 01/24/21 23:10 ABG pO2 54.0 mmHg (80.0-100.0) L 01/24/21 23:10 ABG HCO3 26.4 mmol/L (22-26) H 01/24/21 23:10 ABG O2 Saturation 85.0 % (90-100) L 01/24/21 23:10 ABG Base Excess -0.1 mmol/L (-2.0-2.0) 01/24/21 23:10 Jose Miguel Test Pos 01/24/21 23:10 A-a Gradient 140.0 mmHg 01/24/21 23:10 FiO2 36.0 01/24/21 23:10 Blood Gas Comments Ramana abg well-mtf 01/24/21 23:10 Sodium 142 mmol/L (136-145) 02/01/21 08:06 Corrected Sodium 144 mmol/L (136-145) 02/01/21 08:06 Potassium 3.9 mmol/L (3.5-5.1) 02/01/21 08:06 Chloride 104 mmol/L (98-107) 02/01/21 08:06 Carbon Dioxide 34.2 mmol/L (21-32) H 02/01/21 08:06 BUN 20 mg/dL (7-18) H 02/01/21 08:06 Creatinine 0.94 mg/dL (0.55-1.02) 02/01/21 08:06 Est GFR (MDRD) Af Amer > 60 (>60) 02/01/21 08:06 Est GFR (MDRD) Non-Af > 60 (>60) 02/01/21 08:06 Glucose 164 mg/dL (65-99) H 02/01/21 08:06 Calcium 7.6 mg/dL (8.5-10.1) L 02/01/21 08:06 Corrected Calcium 8.7 mg/dL (8.5-10.1) 02/01/21 08:06 Total Bilirubin 0.30 mg/dL (0.2-1.0) 02/01/21 08:06 AST 22 Units/L (15-37) 02/01/21 08:06 ALT 45 Units/L (12-78) 02/01/21 08:06 Alkaline Phosphatase 54 Units/L (46-116) 02/01/21 08:06 Creatine Kinase 305 Units/L (26-192) H 01/25/21 20:45 CK-MB (CK-2) 17.6 ng/mL (0-4.0) H* 01/25/21 20:45 CK/CKMB % Calc 5.8 % (<4) 01/25/21 20:45 Troponin I 1.88 ng/mL (0-1.5) H* 01/25/21 20:45 Total Protein 4.9 g/dL (6.4-8.2) L 02/01/21 08:06 Albumin 2.6 g/dL (3.4-5.0) L 02/01/21 08:06 Globulin 2.3 g/dL (2.5-4.5) L 02/01/21 08:06 Albumin/Globulin Ratio 1.1 Ratio (1.1-2.1) 02/01/21 08:06 Specimen Type Catherized urine 01/25/21 03:35 Urine Color Yellow (YELLOW) 01/25/21 03:35 Urine Appearance Clear (CLEAR) 01/25/21 03:35 Urine pH 6.0 (5.0 - 8.0) 01/25/21 03:35 Ur Specific [place] 1.015 (1.000-1.030) 01/25/21 03:35 Urine Protein 2+ (NEGATIVE) 01/25/21 03:35 Urine Glucose (UA) Negative (NEGATIVE) 01/25/21 03:35 Urine Ketones Negative (NEGATIVE) 01/25/21 03:35 Urine Occult Blood Negative (NEGATIVE) 01/25/21 03:35 Urine Nitrite Negative (NEGATIVE) 01/25/21 03:35 Urine Bilirubin Negative (NEGATIVE) 01/25/21 03:35 Urine Urobilinogen Normal (NORMAL) 01/25/21 03:35 Ur Leukocyte Esterase Negative (NEGATIVE) 01/25/21 03:35 Urine RBC None seen /HPF (0-3) 01/25/21 03:35 Urine WBC None seen /HPF (0-5) 01/25/21 03:35 Ur Squamous Epith Cells Negative /HPF (NEGATIVE) 01/25/21 03:35 Urine Bacteria Trace /HPF (NEGATIVE) 01/25/21 03:35 Ur Culture Indicated? No/not indicated 01/25/21 03:35 Vancomycin Trough 18.9 ug/mL (15-20) 01/29/21 19:56 SARS-CoV-2 (PCR) Negative (NEGATIVE) 01/25/21 00:33 Influenza Type A (PCR) Negative (NEGATIVE) 01/25/21 00:33 Influenza Type B (PCR) Negative (NEGATIVE) 01/25/21 00:33 RSV (PCR) Negative (NEGATIVE) 01/25/21 00:33 Plan (1) Subcutaneous emphysema: Status: Acute Qualifiers: Encounter type: initial encounter Qualified Code(s): T79.7XXA - Traumatic subcutaneous emphysema, initial encounter (2) Chest tube in place: Status: Acute (3) Pneumothorax, right: Status: Acute (4) COPD exacerbation: Status: Acute (5) Weakness: Status: Acute (6) Acute renal injury: Status: Acute
[2021-02-01] MEDS: COLACE CAP 100 MG PO SCH (20:20)
[2021-02-01] MEDS: MILK OF MAGNESIA PO SCH (20:20)
[2021-02-02] MEDS: SOLU-Medrol 125 MG VIAL IVP SCH ×3 (01:22→17:53)
[2021-02-02] MEDS: DUONEB 0.5 MG/3 MG (3 mL) NEB SCH ×6 (01:35→20:40)
[2021-02-02] MEDS: NS 250 ML IV 250 ML IV PRN (02:23)
[2021-02-02] MEDS: NEURONTIN CAP 300 MG PO SCH ×3 (05:18→21:27)
[2021-02-02] MEDS: ZOSYN VIAL 3.375 GRAMS 3.375 G in NS 100 ML IV + SPIKE MINIBAG* 100 ML IV SCH ×3 (05:18→21:13)
--- NOTE | 2021-02-02 07:16 | RAD ---
HISTORYF/U RT PNEUMOTHORAXSTUDYCHEST, 1 [id number]/07/2021.TECHNIQUEAP chest, 2 images.FINDINGSCardiac and mediastinal contours are normal in size. No significant change in scattered bilateral airspace opacities. Right thoracostomy tube in situ in stable position. No discernible pleural effusion or pneumothorax. Severe subcutaneous emphysema in the neck and chest appears similar with extension most likely into the mediastinum.IMPRESSIONNo significant change.Electronically signed by: Jose L Soto (Feb 02, 2021 07:15:05)
--- NOTE | 2021-02-02 09:06 | PCM.PROG ---
Progress Note Progress Note for Day of Date of Exam: 02/02/21 Subjective Subjective: Patient seen at bedside, no events overnight. She states she is doing well. She did work with PT yesterday, sat in the chair and has been ambulating around the room. She does reports slightly more swelling in the right chest and eyes this morning. She remains on 2L NC, does not appear to be in any distress. Labs reviewed Imaging reviewed Plan: chest tube management as per Dr Cui, CXR does not show any pneumothorax, does show increase in subcutaneous emphysema. Continue Zosyn and Diflucan. Continue current meds. Wean O2 as tolerated. Continue solumedrol and nebs. Monitor AM labs/imaging. Past Medical Family Social History Past Med/Fam/Surg Hx: No changes since H&P Allergies: Allergies No Known Drug Allergies Allergy (Verified 03/21/19 09:43) Review of Systems ROS: No change since H&P Vital Signs and I&O's Vital Signs: Temperature 98.2 F Pulse Rate [Radial] 76 Pulse Rate 84 Respiratory Rate 21 Blood Pressure [Left Arm] 114/59 Blood Pressure [Right Arm] 158/92 Blood Pressure 152/70 O2 Sat by Pulse Oximetry 96 Intake and Output: Intake & Output 01/30/21 01/31/21 02/01/21 02/02/21 23:59 23:59 23:59 23:59 Intake Total 3001 / 3001 2898 / 2898 1925 / 1925 220 / 220 Output Total 3120 / 3120 2625 / 2625 1150 / 1150 Balance -119 / -119 273 / 273 775 / 775 220 / 220 Physical Exam Oriented: Normal Eyes: Other (slightly increased swelling from yesterday ) Throat: Normal Respiratory: Generalized, Diminished, Wheezes, Rales and OTHER (subcutanous emphysema on the right chest appears more ) Cardiovascular: Normal Auscultation: Bowel Sounds: Normal Tenderness: Normal Skin: Other (large sub cutaneous emphysema extending to the neck and face ) Musculoskeletal: Normal Psychiatric: Normal Mood Description: Calm Affect: Normal Speech Pattern: Clear Laboratory and Diagnostics Result Diagrams: 02/01/21 08:06 02/01/21 08:06 Labs: 01/28/21 15:40 Sputum - Expectorated Sputum Sputum Culture - Preliminary Klebsiella Pneumoniae 01/28/21 15:40 Sputum - Expectorated Sputum - Final Laboratory WBC 7.0 X10^3/uL (3.6-10.0) 02/01/21 08:06 RBC 4.38 X10^6/uL (3.5-5.4) 02/01/21 08:06 Hgb 12.2 g/dL (12.0-16.0) 02/01/21 08:06 Hct 36.5 % (36.0-47.0) 02/01/21 08:06 MCV 83.3 fL (80.0-100.0) 02/01/21 08:06 MCH 27.9 pg (27.0-34.0) 02/01/21 08:06 MCHC 33.5 g/dL (33.0-35.0) 02/01/21 08:06 RDW 14.4 % (11.6-16.5) 02/01/21 08:06 Plt Count 263 X10^3/uL (150.0-450.0) 02/01/21 08:06 Plt Count Comment Adequate (ADEQUATE) 02/01/21 08:06 MPV 7.2 fL (7.4-11.0) L 02/01/21 08:06 Neut % (Auto) 91.6 % (42.0-75.0) H 02/01/21 08:06 Lymph % (Auto) 4.6 % (21.0-51.0) L 02/01/21 08:06 [place] % (Auto) 3.0 % (0.0-13.0) 02/01/21 08:06 Eos % (Auto) 0.5 % (0.9-2.9) L 02/01/21 08:06 Baso % (Auto) 0.3 % (0.2-1.0) 02/01/21 08:06 Neut # (Auto) 6.4 x10^3/uL (2.2-4.8) H 02/01/21 08:06 Lymph # (Auto) 0.3 X10^3/uL (1.3-2.9) L 02/01/21 08:06 [place] # (Auto) 0.2 x10^3/uL (0.3-0.8) L 02/01/21 08:06 Eos # (Auto) 0.0 x10^3/uL (0.0-0.2) 02/01/21 08:06 Baso # (Auto) 0.0 X10^3/uL (0.0-0.1) 02/01/21 08:06 Absolute Nucleated RBC 0.1 /100WBC 02/01/21 08:06 Total Counted 100 02/01/21 08:06 Neutrophils % (Manual) 92 % (39-76) H 02/01/21 08:06 Band Neutrophils % 2 % (0-10) 01/28/21 04:45 Lymphocytes % (Manual) 4 % (13-43) L 02/01/21 08:06 Monocytes % (Manual) 3 % (4-9) L 02/01/21 08:06 Eosinophils % (Manual) 1 % (0-6) 02/01/21 08:06 Plt Morphology Comment Normal (NORMAL) 02/01/21 08:06 RBC Morphology Normal (NORMAL) 02/01/21 08:06 Sample Site Rrad 01/24/21 23:10 ABG pH 7.330 (7.35-7.45) L 01/24/21 23:10 ABG pCO2 50.0 mmHg (35.0-45.0) H 01/24/21 23:10 ABG pO2 54.0 mmHg (80.0-100.0) L 01/24/21 23:10 ABG HCO3 26.4 mmol/L (22-26) H 01/24/21 23:10 ABG O2 Saturation 85.0 % (90-100) L 01/24/21 23:10 ABG Base Excess -0.1 mmol/L (-2.0-2.0) 01/24/21 23:10 Jose Miguel Test Pos 01/24/21 23:10 A-a Gradient 140.0 mmHg 01/24/21 23:10 FiO2 36.0 01/24/21 23:10 Blood Gas Comments Ramana abg well-mtf 01/24/21 23:10 Sodium 142 mmol/L (136-145) 02/01/21 08:06 Corrected Sodium 144 mmol/L (136-145) 02/01/21 08:06 Potassium 3.9 mmol/L (3.5-5.1) 02/01/21 08:06 Chloride 104 mmol/L (98-107) 02/01/21 08:06 Carbon Dioxide 34.2 mmol/L (21-32) H 02/01/21 08:06 BUN 20 mg/dL (7-18) H 02/01/21 08:06 Creatinine 0.94 mg/dL (0.55-1.02) 02/01/21 08:06 Est GFR (MDRD) Af Amer > 60 (>60) 02/01/21 08:06 Est GFR (MDRD) Non-Af > 60 (>60) 02/01/21 08:06 Glucose 164 mg/dL (65-99) H 02/01/21 08:06 Calcium 7.6 mg/dL (8.5-10.1) L 02/01/21 08:06 Corrected Calcium 8.7 mg/dL (8.5-10.1) 02/01/21 08:06 Total Bilirubin 0.30 mg/dL (0.2-1.0) 02/01/21 08:06 AST 22 Units/L (15-37) 02/01/21 08:06 ALT 45 Units/L (12-78) 02/01/21 08:06 Alkaline Phosphatase 54 Units/L (46-116) 02/01/21 08:06 Creatine Kinase 305 Units/L (26-192) H 01/25/21 20:45 CK-MB (CK-2) 17.6 ng/mL (0-4.0) H* 01/25/21 20:45 CK/CKMB % Calc 5.8 % (<4) 01/25/21 20:45 Troponin I 1.88 ng/mL (0-1.5) H* 01/25/21 20:45 Total Protein 4.9 g/dL (6.4-8.2) L 02/01/21 08:06 Albumin 2.6 g/dL (3.4-5.0) L 02/01/21 08:06 Globulin 2.3 g/dL (2.5-4.5) L 02/01/21 08:06 Albumin/Globulin Ratio 1.1 Ratio (1.1-2.1) 02/01/21 08:06 Specimen Type Catherized urine 01/25/21 03:35 Urine Color Yellow (YELLOW) 01/25/21 03:35 Urine Appearance Clear (CLEAR) 01/25/21 03:35 Urine pH 6.0 (5.0 - 8.0) 01/25/21 03:35 Ur Specific [place] 1.015 (1.000-1.030) 01/25/21 03:35 Urine Protein 2+ (NEGATIVE) 01/25/21 03:35 Urine Glucose (UA) Negative (NEGATIVE) 01/25/21 03:35 Urine Ketones Negative (NEGATIVE) 01/25/21 03:35 Urine Occult Blood Negative (NEGATIVE) 01/25/21 03:35 Urine Nitrite Negative (NEGATIVE) 01/25/21 03:35 Urine Bilirubin Negative (NEGATIVE) 01/25/21 03:35 Urine Urobilinogen Normal (NORMAL) 01/25/21 03:35 Ur Leukocyte Esterase Negative (NEGATIVE) 01/25/21 03:35 Urine RBC None seen /HPF (0-3) 01/25/21 03:35 Urine WBC None seen /HPF (0-5) 01/25/21 03:35 Ur Squamous Epith Cells Negative /HPF (NEGATIVE) 01/25/21 03:35 Urine Bacteria Trace /HPF (NEGATIVE) 01/25/21 03:35 Ur Culture Indicated? No/not indicated 01/25/21 03:35 Vancomycin Trough 18.9 ug/mL (15-20) 01/29/21 19:56 SARS-CoV-2 (PCR) Negative (NEGATIVE) 01/25/21 00:33 Influenza Type A (PCR) Negative (NEGATIVE) 01/25/21 00:33 Influenza Type B (PCR) Negative (NEGATIVE) 01/25/21 00:33 RSV (PCR) Negative (NEGATIVE) 01/25/21 00:33 Plan (1) Subcutaneous emphysema: Status: Acute Qualifiers: Encounter type: initial encounter Qualified Code(s): T79.7XXA - Traumatic subcutaneous emphysema, initial encounter (2) Chest tube in place: Status: Acute (3) Pneumothorax, right: Status: Acute (4) COPD exacerbation: Status: Acute (5) Weakness: Status: Acute (6) Acute renal injury: Status: Acute
[2021-02-02] MEDS: NORVASC TAB 10 MG PO SCH (09:32)
[2021-02-02] MEDS: SINGULAIR TAB 10 MG PO SCH (09:32)
[2021-02-02] MEDS: LOVENOX INJ 40 MG SYR SC SCH (09:32)
[2021-02-02] MEDS: PEPCID TAB 20 MG PO SCH (09:32)
[2021-02-02] MEDS: SYNTHROID 50 mcg TAB PO SCH (09:32)
[2021-02-02] MEDS: LACRI-LUBE S.O.P. AFFEYE SCH ×2 (09:35→21:13)
[2021-02-02] MEDS: DIFLUCAN 200 MG IV PREMIX* 200 MG/100 ML BAG IV SCH (09:48)
[2021-02-02] MEDS: PULMICORT NEB TX 0.5 MG NEB SCH ×2 (09:50→20:40)
--- NOTE | 2021-02-02 12:19 | RAD ---
HISTORYCHEST TUBE UNCLAMPED AND THEN REMOVEDSTUDYCHEST x-ray, 1 VIEWCOMPARISONX-ray 02/02/2021FINDINGSInitially the right-sided chest tube is clamped. No pneumothorax is seen. The chest tube is in removed and no pneumothorax is seen. There is persistent free air in the chest wall on both images and pneumomediastinum. Heart is normal in size. Likely bilateral lung infiltrates are similar to prior exam.IMPRESSIONNo pneumothorax is seen but there is persistent pneumomediastinum and prominent free air in the chest wall. Lung infiltrates are similar to prior study.Electronically signed by: Conner Das (Feb 02, 2021 12:18:08)
--- NOTE | 2021-02-02 14:15 | RAD ---
CHEST, 1 VIEWHISTORY: removal of chest tubeStudy: Single view of the chest.Comparison:February 02, 2021Findings:The cardiomediastinal silhouette is normal. No change in the appearance of severe subcutaneous emphysema. Right-sided chest tube has been removed. No definite pneumothorax.IMPRESSION:1. Removal of right-sided chest tube without definite residual pneumothorax. Otherwise no change.Electronically signed by: DONNA RITCHIE (Feb 02, 2021 14:13:36)
[2021-02-02] MEDS: MILK OF MAGNESIA PO SCH (21:13)
[2021-02-02] MEDS: COLACE CAP 100 MG PO SCH (21:27)
[2021-02-03] MEDS: SOLU-Medrol 125 MG VIAL IVP SCH ×3 (01:46→17:28)
[2021-02-03] MEDS: ZOSYN VIAL 3.375 GRAMS 3.375 G in NS 100 ML IV + SPIKE MINIBAG* 100 ML IV SCH ×3 (05:16→21:12)
[2021-02-03] MEDS: NEURONTIN CAP 300 MG PO SCH ×3 (05:17→21:12)
[2021-02-03] MEDS: DUONEB 0.5 MG/3 MG (3 mL) NEB SCH ×6 (05:33→21:00)
[2021-02-03] MEDS: LACRI-LUBE S.O.P. AFFEYE SCH ×2 (08:52→21:12)
[2021-02-03] MEDS: DIFLUCAN 200 MG IV PREMIX* 200 MG/100 ML BAG IV SCH (08:52)
[2021-02-03] MEDS: LOVENOX INJ 40 MG SYR SC SCH (08:53)
[2021-02-03] MEDS: NORVASC TAB 10 MG PO SCH (08:53)
[2021-02-03] MEDS: PEPCID TAB 20 MG PO SCH (08:53)
[2021-02-03] MEDS: SINGULAIR TAB 10 MG PO SCH (08:54)
[2021-02-03] MEDS: SYNTHROID 50 mcg TAB PO SCH (08:54)
--- NOTE | 2021-02-03 08:55 | DR.PROGNOT ---
Hospital Progress Notes - Progress Note for Day of: Progress Note Date: 02/03/21 - Chief Complaint Chief Complaint: chest tube was removed yesterday . repeated chest X ray showed expanded lung without residual pneumothorax . has extensive SE but no SOB , no chest pain , all VS are stable .. - Past Medical Family Social History Past Med/Fam/Surg Hx: No changes since H&P Allergies: Allergies No Known Drug Allergies Allergy (Verified 03/21/19 09:43) - Review Of Systems ROS: No change since H&P - Vital Signs Vital Signs: Temperature 98.4 F Pulse Rate [Radial] 76 Pulse Rate 88 Respiratory Rate 20 Blood Pressure [Left Arm] 114/59 Blood Pressure [Right Arm] 158/92 Blood Pressure 167/82 O2 Sat by Pulse Oximetry 94 - Physical Exam Oriented: Normal Eyes: Other (slightly increased swelling from yesterday) Throat: Normal Respiratory: Generalized, Diminished, Wheezes, Rales, OTHER (subcutanous emphysema on the right chest appears more) Cardiovascular: Normal GI:Auscultation: Normal GI:Palpation: Normal GI: Tenderness: Normal Skin: Other (large sub cutaneous emphysema extending to the neck and face) Musculoskeletal: Normal Psychiatric: Normal Mood Description: Calm Affect: Normal Speech Pattern: Clear, Appropriate - Laboratory and Diagnostics Result Diagrams: 02/01/21 08:06 02/01/21 08:06 Labs: 01/28/21 15:40 Sputum - Expectorated Sputum Sputum Culture - Preliminary Klebsiella Pneumoniae 01/28/21 15:40 Sputum - Expectorated Sputum - Final Laboratory WBC 7.0 X10^3/uL (3.6-10.0) 02/01/21 08:06 RBC 4.38 X10^6/uL (3.5-5.4) 02/01/21 08:06 Hgb 12.2 g/dL (12.0-16.0) 02/01/21 08:06 Hct 36.5 % (36.0-47.0) 02/01/21 08:06 MCV 83.3 fL (80.0-100.0) 02/01/21 08:06 MCH 27.9 pg (27.0-34.0) 02/01/21 08:06 MCHC 33.5 g/dL (33.0-35.0) 02/01/21 08:06 RDW 14.4 % (11.6-16.5) 02/01/21 08:06 Plt Count 263 X10^3/uL (150.0-450.0) 02/01/21 08:06 Plt Count Comment Adequate (ADEQUATE) 02/01/21 08:06 MPV 7.2 fL (7.4-11.0) L 02/01/21 08:06 Neut % (Auto) 91.6 % (42.0-75.0) H 02/01/21 08:06 Lymph % (Auto) 4.6 % (21.0-51.0) L 02/01/21 08:06 [place] % (Auto) 3.0 % (0.0-13.0) 02/01/21 08:06 Eos % (Auto) 0.5 % (0.9-2.9) L 02/01/21 08:06 Baso % (Auto) 0.3 % (0.2-1.0) 02/01/21 08:06 Neut # (Auto) 6.4 x10^3/uL (2.2-4.8) H 02/01/21 08:06 Lymph # (Auto) 0.3 X10^3/uL (1.3-2.9) L 02/01/21 08:06 [place] # (Auto) 0.2 x10^3/uL (0.3-0.8) L 02/01/21 08:06 Eos # (Auto) 0.0 x10^3/uL (0.0-0.2) 02/01/21 08:06 Baso # (Auto) 0.0 X10^3/uL (0.0-0.1) 02/01/21 08:06 Absolute Nucleated RBC 0.1 /100WBC 02/01/21 08:06 Total Counted 100 02/01/21 08:06 Neutrophils % (Manual) 92 % (39-76) H 02/01/21 08:06 Band Neutrophils % 2 % (0-10) 01/28/21 04:45 Lymphocytes % (Manual) 4 % (13-43) L 02/01/21 08:06 Monocytes % (Manual) 3 % (4-9) L 02/01/21 08:06 Eosinophils % (Manual) 1 % (0-6) 02/01/21 08:06 Plt Morphology Comment Normal (NORMAL) 02/01/21 08:06 RBC Morphology Normal (NORMAL) 02/01/21 08:06 Sample Site Rrad 01/24/21 23:10 ABG pH 7.330 (7.35-7.45) L 01/24/21 23:10 ABG pCO2 50.0 mmHg (35.0-45.0) H 01/24/21 23:10 ABG pO2 54.0 mmHg (80.0-100.0) L 01/24/21 23:10 ABG HCO3 26.4 mmol/L (22-26) H 01/24/21 23:10 ABG O2 Saturation 85.0 % (90-100) L 01/24/21 23:10 ABG Base Excess -0.1 mmol/L (-2.0-2.0) 01/24/21 23:10 Jose Miguel Test Pos 01/24/21 23:10 A-a Gradient 140.0 mmHg 01/24/21 23:10 FiO2 36.0 01/24/21 23:10 Blood Gas Comments Ramana abg well-mtf 01/24/21 23:10 Sodium 142 mmol/L (136-145) 02/01/21 08:06 Corrected Sodium 144 mmol/L (136-145) 02/01/21 08:06 Potassium 3.9 mmol/L (3.5-5.1) 02/01/21 08:06 Chloride 104 mmol/L (98-107) 02/01/21 08:06 Carbon Dioxide 34.2 mmol/L (21-32) H 02/01/21 08:06 BUN 20 mg/dL (7-18) H 02/01/21 08:06 Creatinine 0.94 mg/dL (0.55-1.02) 02/01/21 08:06 Est GFR (MDRD) Af Amer > 60 (>60) 02/01/21 08:06 Est GFR (MDRD) Non-Af > 60 (>60) 02/01/21 08:06 Glucose 164 mg/dL (65-99) H 02/01/21 08:06 Calcium 7.6 mg/dL (8.5-10.1) L 02/01/21 08:06 Corrected Calcium 8.7 mg/dL (8.5-10.1) 02/01/21 08:06 Total Bilirubin 0.30 mg/dL (0.2-1.0) 02/01/21 08:06 AST 22 Units/L (15-37) 02/01/21 08:06 ALT 45 Units/L (12-78) 02/01/21 08:06 Alkaline Phosphatase 54 Units/L (46-116) 02/01/21 08:06 Creatine Kinase 305 Units/L (26-192) H 01/25/21 20:45 CK-MB (CK-2) 17.6 ng/mL (0-4.0) H* 01/25/21 20:45 CK/CKMB % Calc 5.8 % (<4) 01/25/21 20:45 Troponin I 1.88 ng/mL (0-1.5) H* 01/25/21 20:45 Total Protein 4.9 g/dL (6.4-8.2) L 02/01/21 08:06 Albumin 2.6 g/dL (3.4-5.0) L 02/01/21 08:06 Globulin 2.3 g/dL (2.5-4.5) L 02/01/21 08:06 Albumin/Globulin Ratio 1.1 Ratio (1.1-2.1) 02/01/21 08:06 Specimen Type Catherized urine 01/25/21 03:35 Urine Color Yellow (YELLOW) 01/25/21 03:35 Urine Appearance Clear (CLEAR) 01/25/21 03:35 Urine pH 6.0 (5.0 - 8.0) 01/25/21 03:35 Ur Specific [place] 1.015 (1.000-1.030) 01/25/21 03:35 Urine Protein 2+ (NEGATIVE) 01/25/21 03:35 Urine Glucose (UA) Negative (NEGATIVE) 01/25/21 03:35 Urine Ketones Negative (NEGATIVE) 01/25/21 03:35 Urine Occult Blood Negative (NEGATIVE) 01/25/21 03:35 Urine Nitrite Negative (NEGATIVE) 01/25/21 03:35 Urine Bilirubin Negative (NEGATIVE) 01/25/21 03:35 Urine Urobilinogen Normal (NORMAL) 01/25/21 03:35 Ur Leukocyte Esterase Negative (NEGATIVE) 01/25/21 03:35 Urine RBC None seen /HPF (0-3) 01/25/21 03:35 Urine WBC None seen /HPF (0-5) 01/25/21 03:35 Ur Squamous Epith Cells Negative /HPF (NEGATIVE) 01/25/21 03:35 Urine Bacteria Trace /HPF (NEGATIVE) 01/25/21 03:35 Ur Culture Indicated? No/not indicated 01/25/21 03:35 Vancomycin Trough 18.9 ug/mL (15-20) 01/29/21 19:56 SARS-CoV-2 (PCR) Negative (NEGATIVE) 01/25/21 00:33 Influenza Type A (PCR) Negative (NEGATIVE) 01/25/21 00:33 Influenza Type B (PCR) Negative (NEGATIVE) 01/25/21 00:33 RSV (PCR) Negative (NEGATIVE) 01/25/21 00:33 - Assessment and Plan 1: large RT pneumothorax . corrected with chest tube . extensive SE . COPD with multiple blebs and emphysematous changes . d/w Pt and her son and reassured them about the resolving SE .. to observe closely .. - Problem Patient Problems: Patient Problems Pneumothorax, right (Acute) J93.9 COPD exacerbation (Acute) J44.[address] (Acute) Z96.89
--- NOTE | 2021-02-03 09:21 | RAD ---
HISTORYFOLLOW UP RIGHT PNEUMOTHORAXSTUDYCHEST x-ray, 1 VIEWCOMPARISONX-ray from previous dayFINDINGSPersistent pneumomediastinum with free air in the chest wall. No pneumothorax is seen but overlying chest wall air limits evaluation. Diffuse lung infiltrates favor the periphery of the lungs. These are unchanged. Heart is normal in size.IMPRESSIONPersistent pneumomediastinum and free air in the chest wall.Bilateral pneumonia is unchanged.Electronically signed by: Conner Das (Feb 03, 2021 09:19:49)
[2021-02-03] MEDS: PULMICORT NEB TX 0.5 MG NEB SCH ×2 (09:23→21:00)
--- NOTE | 2021-02-03 13:39 | PCM.PROG ---
Progress Note Progress Note for Day of Date of Exam: 02/03/21 Subjective Subjective: Patient seen at bedside. Patient's chest tube was removed yesterday afternoon. She did have increase in swelling of eyes and chest since then. She states the tightness is slightly better this morning, but her eyes are shut due to swelling. She remains on 2L NC. Denies shortness of breath or any respiratory distress. CXR after chest tube removal did not show any pneumothorax. Plan: will discuss patient's treatment with Dr Cui. He will be coming to assess the patient this morning. She has no respiratory distress and has remained on same oxygen requirements. Patient has severe emphysema with blebs likely causing air leakage. Follow up CXR. Will continue to monitor closely. Past Medical Family Social History Past Med/Fam/Surg Hx: No changes since H&P Allergies: Allergies No Known Drug Allergies Allergy (Verified 03/21/19 09:43) Review of Systems ROS: No change since H&P Vital Signs and I&O's Vital Signs: Temperature 98.4 F Pulse Rate [Radial] 76 Pulse Rate 99 Respiratory Rate 20 Blood Pressure [Left Arm] 114/59 Blood Pressure [Right Arm] 158/92 Blood Pressure 167/82 O2 Sat by Pulse Oximetry 94 Intake and Output: Intake & Output 01/31/21 02/01/21 02/02/21 02/03/21 23:59 23:59 23:59 23:59 Intake Total 2898 / 2898 1925 / 1925 1320 / 1320 200 / 200 Output Total 2625 / 2625 1150 / 1150 780 / 780 Balance 273 / 273 775 / 775 540 / 540 200 / 200 Physical Exam Oriented: Normal Eyes: Other (increased swelling from yesterday, eyes shut ) Throat: Normal Respiratory: Generalized, Diminished, Wheezes, Rales and OTHER (subcutanous emphysema on the right chest appears more ) Cardiovascular: Normal Auscultation: Bowel Sounds: Normal Tenderness: Normal Skin: Other (large sub cutaneous emphysema extending to the neck and face ) Musculoskeletal: Normal Psychiatric: Normal Mood Description: Calm Affect: Normal Speech Pattern: Clear and Appropriate Laboratory and Diagnostics Result Diagrams: 02/01/21 08:06 02/01/21 08:06 Labs: 01/28/21 15:40 Sputum - Expectorated Sputum Sputum Culture - Preliminary Klebsiella Pneumoniae 01/28/21 15:40 Sputum - Expectorated Sputum - Final Laboratory WBC 7.0 X10^3/uL (3.6-10.0) 02/01/21 08:06 RBC 4.38 X10^6/uL (3.5-5.4) 02/01/21 08:06 Hgb 12.2 g/dL (12.0-16.0) 02/01/21 08:06 Hct 36.5 % (36.0-47.0) 02/01/21 08:06 MCV 83.3 fL (80.0-100.0) 02/01/21 08:06 MCH 27.9 pg (27.0-34.0) 02/01/21 08:06 MCHC 33.5 g/dL (33.0-35.0) 02/01/21 08:06 RDW 14.4 % (11.6-16.5) 02/01/21 08:06 Plt Count 263 X10^3/uL (150.0-450.0) 02/01/21 08:06 Plt Count Comment Adequate (ADEQUATE) 02/01/21 08:06 MPV 7.2 fL (7.4-11.0) L 02/01/21 08:06 Neut % (Auto) 91.6 % (42.0-75.0) H 02/01/21 08:06 Lymph % (Auto) 4.6 % (21.0-51.0) L 02/01/21 08:06 [place] % (Auto) 3.0 % (0.0-13.0) 02/01/21 08:06 Eos % (Auto) 0.5 % (0.9-2.9) L 02/01/21 08:06 Baso % (Auto) 0.3 % (0.2-1.0) 02/01/21 08:06 Neut # (Auto) 6.4 x10^3/uL (2.2-4.8) H 02/01/21 08:06 Lymph # (Auto) 0.3 X10^3/uL (1.3-2.9) L 02/01/21 08:06 [place] # (Auto) 0.2 x10^3/uL (0.3-0.8) L 02/01/21 08:06 Eos # (Auto) 0.0 x10^3/uL (0.0-0.2) 02/01/21 08:06 Baso # (Auto) 0.0 X10^3/uL (0.0-0.1) 02/01/21 08:06 Absolute Nucleated RBC 0.1 /100WBC 02/01/21 08:06 Total Counted 100 02/01/21 08:06 Neutrophils % (Manual) 92 % (39-76) H 02/01/21 08:06 Band Neutrophils % 2 % (0-10) 01/28/21 04:45 Lymphocytes % (Manual) 4 % (13-43) L 02/01/21 08:06 Monocytes % (Manual) 3 % (4-9) L 02/01/21 08:06 Eosinophils % (Manual) 1 % (0-6) 02/01/21 08:06 Plt Morphology Comment Normal (NORMAL) 02/01/21 08:06 RBC Morphology Normal (NORMAL) 02/01/21 08:06 Sample Site Rrad 01/24/21 23:10 ABG pH 7.330 (7.35-7.45) L 01/24/21 23:10 ABG pCO2 50.0 mmHg (35.0-45.0) H 01/24/21 23:10 ABG pO2 54.0 mmHg (80.0-100.0) L 01/24/21 23:10 ABG HCO3 26.4 mmol/L (22-26) H 01/24/21 23:10 ABG O2 Saturation 85.0 % (90-100) L 01/24/21 23:10 ABG Base Excess -0.1 mmol/L (-2.0-2.0) 01/24/21 23:10 Jose Miguel Test Pos 01/24/21 23:10 A-a Gradient 140.0 mmHg 01/24/21 23:10 FiO2 36.0 01/24/21 23:10 Blood Gas Comments Ramana abg well-mtf 01/24/21 23:10 Sodium 142 mmol/L (136-145) 02/01/21 08:06 Corrected Sodium 144 mmol/L (136-145) 02/01/21 08:06 Potassium 3.9 mmol/L (3.5-5.1) 02/01/21 08:06 Chloride 104 mmol/L (98-107) 02/01/21 08:06 Carbon Dioxide 34.2 mmol/L (21-32) H 02/01/21 08:06 BUN 20 mg/dL (7-18) H 02/01/21 08:06 Creatinine 0.94 mg/dL (0.55-1.02) 02/01/21 08:06 Est GFR (MDRD) Af Amer > 60 (>60) 02/01/21 08:06 Est GFR (MDRD) Non-Af > 60 (>60) 02/01/21 08:06 Glucose 164 mg/dL (65-99) H 02/01/21 08:06 Calcium 7.6 mg/dL (8.5-10.1) L 02/01/21 08:06 Corrected Calcium 8.7 mg/dL (8.5-10.1) 02/01/21 08:06 Total Bilirubin 0.30 mg/dL (0.2-1.0) 02/01/21 08:06 AST 22 Units/L (15-37) 02/01/21 08:06 ALT 45 Units/L (12-78) 02/01/21 08:06 Alkaline Phosphatase 54 Units/L (46-116) 02/01/21 08:06 Creatine Kinase 305 Units/L (26-192) H 01/25/21 20:45 CK-MB (CK-2) 17.6 ng/mL (0-4.0) H* 01/25/21 20:45 CK/CKMB % Calc 5.8 % (<4) 01/25/21 20:45 Troponin I 1.88 ng/mL (0-1.5) H* 01/25/21 20:45 Total Protein 4.9 g/dL (6.4-8.2) L 02/01/21 08:06 Albumin 2.6 g/dL (3.4-5.0) L 02/01/21 08:06 Globulin 2.3 g/dL (2.5-4.5) L 02/01/21 08:06 Albumin/Globulin Ratio 1.1 Ratio (1.1-2.1) 02/01/21 08:06 Specimen Type Catherized urine 01/25/21 03:35 Urine Color Yellow (YELLOW) 01/25/21 03:35 Urine Appearance Clear (CLEAR) 01/25/21 03:35 Urine pH 6.0 (5.0 - 8.0) 01/25/21 03:35 Ur Specific [place] 1.015 (1.000-1.030) 01/25/21 03:35 Urine Protein 2+ (NEGATIVE) 01/25/21 03:35 Urine Glucose (UA) Negative (NEGATIVE) 01/25/21 03:35 Urine Ketones Negative (NEGATIVE) 01/25/21 03:35 Urine Occult Blood Negative (NEGATIVE) 01/25/21 03:35 Urine Nitrite Negative (NEGATIVE) 01/25/21 03:35 Urine Bilirubin Negative (NEGATIVE) 01/25/21 03:35 Urine Urobilinogen Normal (NORMAL) 01/25/21 03:35 Ur Leukocyte Esterase Negative (NEGATIVE) 01/25/21 03:35 Urine RBC None seen /HPF (0-3) 01/25/21 03:35 Urine WBC None seen /HPF (0-5) 01/25/21 03:35 Ur Squamous Epith Cells Negative /HPF (NEGATIVE) 01/25/21 03:35 Urine Bacteria Trace /HPF (NEGATIVE) 01/25/21 03:35 Ur Culture Indicated? No/not indicated 01/25/21 03:35 Vancomycin Trough 18.9 ug/mL (15-20) 01/29/21 19:56 SARS-CoV-2 (PCR) Negative (NEGATIVE) 01/25/21 00:33 Influenza Type A (PCR) Negative (NEGATIVE) 01/25/21 00:33 Influenza Type B (PCR) Negative (NEGATIVE) 01/25/21 00:33 RSV (PCR) Negative (NEGATIVE) 01/25/21 00:33 Plan (1) Subcutaneous emphysema: Status: Acute Qualifiers: Encounter type: initial encounter Qualified Code(s): T79.7XXA - Traumatic subcutaneous emphysema, initial encounter (2) Chest tube in place: Status: Acute (3) Pneumothorax, right: Status: Acute (4) COPD exacerbation: Status: Acute (5) Weakness: Status: Acute (6) Acute renal injury: Status: Acute
[2021-02-03] MEDS: COLACE CAP 100 MG PO SCH (21:12)
[2021-02-03] MEDS: MILK OF MAGNESIA PO SCH (21:12)
[2021-02-04] MEDS: SOLU-Medrol 125 MG VIAL IVP SCH ×3 (01:00→18:22)
[2021-02-04] MEDS: DUONEB 0.5 MG/3 MG (3 mL) NEB SCH ×6 (04:57→20:10)
[2021-02-04] MEDS: ZOSYN VIAL 3.375 GRAMS 3.375 G in NS 100 ML IV + SPIKE MINIBAG* 100 ML IV SCH ×3 (05:05→22:11)
[2021-02-04] MEDS: NEURONTIN CAP 300 MG PO SCH ×3 (05:05→22:11)
[2021-02-04 06:51] LABS: BASOPHILS % (AUTO) 0.2 % (0.2-1.0); EOSINOPHILS % (AUTO) 0.1 % (0.9-2.9); HEMOGLOBIN 12.8 g/dL (12.0-16.0); LYMPHOCYTES # (AUTO) 0.4 X10^3/uL (1.3-2.9); LYMPHOCYTES % (AUTO) 5.9 % (21.0-51.0); MEAN CORPUSCULAR HEMOGLOBIN 27.8 pg (27.0-34.0); MEAN CORPUSCULAR HGB CONC 33.6 g/dL (33.0-35.0); MEAN CORPUSCULAR VOLUME 82.8 fL (80.0-100.0); MEAN PLATELET VOLUME 7.4 fL (7.4-11.0); MONOCYTES # (AUTO) 0.2 x10^3/uL (0.3-0.8); MONOCYTES % (AUTO) 2.5 % (0.0-13.0); NEUTROPHILS # (AUTO) 5.8 x10^3/uL (2.2-4.8); NEUTROPHILS % (AUTO) 91.3 % (42.0-75.0); PLATELET COUNT 242 X10^3/uL (150.0-450.0); RED BLOOD COUNT 4.59 X10^6/uL (3.5-5.4); RED CELL DISTRIBUTION WIDTH 14.6 % (11.6-16.5); WHITE BLOOD COUNT 6.3 X10^3/uL (3.6-10.0)
[2021-02-04 07:12] LABS: ALANINE AMINOTRANSFERASE 90 Units/L (12-78); ALBUMIN 2.7 g/dL (3.4-5.0); ALKALINE PHOSPHATASE 55 Units/L (46-116); ASPARTATE AMINO TRANSFERASE 32 Units/L (15-37); BLOOD UREA NITROGEN 21 mg/dL (7-18); CALCIUM 7.7 mg/dL (8.5-10.1); CARBON DIOXIDE 32.5 mmol/L (21-32); CHLORIDE 104 mmol/L (98-107); COR CA(FOR HYPOALB) 8.7 mg/dL (8.5-10.1); COR NA(FOR HYPERGLY) 143 mmol/L (136-145); CREATININE 0.78 mg/dL (0.55-1.02); SODIUM 142 mmol/L (136-145); TOTAL PROTEIN 5.1 g/dL (6.4-8.2); eGFR NON BLACK RACES > 60 (>60)
--- NOTE | 2021-02-04 07:15 | RAD ---
HISTORYF/U RT PNEUMOTHORAXSTUDYCHEST, 1 VIEWCOMPARISONOne day prior.TECHNIQUEAP view of the chestFINDINGSCardiac and mediastinal contours are within normal limits. No significant change in bilateral airspace and interstitial opacities. No significant change in severe subcutaneous emphysema in the neck and chest with pneumomediastinum. Questionable tiny right base pneumothorax.IMPRESSIONQuestionable tiny right base pneumothorax. No evidence of tension.Electronically signed by: Jose L Soto (Feb 04, 2021 07:13:45)
[2021-02-04 08:00] LABS: PLATELET MORPHOLOGY COMMENT NORMAL (NORMAL)
[2021-02-04] MEDS: DIFLUCAN 200 MG IV PREMIX* 200 MG/100 ML BAG IV SCH (09:10)
[2021-02-04] MEDS: LOVENOX INJ 40 MG SYR SC SCH (09:10)
[2021-02-04] MEDS: NORVASC TAB 10 MG PO SCH (09:11)
[2021-02-04] MEDS: PEPCID TAB 20 MG PO SCH (09:11)
[2021-02-04] MEDS: LACRI-LUBE S.O.P. AFFEYE SCH ×2 (09:11→20:13)
[2021-02-04] MEDS: SINGULAIR TAB 10 MG PO SCH (09:12)
[2021-02-04] MEDS: SYNTHROID 50 mcg TAB PO SCH (09:13)
[2021-02-04] MEDS: PULMICORT NEB TX 0.5 MG NEB SCH ×2 (09:19→20:10)
--- NOTE | 2021-02-04 10:15 | DR.PROGNOT ---
Hospital Progress Notes - Progress Note for Day of: Progress Note Date: 02/04/21 - Chief Complaint Chief Complaint: no new complaint. no SOB or chest pain. repeated chest X ray showed expanded lung without pneumothorax . has extensive SE , all VS are stable .. - Past Medical Family Social History Past Med/Fam/Surg Hx: No changes since H&P Allergies: Allergies No Known Drug Allergies Allergy (Verified 03/21/19 09:43) - Review Of Systems ROS: No change since H&P - Vital Signs Vital Signs: Temperature 98.0 F Pulse Rate [Radial] 76 Pulse Rate 91 Respiratory Rate 15 Blood Pressure [Left Arm] 114/59 Blood Pressure [Right Arm] 158/92 Blood Pressure 155/88 O2 Sat by Pulse Oximetry 99 - Physical Exam Oriented: Normal Eyes: Other (increased swelling from yesterday, eyes shut) Throat: Normal Respiratory: Generalized, Diminished, Wheezes, Rales, OTHER (subcutanous emphysema on the right chest appears more) Cardiovascular: Normal GI:Auscultation: Normal GI:Palpation: Normal GI: Tenderness: Normal Skin: Other (large sub cutaneous emphysema extending to the neck and face) Musculoskeletal: Normal Psychiatric: Normal Mood Description: Calm Affect: Normal Speech Pattern: Clear, Appropriate - Laboratory and Diagnostics Result Diagrams: 02/04/21 06:08 02/04/21 06:08 Labs: 01/28/21 15:40 Sputum - Expectorated Sputum Sputum Culture - Preliminary Klebsiella Pneumoniae 01/28/21 15:40 Sputum - Expectorated Sputum - Final Laboratory WBC 6.3 X10^3/uL (3.6-10.0) 02/04/21 06:08 RBC 4.59 X10^6/uL (3.5-5.4) 02/04/21 06:08 Hgb 12.8 g/dL (12.0-16.0) 02/04/21 06:08 Hct 38.0 % (36.0-47.0) 02/04/21 06:08 MCV 82.8 fL (80.0-100.0) 02/04/21 06:08 MCH 27.8 pg (27.0-34.0) 02/04/21 06:08 MCHC 33.6 g/dL (33.0-35.0) 02/04/21 06:08 RDW 14.6 % (11.6-16.5) 02/04/21 06:08 Plt Count 242 X10^3/uL (150.0-450.0) 02/04/21 06:08 Plt Count Comment Adequate (ADEQUATE) 02/04/21 06:08 MPV 7.4 fL (7.4-11.0) 02/04/21 06:08 Neut % (Auto) 91.3 % (42.0-75.0) H 02/04/21 06:08 Lymph % (Auto) 5.9 % (21.0-51.0) L 02/04/21 06:08 [place] % (Auto) 2.5 % (0.0-13.0) 02/04/21 06:08 Eos % (Auto) 0.1 % (0.9-2.9) L 02/04/21 06:08 Baso % (Auto) 0.2 % (0.2-1.0) 02/04/21 06:08 Neut # (Auto) 5.8 x10^3/uL (2.2-4.8) H 02/04/21 06:08 Lymph # (Auto) 0.4 X10^3/uL (1.3-2.9) L 02/04/21 06:08 [place] # (Auto) 0.2 x10^3/uL (0.3-0.8) L 02/04/21 06:08 Eos # (Auto) 0.0 x10^3/uL (0.0-0.2) 02/04/21 06:08 Baso # (Auto) 0.0 X10^3/uL (0.0-0.1) 02/04/21 06:08 Absolute Nucleated RBC 0.0 /100WBC 02/04/21 06:08 Total Counted 100 02/04/21 06:08 Neutrophils % (Manual) 86 % (39-76) H 02/04/21 06:08 Band Neutrophils % 2 % (0-10) 01/28/21 04:45 Lymphocytes % (Manual) 13 % (13-43) 02/04/21 06:08 Monocytes % (Manual) 1 % (4-9) L 02/04/21 06:08 Eosinophils % (Manual) 1 % (0-6) 02/01/21 08:06 Plt Morphology Comment Normal (NORMAL) 02/04/21 06:08 RBC Morphology Normal (NORMAL) 02/04/21 06:08 Sample Site Rrad 01/24/21 23:10 ABG pH 7.330 (7.35-7.45) L 01/24/21 23:10 ABG pCO2 50.0 mmHg (35.0-45.0) H 01/24/21 23:10 ABG pO2 54.0 mmHg (80.0-100.0) L 01/24/21 23:10 ABG HCO3 26.4 mmol/L (22-26) H 01/24/21 23:10 ABG O2 Saturation 85.0 % (90-100) L 01/24/21 23:10 ABG Base Excess -0.1 mmol/L (-2.0-2.0) 01/24/21 23:10 Jose Miguel Test Pos 01/24/21 23:10 A-a Gradient 140.0 mmHg 01/24/21 23:10 FiO2 36.0 01/24/21 23:10 Blood Gas Comments Ramana abg well-mtf 01/24/21 23:10 Sodium 142 mmol/L (136-145) 02/04/21 06:08 Corrected Sodium 143 mmol/L (136-145) 02/04/21 06:08 Potassium 3.9 mmol/L (3.5-5.1) 02/04/21 06:08 Chloride 104 mmol/L (98-107) 02/04/21 06:08 Carbon Dioxide 32.5 mmol/L (21-32) H 02/04/21 06:08 BUN 21 mg/dL (7-18) H 02/04/21 06:08 Creatinine 0.78 mg/dL (0.55-1.02) 02/04/21 06:08 Est GFR (MDRD) Af Amer > 60 (>60) 02/04/21 06:08 Est GFR (MDRD) Non-Af > 60 (>60) 02/04/21 06:08 Glucose 135 mg/dL (65-99) H 02/04/21 06:08 Calcium 7.7 mg/dL (8.5-10.1) L 02/04/21 06:08 Corrected Calcium 8.7 mg/dL (8.5-10.1) 02/04/21 06:08 Total Bilirubin 0.40 mg/dL (0.2-1.0) 02/04/21 06:08 AST 32 Units/L (15-37) 02/04/21 06:08 ALT 90 Units/L (12-78) H 02/04/21 06:08 Alkaline Phosphatase 55 Units/L (46-116) 02/04/21 06:08 Creatine Kinase 305 Units/L (26-192) H 01/25/21 20:45 CK-MB (CK-2) 17.6 ng/mL (0-4.0) H* 01/25/21 20:45 CK/CKMB % Calc 5.8 % (<4) 01/25/21 20:45 Troponin I 1.88 ng/mL (0-1.5) H* 01/25/21 20:45 Total Protein 5.1 g/dL (6.4-8.2) L 02/04/21 06:08 Albumin 2.7 g/dL (3.4-5.0) L 02/04/21 06:08 Globulin 2.4 g/dL (2.5-4.5) L 02/04/21 06:08 Albumin/Globulin Ratio 1.1 Ratio (1.1-2.1) 02/04/21 06:08 Specimen Type Catherized urine 01/25/21 03:35 Urine Color Yellow (YELLOW) 01/25/21 03:35 Urine Appearance Clear (CLEAR) 01/25/21 03:35 Urine pH 6.0 (5.0 - 8.0) 01/25/21 03:35 Ur Specific [place] 1.015 (1.000-1.030) 01/25/21 03:35 Urine Protein 2+ (NEGATIVE) 01/25/21 03:35 Urine Glucose (UA) Negative (NEGATIVE) 01/25/21 03:35 Urine Ketones Negative (NEGATIVE) 01/25/21 03:35 Urine Occult Blood Negative (NEGATIVE) 01/25/21 03:35 Urine Nitrite Negative (NEGATIVE) 01/25/21 03:35 Urine Bilirubin Negative (NEGATIVE) 01/25/21 03:35 Urine Urobilinogen Normal (NORMAL) 01/25/21 03:35 Ur Leukocyte Esterase Negative (NEGATIVE) 01/25/21 03:35 Urine RBC None seen /HPF (0-3) 01/25/21 03:35 Urine WBC None seen /HPF (0-5) 01/25/21 03:35 Ur Squamous Epith Cells Negative /HPF (NEGATIVE) 01/25/21 03:35 Urine Bacteria Trace /HPF (NEGATIVE) 01/25/21 03:35 Ur Culture Indicated? No/not indicated 01/25/21 03:35 Vancomycin Trough 18.9 ug/mL (15-20) 01/29/21 19:56 SARS-CoV-2 (PCR) Negative (NEGATIVE) 01/25/21 00:33 Influenza Type A (PCR) Negative (NEGATIVE) 01/25/21 00:33 Influenza Type B (PCR) Negative (NEGATIVE) 01/25/21 00:33 RSV (PCR) Negative (NEGATIVE) 01/25/21 00:33 - Assessment and Plan 1: large spontaneous RT pneumothorax . corrected with chest tube . still with extensive SE extending to the face and eyes. COPD with multiple blebs and emphysematous changes . same care and close observation .. - Problem Patient Problems: Patient Problems Pneumothorax, right (Acute) J93.9 COPD exacerbation (Acute) J44.[address] (Acute) Z96.89
[2021-02-04] MEDS: NS 250 ML IV 250 ML IV PRN (20:00)
[2021-02-04] MEDS: COLACE CAP 100 MG PO SCH (20:13)
[2021-02-04] MEDS: MILK OF MAGNESIA PO SCH (20:14)
[2021-02-05] MEDS: DUONEB 0.5 MG/3 MG (3 mL) NEB SCH ×6 (00:10→21:00)
[2021-02-05] MEDS: SOLU-Medrol 125 MG VIAL IVP SCH ×3 (01:00→18:20)
[2021-02-05] MEDS: ZOSYN VIAL 3.375 GRAMS 3.375 G in NS 100 ML IV + SPIKE MINIBAG* 100 ML IV SCH (05:31)
[2021-02-05] MEDS: NEURONTIN CAP 300 MG PO SCH ×3 (05:31→21:02)
[2021-02-05 06:04] LABS: BASOPHILS % (AUTO) 0.3 % (0.2-1.0); HEMATOCRIT 38.9 % (36.0-47.0); HEMOGLOBIN 12.9 g/dL (12.0-16.0); LYMPHOCYTES # (AUTO) 0.3 X10^3/uL (1.3-2.9); LYMPHOCYTES % (AUTO) 4.1 % (21.0-51.0); MEAN CORPUSCULAR HEMOGLOBIN 27.7 pg (27.0-34.0); MEAN CORPUSCULAR HGB CONC 33.1 g/dL (33.0-35.0); MEAN CORPUSCULAR VOLUME 83.5 fL (80.0-100.0); MEAN PLATELET VOLUME 7.3 fL (7.4-11.0); MONOCYTES # (AUTO) 0.2 x10^3/uL (0.3-0.8); MONOCYTES % (AUTO) 2.4 % (0.0-13.0); NEUTROPHILS # (AUTO) 6.9 x10^3/uL (2.2-4.8); NEUTROPHILS % (AUTO) 93.2 % (42.0-75.0); PLATELET COUNT 246 X10^3/uL (150.0-450.0); RED BLOOD COUNT 4.66 X10^6/uL (3.5-5.4); RED CELL DISTRIBUTION WIDTH 14.4 % (11.6-16.5); WHITE BLOOD COUNT 7.4 X10^3/uL (3.6-10.0)
[2021-02-05 06:21] LABS: ALANINE AMINOTRANSFERASE 75 Units/L (12-78); ALBUMIN 2.7 g/dL (3.4-5.0); ALKALINE PHOSPHATASE 54 Units/L (46-116); ASPARTATE AMINO TRANSFERASE 21 Units/L (15-37); BLOOD UREA NITROGEN 20 mg/dL (7-18); CALCIUM 7.8 mg/dL (8.5-10.1); CHLORIDE 102 mmol/L (98-107); COR CA(FOR HYPOALB) 8.8 mg/dL (8.5-10.1); COR NA(FOR HYPERGLY) 143 mmol/L (136-145); CREATININE 0.82 mg/dL (0.55-1.02); SODIUM 142 mmol/L (136-145); eGFR NON BLACK RACES > 60 (>60)
[2021-02-05] MEDS ORDERED: POTASSIUM CHL 40 MEQ/NS 0.45% 500 ML IV PRN (06:29)
[2021-02-05] MEDS ORDERED: MAGNESIUM SULFATE 1 GRAM/100 mL PREMIX 1 G/100 ML BAG IV PRN (06:29)
[2021-02-05] MEDS ORDERED: MICRO K EXTEN CAP 10 MEQ PO PRN (06:29)
[2021-02-05] MEDS ORDERED: POTASSIUM CHL 60 MEQ/NS 0.45% 500 ML IV PRN (06:29)
[2021-02-05] MEDS ORDERED: K-RIDER 10 MEQ/NS 100 ML 10 MEQ/100 ML BAG IV PRN (06:29)
[2021-02-05] MEDS ORDERED: K-DUR TAB 20 MEQ PO PRN (06:29)
[2021-02-05] MEDS ORDERED: POTASSIUM CHLORIDE LIQ 20 MEQ UDC PO PRN (06:29)
[2021-02-05] MEDS ORDERED: KLOR-CON PO PRN (06:29)
[2021-02-05 07:28] LABS: BAND NEUTROPHILS % 3 % (0-10)
[2021-02-05 07:29] LABS: PLATELET MORPHOLOGY COMMENT NORMAL (NORMAL)
[2021-02-05] MEDS: LACRI-LUBE S.O.P. AFFEYE SCH ×2 (08:58→20:38)
[2021-02-05] MEDS: LOVENOX INJ 40 MG SYR SC SCH (08:58)
[2021-02-05] MEDS: DIFLUCAN 200 MG IV PREMIX* 200 MG/100 ML BAG IV SCH (08:58)
[2021-02-05] MEDS: NORVASC TAB 10 MG PO SCH (08:59)
[2021-02-05] MEDS: PEPCID TAB 20 MG PO SCH (08:59)
[2021-02-05] MEDS: SINGULAIR TAB 10 MG PO SCH (08:59)
[2021-02-05] MEDS: SYNTHROID 50 mcg TAB PO SCH (08:59)
[2021-02-05] MEDS: PULMICORT NEB TX 0.5 MG NEB SCH ×2 (09:16→21:00)
--- NOTE | 2021-02-05 10:07 | DR.PROGNOT ---
Hospital Progress Notes - Progress Note for Day of: Progress Note Date: 02/05/21 - Chief Complaint Chief Complaint: no new complaint. no SOB or chest pain. tolerating diet well . still having wxtensive SE .. - Past Medical Family Social History Past Med/Fam/Surg Hx: No changes since H&P Allergies: Allergies No Known Drug Allergies Allergy (Verified 03/21/19 09:43) - Review Of Systems ROS: No change since H&P - Vital Signs Vital Signs: Temperature 97.9 F Pulse Rate [Radial] 76 Pulse Rate 91 Respiratory Rate 14 Blood Pressure [Left Arm] 114/59 Blood Pressure [Right Arm] 158/92 Blood Pressure 159/79 O2 Sat by Pulse Oximetry 95 - Physical Exam Oriented: Normal Eyes: Other (increased swelling from yesterday, eyes shut) Throat: Normal Respiratory: Generalized, Diminished, Wheezes, Rales, OTHER (subcutanous emphysema on the right chest appears more) Cardiovascular: Normal GI:Auscultation: Normal GI:Palpation: Normal GI: Tenderness: Normal Skin: Other (large sub cutaneous emphysema extending to the neck and face) Musculoskeletal: Normal Psychiatric: Normal Mood Description: Calm Affect: Normal Speech Pattern: Clear, Appropriate - Laboratory and Diagnostics Result Diagrams: 02/05/21 05:00 02/05/21 05:00 Labs: 01/28/21 15:40 Sputum - Expectorated Sputum Sputum Culture - Final Klebsiella Pneumoniae 01/28/21 15:40 Sputum - Expectorated Sputum - Final Laboratory WBC 7.4 X10^3/uL (3.6-10.0) 02/05/21 05:00 RBC 4.66 X10^6/uL (3.5-5.4) 02/05/21 05:00 Hgb 12.9 g/dL (12.0-16.0) 02/05/21 05:00 Hct 38.9 % (36.0-47.0) 02/05/21 05:00 MCV 83.5 fL (80.0-100.0) 02/05/21 05:00 MCH 27.7 pg (27.0-34.0) 02/05/21 05:00 MCHC 33.1 g/dL (33.0-35.0) 02/05/21 05:00 RDW 14.4 % (11.6-16.5) 02/05/21 05:00 Plt Count 246 X10^3/uL (150.0-450.0) 02/05/21 05:00 Plt Count Comment Adequate (ADEQUATE) 02/05/21 05:00 MPV 7.3 fL (7.4-11.0) L 02/05/21 05:00 Neut % (Auto) 93.2 % (42.0-75.0) H 02/05/21 05:00 Lymph % (Auto) 4.1 % (21.0-51.0) L 02/05/21 05:00 [place] % (Auto) 2.4 % (0.0-13.0) 02/05/21 05:00 Eos % (Auto) 0.0 % (0.9-2.9) L 02/05/21 05:00 Baso % (Auto) 0.3 % (0.2-1.0) 02/05/21 05:00 Neut # (Auto) 6.9 x10^3/uL (2.2-4.8) H 02/05/21 05:00 Lymph # (Auto) 0.3 X10^3/uL (1.3-2.9) L 02/05/21 05:00 [place] # (Auto) 0.2 x10^3/uL (0.3-0.8) L 02/05/21 05:00 Eos # (Auto) 0.0 x10^3/uL (0.0-0.2) 02/05/21 05:00 Baso # (Auto) 0.0 X10^3/uL (0.0-0.1) 02/05/21 05:00 Absolute Nucleated RBC 0.1 /100WBC 02/05/21 05:00 Total Counted 100 02/05/21 05:00 Neutrophils % (Manual) 90 % (39-76) H 02/05/21 05:00 Band Neutrophils % 3 % (0-10) 02/05/21 05:00 Lymphocytes % (Manual) 2 % (13-43) L 02/05/21 05:00 Monocytes % (Manual) 5 % (4-9) 02/05/21 05:00 Eosinophils % (Manual) 1 % (0-6) 02/01/21 08:06 Plt Morphology Comment Normal (NORMAL) 02/05/21 05:00 RBC Morphology Normal (NORMAL) 02/05/21 05:00 Sample Site Rrad 01/24/21 23:10 ABG pH 7.330 (7.35-7.45) L 01/24/21 23:10 ABG pCO2 50.0 mmHg (35.0-45.0) H 01/24/21 23:10 ABG pO2 54.0 mmHg (80.0-100.0) L 01/24/21 23:10 ABG HCO3 26.4 mmol/L (22-26) H 01/24/21 23:10 ABG O2 Saturation 85.0 % (90-100) L 01/24/21 23:10 ABG Base Excess -0.1 mmol/L (-2.0-2.0) 01/24/21 23:10 Jose Miguel Test Pos 01/24/21 23:10 A-a Gradient 140.0 mmHg 01/24/21 23:10 FiO2 36.0 01/24/21 23:10 Blood Gas Comments Ramana abg well-mtf 01/24/21 23:10 Sodium 142 mmol/L (136-145) 02/05/21 05:00 Corrected Sodium 143 mmol/L (136-145) 02/05/21 05:00 Potassium 3.4 mmol/L (3.5-5.1) L 02/05/21 05:00 Chloride 102 mmol/L (98-107) 02/05/21 05:00 Carbon Dioxide 35.0 mmol/L (21-32) H 02/05/21 05:00 BUN 20 mg/dL (7-18) H 02/05/21 05:00 Creatinine 0.82 mg/dL (0.55-1.02) 02/05/21 05:00 Est GFR (MDRD) Af Amer > 60 (>60) 02/05/21 05:00 Est GFR (MDRD) Non-Af > 60 (>60) 02/05/21 05:00 Glucose 149 mg/dL (65-99) H 02/05/21 05:00 Calcium 7.8 mg/dL (8.5-10.1) L 02/05/21 05:00 Corrected Calcium 8.8 mg/dL (8.5-10.1) 02/05/21 05:00 Magnesium 2.6 mg/dL (1.7-2.9) 02/05/21 05:00 Magnesium Cancelled 02/05/21 05:00 Total Bilirubin 0.30 mg/dL (0.2-1.0) 02/05/21 05:00 AST 21 Units/L (15-37) 02/05/21 05:00 ALT 75 Units/L (12-78) 02/05/21 05:00 Alkaline Phosphatase 54 Units/L (46-116) 02/05/21 05:00 Creatine Kinase 305 Units/L (26-192) H 01/25/21 20:45 CK-MB (CK-2) 17.6 ng/mL (0-4.0) H* 01/25/21 20:45 CK/CKMB % Calc 5.8 % (<4) 01/25/21 20:45 Troponin I 1.88 ng/mL (0-1.5) H* 01/25/21 20:45 Total Protein 5.0 g/dL (6.4-8.2) L 02/05/21 05:00 Albumin 2.7 g/dL (3.4-5.0) L 02/05/21 05:00 Globulin 2.3 g/dL (2.5-4.5) L 02/05/21 05:00 Albumin/Globulin Ratio 1.2 Ratio (1.1-2.1) 02/05/21 05:00 Specimen Type Catherized urine 01/25/21 03:35 Urine Color Yellow (YELLOW) 01/25/21 03:35 Urine Appearance Clear (CLEAR) 01/25/21 03:35 Urine pH 6.0 (5.0 - 8.0) 01/25/21 03:35 Ur Specific [place] 1.015 (1.000-1.030) 01/25/21 03:35 Urine Protein 2+ (NEGATIVE) 01/25/21 03:35 Urine Glucose (UA) Negative (NEGATIVE) 01/25/21 03:35 Urine Ketones Negative (NEGATIVE) 01/25/21 03:35 Urine Occult Blood Negative (NEGATIVE) 01/25/21 03:35 Urine Nitrite Negative (NEGATIVE) 01/25/21 03:35 Urine Bilirubin Negative (NEGATIVE) 01/25/21 03:35 Urine Urobilinogen Normal (NORMAL) 01/25/21 03:35 Ur Leukocyte Esterase Negative (NEGATIVE) 01/25/21 03:35 Urine RBC None seen /HPF (0-3) 01/25/21 03:35 Urine WBC None seen /HPF (0-5) 01/25/21 03:35 Ur Squamous Epith Cells Negative /HPF (NEGATIVE) 01/25/21 03:35 Urine Bacteria Trace /HPF (NEGATIVE) 01/25/21 03:35 Ur Culture Indicated? No/not indicated 01/25/21 03:35 Vancomycin Trough 18.9 ug/mL (15-20) 01/29/21 19:56 SARS-CoV-2 (PCR) Negative (NEGATIVE) 01/25/21 00:33 Influenza Type A (PCR) Negative (NEGATIVE) 01/25/21 00:33 Influenza Type B (PCR) Negative (NEGATIVE) 01/25/21 00:33 RSV (PCR) Negative (NEGATIVE) 01/25/21 00:33 - Assessment and Plan 1: large spontaneous RT pneumothorax corrected with chest tube .( removed already ). still with extensive SE extending to the face and eyes. COPD with multiple blebs and emphysematous changes . same care and close observation .. - Problem Patient Problems: Patient Problems Pneumothorax, right (Acute) J93.9 COPD exacerbation (Acute) J44.[address] (Acute) Z96.89
[2021-02-05] MEDS: WELLBUTRIN XL 150 MG (DAILY) PO SCH (14:40)
--- NOTE | 2021-02-05 16:51 | PCM.PROG ---
Progress Note Progress Note for Day of Date of Exam: 02/05/21 Subjective Subjective: Patient seen at bedside. Patient's chest tube was removed day before yesterday afternoon. She did have increase in swelling of eyes and chest since then. She states the tightness is slightly better this morning, but her eyes are shut due to swelling. She remains on 2L NC. Denies shortness of breath or any respiratory distress. CXR after chest tube removal did not show any pneumothorax. Yesterday's CXR showed a possible small pneumothorax. Will repeat CXR in am. Feels fine this am. Past Medical Family Social History Past Med/Fam/Surg Hx: No changes since H&P Allergies: Allergies No Known Drug Allergies Allergy (Verified 03/21/19 09:43) Review of Systems ROS: No change since H&P Vital Signs and I&O's Vital Signs: Temperature 98.3 F Pulse Rate [Radial] 76 Pulse Rate 82 Respiratory Rate 17 Blood Pressure [Left Arm] 114/59 Blood Pressure [Right Arm] 158/92 Blood Pressure 154/79 O2 Sat by Pulse Oximetry 96 Intake and Output: Intake & Output 02/03/21 02/04/21 02/05/21 02/06/21 11:59 11:59 11:59 11:59 Intake Total 1300 / 1300 1900 / 1900 1625 / 1625 Output Total 750 / 750 820 / 820 850 / 850 Balance 550 / 550 1080 / 1080 775 / 775 Physical Exam Oriented: Normal Eyes: Other (increased swelling from yesterday, eyes shut ) Throat: Normal Respiratory: Generalized, Diminished and [place] Cardiovascular: Normal Auscultation: Bowel Sounds: Normal Tenderness: Normal Skin: Other (large sub cutaneous emphysema extending to the neck and face ) Musculoskeletal: Normal Psychiatric: Normal Mood Description: Calm Affect: Normal Speech Pattern: Clear and Appropriate Laboratory and Diagnostics Result Diagrams: 02/05/21 05:00 02/05/21 05:00 Labs: 01/28/21 15:40 Sputum - Expectorated Sputum Sputum Culture - Final Klebsiella Pneumoniae 01/28/21 15:40 Sputum - Expectorated Sputum - Final Laboratory WBC 7.4 X10^3/uL (3.6-10.0) 02/05/21 05:00 RBC 4.66 X10^6/uL (3.5-5.4) 02/05/21 05:00 Hgb 12.9 g/dL (12.0-16.0) 02/05/21 05:00 Hct 38.9 % (36.0-47.0) 02/05/21 05:00 MCV 83.5 fL (80.0-100.0) 02/05/21 05:00 MCH 27.7 pg (27.0-34.0) 02/05/21 05:00 MCHC 33.1 g/dL (33.0-35.0) 02/05/21 05:00 RDW 14.4 % (11.6-16.5) 02/05/21 05:00 Plt Count 246 X10^3/uL (150.0-450.0) 02/05/21 05:00 Plt Count Comment Adequate (ADEQUATE) 02/05/21 05:00 MPV 7.3 fL (7.4-11.0) L 02/05/21 05:00 Neut % (Auto) 93.2 % (42.0-75.0) H 02/05/21 05:00 Lymph % (Auto) 4.1 % (21.0-51.0) L 02/05/21 05:00 [place] % (Auto) 2.4 % (0.0-13.0) 02/05/21 05:00 Eos % (Auto) 0.0 % (0.9-2.9) L 02/05/21 05:00 Baso % (Auto) 0.3 % (0.2-1.0) 02/05/21 05:00 Neut # (Auto) 6.9 x10^3/uL (2.2-4.8) H 02/05/21 05:00 Lymph # (Auto) 0.3 X10^3/uL (1.3-2.9) L 02/05/21 05:00 [place] # (Auto) 0.2 x10^3/uL (0.3-0.8) L 02/05/21 05:00 Eos # (Auto) 0.0 x10^3/uL (0.0-0.2) 02/05/21 05:00 Baso # (Auto) 0.0 X10^3/uL (0.0-0.1) 02/05/21 05:00 Absolute Nucleated RBC 0.1 /100WBC 02/05/21 05:00 Total Counted 100 02/05/21 05:00 Neutrophils % (Manual) 90 % (39-76) H 02/05/21 05:00 Band Neutrophils % 3 % (0-10) 02/05/21 05:00 Lymphocytes % (Manual) 2 % (13-43) L 02/05/21 05:00 Monocytes % (Manual) 5 % (4-9) 02/05/21 05:00 Eosinophils % (Manual) 1 % (0-6) 02/01/21 08:06 Plt Morphology Comment Normal (NORMAL) 02/05/21 05:00 RBC Morphology Normal (NORMAL) 02/05/21 05:00 Sample Site Rrad 01/24/21 23:10 ABG pH 7.330 (7.35-7.45) L 01/24/21 23:10 ABG pCO2 50.0 mmHg (35.0-45.0) H 01/24/21 23:10 ABG pO2 54.0 mmHg (80.0-100.0) L 01/24/21 23:10 ABG HCO3 26.4 mmol/L (22-26) H 01/24/21 23:10 ABG O2 Saturation 85.0 % (90-100) L 01/24/21 23:10 ABG Base Excess -0.1 mmol/L (-2.0-2.0) 01/24/21 23:10 Jose Miguel Test Pos 01/24/21 23:10 A-a Gradient 140.0 mmHg 01/24/21 23:10 FiO2 36.0 01/24/21 23:10 Blood Gas Comments Ramaan abg well-mtf 01/24/21 23:10 Sodium 142 mmol/L (136-145) 02/05/21 05:00 Corrected Sodium 143 mmol/L (136-145) 02/05/21 05:00 Potassium 3.4 mmol/L (3.5-5.1) L 02/05/21 05:00 Chloride 102 mmol/L (98-107) 02/05/21 05:00 Carbon Dioxide 35.0 mmol/L (21-32) H 02/05/21 05:00 BUN 20 mg/dL (7-18) H 02/05/21 05:00 Creatinine 0.82 mg/dL (0.55-1.02) 02/05/21 05:00 Est GFR (MDRD) Af Amer > 60 (>60) 02/05/21 05:00 Est GFR (MDRD) Non-Af > 60 (>60) 02/05/21 05:00 Glucose 149 mg/dL (65-99) H 02/05/21 05:00 Calcium 7.8 mg/dL (8.5-10.1) L 02/05/21 05:00 Corrected Calcium 8.8 mg/dL (8.5-10.1) 02/05/21 05:00 Magnesium 2.6 mg/dL (1.7-2.9) 02/05/21 05:00 Magnesium Cancelled 02/05/21 05:00 Total Bilirubin 0.30 mg/dL (0.2-1.0) 02/05/21 05:00 AST 21 Units/L (15-37) 02/05/21 05:00 ALT 75 Units/L (12-78) 02/05/21 05:00 Alkaline Phosphatase 54 Units/L (46-116) 02/05/21 05:00 Creatine Kinase 305 Units/L (26-192) H 01/25/21 20:45 CK-MB (CK-2) 17.6 ng/mL (0-4.0) H* 01/25/21 20:45 CK/CKMB % Calc 5.8 % (<4) 01/25/21 20:45 Troponin I 1.88 ng/mL (0-1.5) H* 01/25/21 20:45 Total Protein 5.0 g/dL (6.4-8.2) L 02/05/21 05:00 Albumin 2.7 g/dL (3.4-5.0) L 02/05/21 05:00 Globulin 2.3 g/dL (2.5-4.5) L 02/05/21 05:00 Albumin/Globulin Ratio 1.2 Ratio (1.1-2.1) 02/05/21 05:00 Specimen Type Catherized urine 01/25/21 03:35 Urine Color Yellow (YELLOW) 01/25/21 03:35 Urine Appearance Clear (CLEAR) 01/25/21 03:35 Urine pH 6.0 (5.0 - 8.0) 01/25/21 03:35 Ur Specific [place] 1.015 (1.000-1.030) 01/25/21 03:35 Urine Protein 2+ (NEGATIVE) 01/25/21 03:35 Urine Glucose (UA) Negative (NEGATIVE) 01/25/21 03:35 Urine Ketones Negative (NEGATIVE) 01/25/21 03:35 Urine Occult Blood Negative (NEGATIVE) 01/25/21 03:35 Urine Nitrite Negative (NEGATIVE) 01/25/21 03:35 Urine Bilirubin Negative (NEGATIVE) 01/25/21 03:35 Urine Urobilinogen Normal (NORMAL) 01/25/21 03:35 Ur Leukocyte Esterase Negative (NEGATIVE) 01/25/21 03:35 Urine RBC None seen /HPF (0-3) 01/25/21 03:35 Urine WBC None seen /HPF (0-5) 01/25/21 03:35 Ur Squamous Epith Cells Negative /HPF (NEGATIVE) 01/25/21 03:35 Urine Bacteria Trace /HPF (NEGATIVE) 01/25/21 03:35 Ur Culture Indicated? No/not indicated 01/25/21 03:35 Vancomycin Trough 18.9 ug/mL (15-20) 01/29/21 19:56 SARS-CoV-2 (PCR) Negative (NEGATIVE) 01/25/21 00:33 Influenza Type A (PCR) Negative (NEGATIVE) 01/25/21 00:33 Influenza Type B (PCR) Negative (NEGATIVE) 01/25/21 00:33 RSV (PCR) Negative (NEGATIVE) 01/25/21 00:33 Radiology Reviewed: Yes Plan (1) Hypokalemia: Status: Acute Plan: Potassium replacement protocol. (2) Subcutaneous emphysema: Status: Acute Qualifiers: Encounter type: initial encounter Qualified Code(s): T79.7XXA - Traumatic subcutaneous emphysema, initial encounter Plan: Subcutaneous air will be reabsorbed. This was communicated to patient and her son. (3) Pneumothorax, right: Status: Acute Plan: Repeat CXR in am since last CXR showed a possible small pneumothorax. (4) COPD exacerbation: Status: Acute Narrative Support Text: Improving. Plan: Cont. ABX and neb treatments. (5) Weakness: Status: Acute (6) Acute renal injury: Status: Acute Plan: Much improved. Continue IVF. (7) Chest tube in place: Status: Resolved
[2021-02-05] MEDS: COLACE CAP 100 MG PO SCH (20:35)
[2021-02-05] MEDS: MILK OF MAGNESIA PO SCH (23:28)
[2021-02-06] MEDS: DUONEB 0.5 MG/3 MG (3 mL) NEB SCH ×3 (00:20→09:40)
[2021-02-06] MEDS: SOLU-Medrol 125 MG VIAL IVP SCH ×2 (02:05→09:45)
--- NOTE | 2021-02-06 06:02 | RAD ---
HISTORYPNEUMONTHORAX HX: HTN, ASTHMA, COPDSTUDYCHEST, 1 [id number] trachea is midline. Normal heart size. There is again seen severe subcutaneous emphysema. No dominant pneumothorax. There is airspace disease involving the periphery of bilateral lungs as well as the bases. Since prior study, there has been worsening of airspace disease with more radiopacities in the periphery as well as confluent in the bases.IMPRESSIONPersistent diffuse subcutaneous emphysema.Interval worsening of airspace disease with alveolar and ground-glass radiopacities involving the periphery of both lungs as well as confluent in the bases. No dominant pneumothorax.Electronically signed by: Kristen Payan (Feb 06, 2021 06:01:18)
[2021-02-06] MEDS: NEURONTIN CAP 300 MG PO SCH (06:30)
[2021-02-06 06:33] LABS: BASOPHILS % (AUTO) 0.2 % (0.2-1.0); EOSINOPHILS # (AUTO) 0.1 x10^3/uL (0.0-0.2); EOSINOPHILS % (AUTO) 0.6 % (0.9-2.9); HEMATOCRIT 38.5 % (36.0-47.0); HEMOGLOBIN 12.8 g/dL (12.0-16.0); LYMPHOCYTES # (AUTO) 0.4 X10^3/uL (1.3-2.9); LYMPHOCYTES % (AUTO) 3.9 % (21.0-51.0); MEAN CORPUSCULAR HEMOGLOBIN 27.7 pg (27.0-34.0); MEAN CORPUSCULAR HGB CONC 33.2 g/dL (33.0-35.0); MEAN CORPUSCULAR VOLUME 83.4 fL (80.0-100.0); MEAN PLATELET VOLUME 7.6 fL (7.4-11.0); MONOCYTES # (AUTO) 0.2 x10^3/uL (0.3-0.8); MONOCYTES % (AUTO) 2.3 % (0.0-13.0); NEUTROPHILS # (AUTO) 9.2 x10^3/uL (2.2-4.8); PLATELET COUNT 241 X10^3/uL (150.0-450.0); RED BLOOD COUNT 4.62 X10^6/uL (3.5-5.4); RED CELL DISTRIBUTION WIDTH 14.1 % (11.6-16.5); WHITE BLOOD COUNT 9.9 X10^3/uL (3.6-10.0)
[2021-02-06 06:44] LABS: ALANINE AMINOTRANSFERASE 70 Units/L (12-78); ALBUMIN 2.8 g/dL (3.4-5.0); ALKALINE PHOSPHATASE 54 Units/L (46-116); ASPARTATE AMINO TRANSFERASE 23 Units/L (15-37); BLOOD UREA NITROGEN 18 mg/dL (7-18); CALCIUM 8.1 mg/dL (8.5-10.1); CARBON DIOXIDE 34.5 mmol/L (21-32); CHLORIDE 103 mmol/L (98-107); COR CA(FOR HYPOALB) 9.1 mg/dL (8.5-10.1); COR NA(FOR HYPERGLY) 144 mmol/L (136-145); CREATININE 0.86 mg/dL (0.55-1.02); SODIUM 143 mmol/L (136-145); eGFR NON BLACK RACES > 60 (>60)
[2021-02-06 07:38] LABS: PLATELET MORPHOLOGY COMMENT NORMAL (NORMAL)
[2021-02-06] MEDS ORDERED: LASIX IVP ONE (08:25)
--- NOTE | 2021-02-06 08:56 | DR.PROGNOT ---
Hospital Progress Notes - Progress Note for Day of: Progress Note Date: 02/06/21 - Chief Complaint Chief Complaint: stable SE without SOB or chest pain. tolerating diet well and having normal BM ... WBC is normal with 93% segs. BUN/ Creat , LFT all normal . chest Xray no pneumothorax . normal VS . still having wxtensive SE .. - Past Medical Family Social History Past Med/Fam/Surg Hx: No changes since H&P Allergies: Allergies No Known Drug Allergies Allergy (Verified 03/21/19 09:43) - Review Of Systems ROS: No change since H&P - Vital Signs Vital Signs: Temperature 97.9 F Pulse Rate [Radial] 76 Pulse Rate 86 Respiratory Rate 18 Blood Pressure [Left Arm] 114/59 Blood Pressure [Right Arm] 158/92 Blood Pressure 170/82 O2 Sat by Pulse Oximetry 99 - Physical Exam Oriented: Normal Eyes: Other (increased swelling from yesterday, eyes shut) Throat: Normal Respiratory: Generalized (bilateral rhonchi ), Diminished Cardiovascular: Normal GI:Auscultation: Normal GI:Palpation: Normal GI: Tenderness: Normal Skin: Other (large sub cutaneous emphysema extending to the neck and face) Musculoskeletal: Normal Psychiatric: Normal Mood Description: Calm Affect: Normal Speech Pattern: Clear, Appropriate - Laboratory and Diagnostics Result Diagrams: 02/06/21 06:19 02/06/21 06:19 Labs: 01/28/21 15:40 Sputum - Expectorated Sputum Sputum Culture - Final Klebsiella Pneumoniae 01/28/21 15:40 Sputum - Expectorated Sputum - Final Laboratory WBC 9.9 X10^3/uL (3.6-10.0) 02/06/21 06:19 RBC 4.62 X10^6/uL (3.5-5.4) 02/06/21 06:19 Hgb 12.8 g/dL (12.0-16.0) 02/06/21 06:19 Hct 38.5 % (36.0-47.0) 02/06/21 06:19 MCV 83.4 fL (80.0-100.0) 02/06/21 06:19 MCH 27.7 pg (27.0-34.0) 02/06/21 06:19 MCHC 33.2 g/dL (33.0-35.0) 02/06/21 06:19 RDW 14.1 % (11.6-16.5) 02/06/21 06:19 Plt Count 241 X10^3/uL (150.0-450.0) 02/06/21 06:19 Plt Count Comment Adequate (ADEQUATE) 02/06/21 06:19 MPV 7.6 fL (7.4-11.0) 02/06/21 06:19 Neut % (Auto) 93.0 % (42.0-75.0) H 02/06/21 06:19 Lymph % (Auto) 3.9 % (21.0-51.0) L 02/06/21 06:19 [place] % (Auto) 2.3 % (0.0-13.0) 02/06/21 06:19 Eos % (Auto) 0.6 % (0.9-2.9) L 02/06/21 06:19 Baso % (Auto) 0.2 % (0.2-1.0) 02/06/21 06:19 Neut # (Auto) 9.2 x10^3/uL (2.2-4.8) H 02/06/21 06:19 Lymph # (Auto) 0.4 X10^3/uL (1.3-2.9) L 02/06/21 06:19 [place] # (Auto) 0.2 x10^3/uL (0.3-0.8) L 02/06/21 06:19 Eos # (Auto) 0.1 x10^3/uL (0.0-0.2) 02/06/21 06:19 Baso # (Auto) 0.0 X10^3/uL (0.0-0.1) 02/06/21 06:19 Absolute Nucleated RBC 0.0 /100WBC 02/06/21 06:19 Total Counted 100 02/06/21 06:19 Neutrophils % (Manual) 91 % (39-76) H 02/06/21 06:19 Band Neutrophils % 3 % (0-10) 02/05/21 05:00 Lymphocytes % (Manual) 4 % (13-43) L 02/06/21 06:19 Monocytes % (Manual) 5 % (4-9) 02/06/21 06:19 Eosinophils % (Manual) 1 % (0-6) 02/01/21 08:06 Plt Morphology Comment Normal (NORMAL) 02/06/21 06:19 RBC Morphology Normal (NORMAL) 02/06/21 06:19 Sample Site Rrad 01/24/21 23:10 ABG pH 7.330 (7.35-7.45) L 01/24/21 23:10 ABG pCO2 50.0 mmHg (35.0-45.0) H 01/24/21 23:10 ABG pO2 54.0 mmHg (80.0-100.0) L 01/24/21 23:10 ABG HCO3 26.4 mmol/L (22-26) H 01/24/21 23:10 ABG O2 Saturation 85.0 % (90-100) L 01/24/21 23:10 ABG Base Excess -0.1 mmol/L (-2.0-2.0) 01/24/21 23:10 Jose Miguel Test Pos 01/24/21 23:10 A-a Gradient 140.0 mmHg 01/24/21 23:10 FiO2 36.0 01/24/21 23:10 Blood Gas Comments Ramana abg well-mtf 01/24/21 23:10 Sodium 143 mmol/L (136-145) 02/06/21 06:19 Corrected Sodium 144 mmol/L (136-145) 02/06/21 06:19 Potassium 3.4 mmol/L (3.5-5.1) L 02/06/21 06:19 Chloride 103 mmol/L (98-107) 02/06/21 06:19 Carbon Dioxide 34.5 mmol/L (21-32) H 02/06/21 06:19 BUN 18 mg/dL (7-18) 02/06/21 06:19 Creatinine 0.86 mg/dL (0.55-1.02) 02/06/21 06:19 Est GFR (MDRD) Af Amer > 60 (>60) 02/06/21 06:19 Est GFR (MDRD) Non-Af > 60 (>60) 02/06/21 06:19 Glucose 131 mg/dL (65-99) H 02/06/21 06:19 Calcium 8.1 mg/dL (8.5-10.1) L 02/06/21 06:19 Corrected Calcium 9.1 mg/dL (8.5-10.1) 02/06/21 06:19 Magnesium 2.6 mg/dL (1.7-2.9) 02/05/21 05:00 Magnesium Cancelled 02/05/21 05:00 Total Bilirubin 0.30 mg/dL (0.2-1.0) 02/06/21 06:19 AST 23 Units/L (15-37) 02/06/21 06:19 ALT 70 Units/L (12-78) 02/06/21 06:19 Alkaline Phosphatase 54 Units/L (46-116) 02/06/21 06:19 Creatine Kinase 305 Units/L (26-192) H 01/25/21 20:45 CK-MB (CK-2) 17.6 ng/mL (0-4.0) H* 01/25/21 20:45 CK/CKMB % Calc 5.8 % (<4) 01/25/21 20:45 Troponin I 1.88 ng/mL (0-1.5) H* 01/25/21 20:45 Total Protein 5.0 g/dL (6.4-8.2) L 02/06/21 06:19 Albumin 2.8 g/dL (3.4-5.0) L 02/06/21 06:19 Globulin 2.2 g/dL (2.5-4.5) L 02/06/21 06:19 Albumin/Globulin Ratio 1.3 Ratio (1.1-2.1) 02/06/21 06:19 Specimen Type Catherized urine 01/25/21 03:35 Urine Color Yellow (YELLOW) 01/25/21 03:35 Urine Appearance Clear (CLEAR) 01/25/21 03:35 Urine pH 6.0 (5.0 - 8.0) 01/25/21 03:35 Ur Specific [place] 1.015 (1.000-1.030) 01/25/21 03:35 Urine Protein 2+ (NEGATIVE) 01/25/21 03:35 Urine Glucose (UA) Negative (NEGATIVE) 01/25/21 03:35 Urine Ketones Negative (NEGATIVE) 01/25/21 03:35 Urine Occult Blood Negative (NEGATIVE) 01/25/21 03:35 Urine Nitrite Negative (NEGATIVE) 01/25/21 03:35 Urine Bilirubin Negative (NEGATIVE) 01/25/21 03:35 Urine Urobilinogen Normal (NORMAL) 01/25/21 03:35 Ur Leukocyte Esterase Negative (NEGATIVE) 01/25/21 03:35 Urine RBC None seen /HPF (0-3) 01/25/21 03:35 Urine WBC None seen /HPF (0-5) 01/25/21 03:35 Ur Squamous Epith Cells Negative /HPF (NEGATIVE) 01/25/21 03:35 Urine Bacteria Trace /HPF (NEGATIVE) 01/25/21 03:35 Ur Culture Indicated? No/not indicated 01/25/21 03:35 Vancomycin Trough 18.9 ug/mL (15-20) 01/29/21 19:56 SARS-CoV-2 (PCR) Negative (NEGATIVE) 01/25/21 00:33 Influenza Type A (PCR) Negative (NEGATIVE) 01/25/21 00:33 Influenza Type B (PCR) Negative (NEGATIVE) 01/25/21 00:33 RSV (PCR) Negative (NEGATIVE) 01/25/21 00:33 - Assessment and Plan 1: large spontaneous RT pneumothorax corrected with chest tube .( removed already ). still with extensive SE extending to the face and eyes with normal VSs. COPD with multiple blebs and emphysematous changes . same care and close observation .. will follow in 10 days to check chest wall incision .. - Problem Patient Problems: Patient Problems Pneumothorax, right (Acute) J93.9 COPD exacerbation (Acute) J44.[address] (Resolved) Z96.89
[2021-02-06] MEDS: PULMICORT NEB TX 0.5 MG NEB SCH (09:39)
[2021-02-06] MEDS: SINGULAIR TAB 10 MG PO SCH (09:45)
[2021-02-06] MEDS: LOVENOX INJ 40 MG SYR SC SCH (09:45)
[2021-02-06] MEDS: WELLBUTRIN XL 150 MG (DAILY) PO SCH (09:45)
[2021-02-06] MEDS: NORVASC TAB 10 MG PO SCH (09:45)
[2021-02-06] MEDS: SYNTHROID 50 mcg TAB PO SCH (09:45)
[2021-02-06] MEDS: PEPCID TAB 20 MG PO SCH (09:45)
[2021-02-06] MEDS: LACRI-LUBE S.O.P. AFFEYE SCH (09:45)
[2021-02-06] MEDS: DIFLUCAN 200 MG IV PREMIX* 200 MG/100 ML BAG IV SCH (09:45)
[2021-02-06 13:07] VITALS: BP 156/89
--- NOTE | 2021-02-06 19:29 | PCM.DCPLAN ---
DISCHARGE SUMMARY Admission Date Date of Admission: 01/25/21 Discharge Date Discharge Date: 02/06/21 Admission Diagnoses (1) Hypokalemia: Status: Acute (2) Subcutaneous emphysema: Status: Acute (3) Pneumothorax, right: Status: Acute (4) COPD exacerbation: Status: Acute (5) Weakness: Status: Acute (6) Acute renal injury: Status: Acute (7) Chest tube in place: Status: Resolved Discharge Diagnoses Discharge Diagnosis: 1. Spontaneous Pneumothorax resolved 2. Subcutaneous air- Unresolved 3. COPD Exacerbation resolved 4. Acute Renal Injury Resolved 5. Hypokalemia resolved. Discharge Medications Discharge Medications: Home Medication List amlodipine 10 mg PO DAILY 01/24/21 [History] budesonide 0.5 ea NEB BIDRESP ml 02/06/21 [Rx] bupropion HCl 150 mg PO DAILY tab 02/06/21 [Rx] docusate sodium 200 mg PO HS cap 02/06/21 [Rx] doxycycline hyclate 100 mg PO BID 7 Days #14 cap 02/06/21 [Rx] ipratropium-albuterol 3 ml NEB Q4RESP ml 02/06/21 [Rx] methylprednisolone [Medrol (Jairon)] 4 mg PO ONCE #1 ea 02/06/21 [Rx] white petrolatum-mineral oil [Artificial Tears (elzbieta/min)] 1 applic AFFEYE BID g 02/06/21 [Rx] Prescriptions: doxycycline hyclate LEOBARDO BAUMAN methylprednisolone [Medrol (Jairon)] LEOBARDO BAUMAN Hospital Course Vital Signs: Temperature 97.9 F Pulse Rate [Radial] 76 Pulse Rate 84 Respiratory Rate 10 Blood Pressure [Left Arm] 114/59 Blood Pressure [Right Arm] 158/92 Blood Pressure 156/89 O2 Sat by Pulse Oximetry 93 Latest Lab Results: Laboratory Last Values WBC 9.9 X10^3/uL (3.6-10.0) 02/06/21 06:19 RBC 4.62 X10^6/uL (3.5-5.4) 02/06/21 06:19 Hgb 12.8 g/dL (12.0-16.0) 02/06/21 06:19 Hct 38.5 % (36.0-47.0) 02/06/21 06:19 MCV 83.4 fL (80.0-100.0) 02/06/21 06:19 MCH 27.7 pg (27.0-34.0) 02/06/21 06:19 MCHC 33.2 g/dL (33.0-35.0) 02/06/21 06:19 RDW 14.1 % (11.6-16.5) 02/06/21 06:19 Plt Count 241 X10^3/uL (150.0-450.0) 02/06/21 06:19 Plt Count Comment Adequate (ADEQUATE) 02/06/21 06:19 MPV 7.6 fL (7.4-11.0) 02/06/21 06:19 Neut % (Auto) 93.0 % (42.0-75.0) H 02/06/21 06:19 Lymph % (Auto) 3.9 % (21.0-51.0) L 02/06/21 06:19 [place] % (Auto) 2.3 % (0.0-13.0) 02/06/21 06:19 Eos % (Auto) 0.6 % (0.9-2.9) L 02/06/21 06:19 Baso % (Auto) 0.2 % (0.2-1.0) 02/06/21 06:19 Neut # (Auto) 9.2 x10^3/uL (2.2-4.8) H 02/06/21 06:19 Lymph # (Auto) 0.4 X10^3/uL (1.3-2.9) L 02/06/21 06:19 [place] # (Auto) 0.2 x10^3/uL (0.3-0.8) L 02/06/21 06:19 Eos # (Auto) 0.1 x10^3/uL (0.0-0.2) 02/06/21 06:19 Baso # (Auto) 0.0 X10^3/uL (0.0-0.1) 02/06/21 06:19 Absolute Nucleated RBC 0.0 /100WBC 02/06/21 06:19 Total Counted 100 02/06/21 06:19 Neutrophils % (Manual) 91 % (39-76) H 02/06/21 06:19 Band Neutrophils % 3 % (0-10) 02/05/21 05:00 Lymphocytes % (Manual) 4 % (13-43) L 02/06/21 06:19 Monocytes % (Manual) 5 % (4-9) 02/06/21 06:19 Eosinophils % (Manual) 1 % (0-6) 02/01/21 08:06 Plt Morphology Comment Normal (NORMAL) 02/06/21 06:19 RBC Morphology Normal (NORMAL) 02/06/21 06:19 Sample Site Rrad 01/24/21 23:10 ABG pH 7.330 (7.35-7.45) L 01/24/21 23:10 ABG pCO2 50.0 mmHg (35.0-45.0) H 01/24/21 23:10 ABG pO2 54.0 mmHg (80.0-100.0) L 01/24/21 23:10 ABG HCO3 26.4 mmol/L (22-26) H 01/24/21 23:10 ABG O2 Saturation 85.0 % (90-100) L 01/24/21 23:10 ABG Base Excess -0.1 mmol/L (-2.0-2.0) 01/24/21 23:10 Jose Miguel Test Pos 01/24/21 23:10 A-a Gradient 140.0 mmHg 01/24/21 23:10 FiO2 36.0 01/24/21 23:10 Blood Gas Comments Ramana abg well-mtf 01/24/21 23:10 Sodium 143 mmol/L (136-145) 02/06/21 06:19 Corrected Sodium 144 mmol/L (136-145) 02/06/21 06:19 Potassium 3.4 mmol/L (3.5-5.1) L 02/06/21 06:19 Chloride 103 mmol/L (98-107) 02/06/21 06:19 Carbon Dioxide 34.5 mmol/L (21-32) H 02/06/21 06:19 BUN 18 mg/dL (7-18) 02/06/21 06:19 Creatinine 0.86 mg/dL (0.55-1.02) 02/06/21 06:19 Est GFR (MDRD) Af Amer > 60 (>60) 02/06/21 06:19 Est GFR (MDRD) Non-Af > 60 (>60) 02/06/21 06:19 Glucose 131 mg/dL (65-99) H 02/06/21 06:19 Calcium 8.1 mg/dL (8.5-10.1) L 02/06/21 06:19 Corrected Calcium 9.1 mg/dL (8.5-10.1) 02/06/21 06:19 Magnesium 2.6 mg/dL (1.7-2.9) 02/05/21 05:00 Magnesium Cancelled 02/05/21 05:00 Total Bilirubin 0.30 mg/dL (0.2-1.0) 02/06/21 06:19 AST 23 Units/L (15-37) 02/06/21 06:19 ALT 70 Units/L (12-78) 02/06/21 06:19 Alkaline Phosphatase 54 Units/L (46-116) 02/06/21 06:19 Creatine Kinase 305 Units/L (26-192) H 01/25/21 20:45 CK-MB (CK-2) 17.6 ng/mL (0-4.0) H* 01/25/21 20:45 CK/CKMB % Calc 5.8 % (<4) 01/25/21 20:45 Troponin I 1.88 ng/mL (0-1.5) H* 01/25/21 20:45 Total Protein 5.0 g/dL (6.4-8.2) L 02/06/21 06:19 Albumin 2.8 g/dL (3.4-5.0) L 02/06/21 06:19 Globulin 2.2 g/dL (2.5-4.5) L 02/06/21 06:19 Albumin/Globulin Ratio 1.3 Ratio (1.1-2.1) 02/06/21 06:19 Specimen Type Catherized urine 01/25/21 03:35 Urine Color Yellow (YELLOW) 01/25/21 03:35 Urine Appearance Clear (CLEAR) 01/25/21 03:35 Urine pH 6.0 (5.0 - 8.0) 01/25/21 03:35 Ur Specific [place] 1.015 (1.000-1.030) 01/25/21 03:35 Urine Protein 2+ (NEGATIVE) 01/25/21 03:35 Urine Glucose (UA) Negative (NEGATIVE) 01/25/21 03:35 Urine Ketones Negative (NEGATIVE) 01/25/21 03:35 Urine Occult Blood Negative (NEGATIVE) 01/25/21 03:35 Urine Nitrite Negative (NEGATIVE) 01/25/21 03:35 Urine Bilirubin Negative (NEGATIVE) 01/25/21 03:35 Urine Urobilinogen Normal (NORMAL) 01/25/21 03:35 Ur Leukocyte Esterase Negative (NEGATIVE) 01/25/21 03:35 Urine RBC None seen /HPF (0-3) 01/25/21 03:35 Urine WBC None seen /HPF (0-5) 01/25/21 03:35 Ur Squamous Epith Cells Negative /HPF (NEGATIVE) 01/25/21 03:35 Urine Bacteria Trace /HPF (NEGATIVE) 01/25/21 03:35 Ur Culture Indicated? No/not indicated 01/25/21 03:35 Vancomycin Trough 18.9 ug/mL (15-20) 01/29/21 19:56 SARS-CoV-2 (PCR) Negative (NEGATIVE) 01/25/21 00:33 Influenza Type A (PCR) Negative (NEGATIVE) 01/25/21 00:33 Influenza Type B (PCR) Negative (NEGATIVE) 01/25/21 00:33 RSV (PCR) Negative (NEGATIVE) 01/25/21 00:33 Hospital Course: After admission Gen. Surgery placed a chest tube in patient. She had it for several days and it was pulled on Feb.02. Early in the admission she developed profound subcutaneous emphysema which has improved substantially since its onset. Her COPD Exacerbation has resolved. Renal function has returned to normal and today patient is eager to go home. Her labs are stable but she is still unable to open her eyes due to the swelling from the subcutaneous air. However that is also improving but not resolved. She and her son report they have family at home to help take care of patient until it completely resolves. Since her PCP is out of town this coming week I will have her to follow up with me in my clinic in 3-4 days for hospital follow-up. Instructions Instructions: Hypokalemia Chronic Obstructive Pulmonary Disease, [id number] Pneumothorax Weakness, [id number] COPD and Physical Activity Forms: Excuse From Work or School Precautions for COVID19 [facility] Social Distancing
== END 2021-02-06 13:30 | disposition home or self-care (01) | DRG 201 ==
LOC: ER 22:47 → ICU 01-25 02:38
PROVIDERS: ADMIT Internal Medicine; ATTEND Internal Medicine
DX: J93.11 Primary spontaneous pneumothorax; E87.6 Hypokalemia; Z20.822 Contact with and (suspected) exposure to COVID-19; R06.02 Shortness of breath; N28.9 Disorder of kidney and ureter, unspecified; R26.89 Other abnormalities of gait and mobility; J43.9 Emphysema, unspecified; R13.19 Other dysphagia; B96.1 Klebsiella pneumoniae [K. pneumoniae] as the cause of diseases classified elsewhere; Z60.3 Acculturation difficulty; R53.1 Weakness; I10 Essential (primary) hypertension; R22.1 Localized swelling, mass and lump, neck; Z87.891 Personal history of nicotine dependence; R07.9 Chest pain, unspecified